=== PATIENT | female | born 1935 | race Caucasian/White ===

== ENCOUNTER 2017-01-28 16:22 | Inpatient (IN) | payer MEDICARE ==
[2017-01-28] MEDS ORDERED: NS 0.9% 1000 ML* 1,000 ML IV SCH (17:30)
[2017-01-28 17:36] LABS: Hematocrit 16 % (35-47); Mean Corpuscular HGB Conc 28 g/dl (31-36); Mean Corpuscular Hemoglobin 17 pg (27-31); Mean Corpuscular Volume 59 fL (80-97); Mean Platelet Volume 8 um3 (7.4-10.4); Red Blood Count 2.71 10^6/ul (4.0-5.4); Red Cell Distribution Width 19 % (10.5-15); White Blood Count 6.9 10^3/ul (3.5-10.8)
[2017-01-28 17:37] LABS: Add Diff/Slide Review? Manual Diff Added; Comments Flag Yes
[2017-01-28 17:38] LABS: Hemoglobin 4.5 g/dl (12.0-16.0)
[2017-01-28 17:43] LABS: ALT 17 U/L (7-52); AST 23 U/L (13-39); Alkaline Phosphatase 53 U/L (34-104); Anion Gap 3 mmol/L (2-11); Blood Urea Nitrogen 13 mg/dL (6-24); C Reactive Protein < 1.00 mg/L (< 5.00); CO2 Carbon Dioxide 34 mmol/L (22-32); Calcium 8.9 mg/dL (8.6-10.3); Chloride 94 mmol/L (101-111); EGFR African American 74.8 (>60); EGFR Non-African American 58.2 (>60); Glucose 99 mg/dL (70-100); Magnesium 2.1 mg/dL (1.9-2.7); Potassium 4.2 mmol/L (3.5-5.0); Sodium 131 mmol/L (133-145); Total Protein 6.2 g/dL (6.4-8.9)
--- NOTE | 2017-01-28 17:54 | RAD ---
INDICATION: Shortness of breath. COMPARISON: Comparison is made with a prior chest x-ray study from December 06, 2015. TECHNIQUE: A portable view of the chest was obtained. FINDINGS: Cardiac and mediastinal contours appear to be within normal limits. There is mild prominence of the interstitial markings which which are unchanged. The lungs are hyperinflated and otherwise clear. No pleural effusion is seen. IMPRESSION: FINDINGS SUGGESTIVE OF COPD, NO EVIDENCE FOR ACUTE FINDING.
[2017-01-28 17:55] LABS: TSH (Thyroid Stimulating Horm) 2.39 mcIU/mL (0.34-5.60)
[2017-01-28 17:59] LABS: Eosinophils % 1 % (0-6); Hypochromasia 3+; Macrocytosis 2+; Microcytosis 1+; Neutrophil % 72 % (38-83)
[2017-01-28 18:22] LABS: Albumin 4.2 g/dL (3.2-5.2); Creatine Kinase 262 U/L (10-223)
[2017-01-28] MEDS ORDERED: Ondansetron INJ* 2 MG/ML VIAL IV PRN (18:50)
[2017-01-28] MEDS ORDERED: Acetaminophen TAB* 325 MG PO PRN (18:50)
[2017-01-28] MEDS ORDERED: Albuterol 2.5 MG/3 ML NEB.SOL* (0.083%) INH PRN (18:54)
[2017-01-28] MEDS ORDERED: Cyclobenzaprine TAB* 10 MG PO PRN (18:55)
[2017-01-28] MEDS ORDERED: Docusate CAP* 100 MG PO PRN (18:55)
--- NOTE | 2017-01-28 19:12 | ED ---
I, Cong,Angelia, scribed for Tone Hsu MD on 01/28/17 at 1723 . Complex/Multi-Sys Presentation - HPI Summary HPI Summary: This 81 y/o female presents to ED for acute anemia today. Pt was at Dr. Bird' s office today for regular check up and came back to find message in machine informing that pt is "dangerously anemic" and strongly recommending a visit to ED. Pt currently reports exertional SOB and lightheaded dizziness. She denies any melena, or blood noted in stool. Pt is not on blood thinner. PMHx is significant for cardiac valvular dz, known anemia, COPD with home oxygen use of 3 L all day. - History Of Current Complaint Chief Complaint: EDWeakness Time Seen by Provider: 01/28/17 17:11 Hx Obtained From: Patient, Medical Records Onset/Duration: Sudden Onset Timing: Constant Associated Signs And Symptoms: Positive: Dizziness - lightheaded dizziness, SOB. Negative: Melena, Fever, Anticoagulation Therapy - Allergies/Home Medications Allergies/Adverse Reactions: Allergies Allergy/AdvReac Type Severity Reaction Status Date / Time Codeine AdvReac Intermediate Vomiting Verified 01/28/17 16:40 Hydrocodone AdvReac Intermediate Vomiting Verified 01/28/17 16:40 Propoxyphene [From Darvon] AdvReac Intermediate Vomiting Verified 01/28/17 16:40 Tramadol [From Ultram] AdvReac Intermediate Vomiting Verified 01/28/17 16:40 Diphenhydramine AdvReac Unknown Unknown Verified 01/28/17 16:40 [From Benadryl] Reaction Details Home Medications: Home Medications ALPRAZolam TAB* [Xanax TAB*] 0.25 mg PO TID PRN 01/28/17 [History Confirmed ] Albuterol Sulfate [Proair Respiclick] 2 puff INH QID PRN 01/28/17 [History Confirmed 01/28/17] Budesonide NEB* [Pulmicort NEB*] 0.5 mg INH BID PRN 01/28/17 [History Confirmed 01/28/17] Cimetidine TAB (NF) [Tagamet TAB (NF)] 400 mg PO BID PRN 01/28/17 [History Confirmed 01/28/17] Docusate Sodium [Stool Softener] 100 mg PO BID PRN 01/28/17 [History Confirmed 01/28/17] Hypromellose (Ophth) [Systane Overnight Therapy] 0.3 % BOTH EYES BEDTIME PRN [History Confirmed 01/28/17] Montelukast Sodium TAB* [Singulair TAB*] 10 mg PO DAILY 01/28/17 [History Confirmed 01/28/17] Omeprazole CAP* [Prilosec CAP* 20 MG] 20 mg PO DAILY 01/28/17 [History Confirmed 01/28/17] guaiFENesin ER TAB [Mucinex*] 600 mg PO BID PRN 01/28/17 [History Confirmed ] PMH/Surg Hx/FS Hx/Imm Hx Endocrine/Hematology History: Denies: Hx Diabetes Cardiovascular History: Reports: Hx Angina - usually mid to left chest, Hx Hypertension, Hx Valvular Heart Disease, Other Cardiovascular Problems/ Disorders - Aortic stenosis Respiratory History: Reports: Hx Chronic Obstructive Pulmonary Disease (COPD) GI History: Reports: Hx Diverticulosis - divericulitis Musculoskeletal History: Reports: Hx Arthritis - lumbar spine, Hx Fibromyalgia Sensory History: Reports: Hx Contacts or Glasses, Hx Glaucoma, Hx Vision Problem Opthamlomology History: Reports: Hx Contacts or Glasses, Hx Glaucoma, Hx Vision Problem Neurological History: Reports: Hx Headaches Psychiatric History: Reports: Hx Anxiety, Hx Depression - Surgical History Surgery Procedure, Year, and Place: HYSTERECTOMY, TONSILLECTOMY, BILAT BREAST BIOPSIES (BENIGN FIBROID CYSTS), APPENDECTOMY Hx Anesthesia Reactions: No Infectious Disease History: No Infectious Disease History: Denies: Traveled Outside the [place] in Last 30 Days - Family History Known Family History: Positive: Cardiac Disease - Positive heart failure to both parents, Other - Positive breast CA to sister - Social History Occupation: Retired Alcohol Use: None Hx Substance Use: No Substance Use Type: Reports: None Hx Tobacco Use: Yes Smoking Status (MU): Former Smoker Review of Systems Negative: Fever, Chills Positive: Other - anemic per bloodwork from Dr. Bird's office. Positive: Shortness Of Breath - exertional Neurological: Other - positive for dizziness Negative: Anxious, Depressed All Other Systems Reviewed And Are Negative: Yes Physical Exam Triage Information Reviewed: Yes Vital Signs On Initial Exam: Initial Vitals Temp Pulse Resp BP Pulse Ox 99.7 F 93 20 120/102 100 03/13/17 16:37 01/28/17 16:37 01/28/17 16:37 01/28/17 16:37 01/28/17 16:37 Vital Signs Reviewed: Yes Appearance: Positive: Well-Appearing, No Pain Distress Skin: Positive: Pale Head/Face: Positive: Normal Head/Face Inspection Eyes: Positive: EOMI, GRACE Neck: Positive: Supple, Nontender Respiratory/Lung Sounds: Positive: Clear to Auscultation, Breath Sounds Present Cardiovascular: Positive: Murmur Abdomen Description: Positive: Nontender, No Organomegaly Bowel Sounds: Positive: Present Musculoskeletal: Positive: Strength/ROM Intact Neurological: Positive: Sensory/Motor Intact, Alert, Oriented to Person Place, Time Psychiatric: Positive: Affect/Mood Appropriate AVPU Assessment: Alert Diagnostics - Vital Signs Vital Signs Temp Pulse Resp BP Pulse Ox 01/28/17 16:37 99.7 F 93 20 120/102 100 - Laboratory Lab Results: Lab Results 01/28/17 01/28/17 01/28/17 Range/Units 16:50 16:50 16:50 WBC 6.9 (3.5-10.8) 10^3/ul RBC 2.71 L (4.0-5.4) 10^6/ul RBC (Retic) Cancelled Hgb 4.5 L* (12.0-16.0) g/dl Hct 16 L (35-47) % HCT (Retic) Cancelled MCV 59 L (80-97) fL MCH 17 L (27-31) pg MCHC 28 L (31-36) g/dl RDW 19 H (10.5-15) % Plt Count 269 (150-450) 10^3/ul MPV 8 (7.4-10.4) um3 Absolute Neuts (auto) 5.0 (1.5-7.7) 10^3/ul Absolute Lymphs (auto) 1.3 (1.0-4.8) 10^3/ul Absolute Monos (auto) 0.6 (0-0.8) 10^3/ul Absolute Eos (auto) 0.07 (0-0.6) 10^3/ul Absolute Basos (auto) 0 (0-0.2) 10^3/ul Absolute Nucleated RBC 0 10^3/ul Neutrophils % 72 (38-83) % Lymphocytes % 19 L (25-47) % Monocytes % 8 (0-13) % Eosinophils % 1 (0-6) % Normal RBC Morphology Not Reportable Hypochromasia 3+ Microcytosis 1+ Macrocytosis 2+ Acanthocytes (Spur) 2+ Retic Count, Calc Cancelled Corrected Retic Count Cancelled Retic Shift Factor Cancelled Retic Production Index Cancelled Immature Retic Fraction Cancelled Mean Retic Volume Cancelled INR (Anticoag Therapy) 1.04 (0.89-1.11) APTT 27.3 (26.0-36.3) seconds D-Dimer, Quantitative < 200 (Less Than 230) ng/mL Sodium 131 L (133-145) mmol/L Potassium 4.2 (3.5-5.0) mmol/L Chloride 94 L (101-111) mmol/L Carbon Dioxide 34 H (22-32) mmol/L Anion Gap 3 (2-11) mmol/L BUN 13 (6-24) mg/dL Creatinine 0.93 (0.51-0.95) mg/dL Est GFR ( Amer) 74.8 (>60) Est GFR (Non-Af Amer) 58.2 (>60) BUN/Creatinine Ratio 14.0 (8-20) Glucose 99 (70-100) mg/dL Lactic Acid (0.5-2.0) mmol/L Calcium 8.9 (8.6-10.3) mg/dL Magnesium 2.1 (1.9-2.7) mg/dL Iron Pending TIBC Pending % Saturation Pending Unsat Iron Binding Pending Ferritin Pending Total Bilirubin 0.30 (0.2-1.0) mg/dL AST 23 (13-39) U/L ALT 17 (7-52) U/L Alkaline Phosphatase 53 (34-104) U/L Lactate Dehydrogenase Pending Total Creatine Kinase 262 H (10-223) U/L CK-MB (CK-2) 12.9 H (0.6-6.3) ng/mL Troponin I 0.00 (<0.04) ng/mL C-Reactive Protein < 1.00 (< 5.00) mg/L B-Natriuretic Peptide ( - 100) pg/mL Total Protein 6.2 L (6.4-8.9) g/dL Albumin 4.2 (3.2-5.2) g/dL Globulin 2.0 (2-4) g/dL Albumin/Globulin Ratio 2.1 (1-3) Vitamin B12 Pending Folate Pending TSH 2.39 (0.34-5.60) mcIU/mL Blood Type Antibody Screen Crossmatch 01/28/17 01/28/17 01/28/17 Range/Units 16:50 16:50 16:50 WBC (3.5-10.8) 10^3/ul RBC (4.0-5.4) 10^6/ul RBC (Retic) Hgb (12.0-16.0) g/dl Hct (35-47) % HCT (Retic) MCV (80-97) fL MCH (27-31) pg MCHC (31-36) g/dl RDW (10.5-15) % Plt Count (150-450) 10^3/ul MPV (7.4-10.4) um3 Absolute Neuts (auto) (1.5-7.7) 10^3/ul Absolute Lymphs (auto) (1.0-4.8) 10^3/ul Absolute Monos (auto) (0-0.8) 10^3/ul Absolute Eos (auto) (0-0.6) 10^3/ul Absolute Basos (auto) (0-0.2) 10^3/ul Absolute Nucleated RBC 10^3/ul Neutrophils % (38-83) % Lymphocytes % (25-47) % Monocytes % (0-13) % Eosinophils % (0-6) % Normal RBC Morphology Hypochromasia Microcytosis Macrocytosis Acanthocytes (Spur) Retic Count, Calc Corrected Retic Count Retic Shift Factor Retic Production Index Immature Retic Fraction Mean Retic Volume INR (Anticoag Therapy) (0.89-1.11) APTT (26.0-36.3) seconds D-Dimer, Quantitative (Less Than 230) ng/mL Sodium (133-145) mmol/L Potassium (3.5-5.0) mmol/L Chloride (101-111) mmol/L Carbon Dioxide (22-32) mmol/L Anion Gap (2-11) mmol/L BUN (6-24) mg/dL Creatinine (0.51-0.95) mg/dL Est GFR ( Amer) (>60) Est GFR (Non-Af Amer) (>60) BUN/Creatinine Ratio (8-20) Glucose (70-100) mg/dL Lactic Acid 0.9 (0.5-2.0) mmol/L Calcium (8.6-10.3) mg/dL Magnesium (1.9-2.7) mg/dL Iron TIBC % Saturation Unsat Iron Binding Ferritin Total Bilirubin (0.2-1.0) mg/dL AST (13-39) U/L ALT (7-52) U/L Alkaline Phosphatase (34-104) U/L Lactate Dehydrogenase Total Creatine Kinase (10-223) U/L CK-MB (CK-2) (0.6-6.3) ng/mL Troponin I (<0.04) ng/mL C-Reactive Protein (< 5.00) mg/L B-Natriuretic Peptide 74 ( - 100) pg/mL Total Protein (6.4-8.9) g/dL Albumin (3.2-5.2) g/dL Globulin (2-4) g/dL Albumin/Globulin Ratio (1-3) Vitamin B12 Folate TSH (0.34-5.60) mcIU/mL Blood Type B Positive Antibody Screen Negative Crossmatch See Detail Result Diagrams: 01/28/17 16:50 01/28/17 16:50 Lab Statement: Any lab studies that have been ordered have been reviewed, and results considered in the medical decision making process. - Radiology CXR Xray Interpretation: No Acute Changes - COPD. No acute findings. Radiology Interpretation Completed By: Radiologist - EKG 1712 Cardiac Rate: NL - 92 bpm EKG Rhythm: Sinus Rhythm ST Segment: Normal Ectopy: None - Additional Comments Diagnostic Additional Comments: Stool Occult -- negative Re-Evaluation - Re-Evaluation First Eval Re-Evaluation Time: 17:44 Comment: MD in room to update pt on bloodwork results. Plan of care involving possible hospital admission and blood transfusion is discussed, and pt and son present at bedside are agreeable. Complex Multi-Symp Course/Dx Assessment/Plan: ADMIT HOSPITALIST STABLE - Diagnoses Provider Diagnoses: Anemia, Weakness - Physician Notifications Discussed Care Of Patient With: Dr. Verma(Hospitalist) paged at 1743 PM. Call returned at 1804 PM. Discharge - Discharge Plan Condition: Stable Disposition: ADMITTED TO [facility] documentation as recorded by the Cong lopez Soohyun accurately reflects the service I personally performed and the decisions made by me, Tone Hsu MD.
[2017-01-28 19:14] LABS: Total Iron Binding Capacity 515 mcg/dL (250-450); Transferrin 368 mg/dL (203-362)
[2017-01-28 19:35] LABS: Ferritin < 10.0 ng/mL (11-307)
[2017-01-28 19:37] LABS: Iron < 15 ug/dL (50-212)
[2017-01-28 19:39] LABS: Folate 16.58 ng/mL (>3.99)
[2017-01-28 19:40] LABS: Vitamin B12 506 pg/mL (180-914)
[2017-01-28] MEDS: ALPRAZolam TAB* 0.25 MG PO PRN (20:02)
[2017-01-28] MEDS: Omeprazole CAP* 20 MG PO SCH (20:04)
[2017-01-28 20:35] LABS: Urine Bilirubin Negative (Negative); Urine Glucose Negative (Negative); Urine Nitrite Negative (Negative)
[2017-01-28] MEDS ORDERED: Furosemide IV* 10 MG/ML 2 ML VIAL (20 MG) IV SLOW PU ONE (21:20)
[2017-01-28] MEDS: Budesonide NEB* 0.5 MG/2 ML NEB.SOLN INH SCH ×2 (21:37→21:39)
--- NOTE | 2017-01-29 00:51 | HP ---
HISTORY AND PHYSICAL: DATE OF ADMISSION: 01/28/17 PRIMARY CARE PROVIDER: Dr. Bird ATTENDING PHYSICIAN WHILE IN THE HOSPITAL: Dr. Swetha Saleh *(report dictated by Chris Vines NP). CONSULTING ONCOLOGIST: Dr. Salazar. CHIEF COMPLAINT: Abnormal blood work. HISTORY OF PRESENT ILLNESS: Ms. Gomez is a 81-year-old female patient who came into the ER today after she was instructed to do because she was profoundly anemic. The patient states that over the last week or so, she has been feeling a little bit more short of breath. She says she is usually able to walk from her entire trailer and not get short of breath, but she has noticed that she has had more trouble doing this, and she has noticed that she has been needing to turn up her oxygen over the last couple of months. She says that she does take prednisone and Aleve. She takes the Aleve about 3 times a week and has been doing that for the last couple of months. Says she has been taking steroids on a chronic basis since being here about a year ago. She says that she has not noticed any tarry black stools, that all of her bowel movements have been brown. She was heme negative here in the ER. She denied any chest pain. Denied shortness of breath at rest. She came to the ER, was evaluated. It was noted that her hemoglobin was 4.5. She denied any coffee- ground emesis. Denies having any abdominal pain. Her only main complaint is that she feels short of breath with exertion. She denies having any syncopal episodes, lightheadedness, and she denies feeling dizzy. She was evaluated in the ER because of low H and H. Hospitalist service was asked to evaluate for admission. PAST MEDICAL HISTORY: Significant for: 1. Aortic stenosis. 2. COPD. 3. Anxiety. PAST SURGICAL HISTORY: 1. She has had a tonsillectomy. 2. Hysterectomy. 3. Breast biopsy which was benign. HOME MEDICATIONS: According to the list that we were able to obtain include: 1. Prednisone 2.5 mg p.o. daily. 2. Zofran 4 mg p.o. every 8 hours as needed. 3. Pulmicort 0.5 inhaled b.i.d. as needed. 4. Desloratadine 5 mg p.o. daily as needed. 5. Stool softener 100 mg p.o. b.i.d. as needed. 6. ProAir 2 puffs inhaled q.i.d. as needed. 7. Tagamet 400 mg p.o. b.i.d. as needed. 8. Systane eye drops both eyes at bedtime as needed. 9. Flexeril 10 mg p.o. t.i.d. as needed. 10. Refresh liquid gel 1 drop both eyes b.i.d. as needed. 11. Fosamax 70 mg daily. 12. Mucinex 600 mg p.o. b.i.d. as needed. 13. DuoNeb 1 neb inhaled b.i.d. as needed. 14. Prilosec 20 mg daily. 15. Xanax 0.25 mg p.o. t.i.d. as needed. 16. Spiriva 1 capsule inhaled daily. 17. Singulair 10 mg p.o. daily. ALLERGIES TO MEDICATIONS: Include CODEINE, HYDROCODONE, DARVOCET, TRAMADOL, and BENADRYL. FAMILY HISTORY: Mother had a history of CHF. Father had a history of CHF. SOCIAL HISTORY: She was a smoker. She smoked for about 44 years. She quit 22 years ago. Does not drink alcohol. Surrogate decision maker is her son, Walter. REVIEW OF SYSTEMS: There is no documented fever. She denied having any significant weight change. There was no double vision. No ear discharge. No rhinorrhea. No sore throat. No thyroid enlargement. Denies any chest pain. there is orthopnea. There is dyspnea on exertion. No abdominal pain. No nausea. No vomiting. No dysuria. No frequency. No loss of consciousness. No pruritus. No skin ulcerations. Review of 14 systems completed, all others negative. PHYSICAL EXAMINATION GENERAL: At this time, Ms. Gomez is a 81-year-old female patient. She appears to be well developed. She is sitting in the ER stretcher and does not appear to be in any acute distress. VITAL SIGNS: Blood pressure of 126/65 with a pulse of 93, respirations were 20 , O2 sat was 100%, temperature was 99.7. HEENT: Head atraumatic and normocephalic. Eyes: EOMs are intact. Sclerae anicteric. Throat: Oral mucosa appears to be dry. No oropharyngeal erythema. NECK: Supple. LUNGS: Clear to auscultation bilaterally. They were diminished, but no wheezes , rales, or rhonchi. HEART: Sounds S1, S2. Regular rate and rhythm. No murmurs, rubs, or gallops. ABDOMEN: Soft, it was flat, nontender. Bowel sounds present. EXTREMITIES: Pulses are 2+ throughout. She is able to move all 4 extremities with 5/5 strength. NEUROLOGIC: The patient is awake, alert, and oriented x3. No gross focal deficits. SKIN: Intact. LABORATORY DATA AND DIAGNOSTIC STUDIES: Today revealed a WBC of 6.9, RBC of 2.71, hemoglobin of 4.5, hematocrit of 16, platelet count of 269. She had an INR of 1.04. PTT 27.3. D-dimer less than 200. Sodium 131, potassium 4.2, chloride of 94, bicarb 34, BUN 13, creatinine of 0.93, glucose 99, lactic 0.9, calcium 8.9, magnesium 2.1. Total bili 0.3, AST 23, ALT 17, alk phos 53. CK 262. Troponin 0. BNP was 74. TSH of 2.39. She had an EKG which showed a normal sinus rhythm, rate of 92. No ST elevations or T-wave inversions were noted. She had a chest x-ray obtained today which revealed findings suggestive of COPD. No acute findings. She had a Hemoccult which was negative. Old medical records were reviewed. ASSESSMENT AND PLAN: Ms. Gomez is a 81-year-old female patient today coming with abnormal blood work from the outpatient setting. She was evaluated here in the ED. Hospitalist service was asked to evaluate for admission due to low H and H. She will be admitted under inpatient status for: 1. Anemia: The etiology is unclear. Certainly, she may have had a slow upper GI bleed that has progressed and it has been a slow trickle, if you will, and she has been on steroids and prednisone. Certainly, she does appear to have a microcytic anemia, so I think at this point I did touch base with Dr. Clark who proposed to do an upper GI in the morning. I did put her on a b.i.d. PPI for the time being. I do not think she is actively bleeding right at this moment and I do not think she needs a Protonix drip. We will give her 2 units of blood, we will do serial H and H, make her n.p.o. after midnight. I did touch base with Dr. Salazar. The plan will be send off iron studies, B12, reticulocyte count, and LDH. If the iron studies are low, then Heme/Onc will not follow, but if they are normal, then Heme/Onc will get involved, that was the plan that I proposed with Dr. Salazar, which I think is appropriate. If the iron is low, obviously we will supplement it. Her Hemoccult here was negative and she is hemodynamically stable.. We will follow. 2. Aortic stenosis: Follow up with Dr. Francisco. 3. Chronic obstructive pulmonary disease: Breathing appears to be stable at this point. I think the reason she has been feeling dyspnea on exertion is because her H and H has been so low, so we will replace and give her some blood. I have ordered p.r.n. nebs and I will continue her prednisone and her O2 as prescribed. 4. Anxiety: Continue p.r.n. Xanax. 5. DVT prophylaxis: I am just going to put her on SCDs for the time being. 6. Fluids, electrolytes, and nutrition: She can have a regular diet until midnight. 7. Code status: She is a DNR. TIME SPENT: Time spent on the admission was approximately 60 minutes; greater than half the time was spent [id number] with the patient obtaining my history and physical, other half the time spent going over the plan of care with the patient and implementing plan of care. I did discuss the plan of care with my attending, Dr. Saleh; she is in agreement. CHRIS VINES NP CC: Dr. Bird; Dr. Salazar; Dr. Clark* [id number]/[facility] #: [id number] [facility]ENTERTierra
[2017-01-29 03:43] LABS: Hematocrit 25 % (35-47)
[2017-01-29 03:55] LABS: Comments Flag Yes
[2017-01-29] MEDS: Budesonide NEB* 0.5 MG/2 ML NEB.SOLN INH SCH ×3 (05:22→19:28)
[2017-01-29] MEDS: ALPRAZolam TAB* 0.25 MG PO PRN ×2 (05:52→17:23)
[2017-01-29 07:14] LABS: BUN/Creatinine Ratio 22.9 (8-20); Calcium 8.6 mg/dL (8.6-10.3); EGFR African American 160.4 (>60); EGFR Non-African American 124.8 (>60); Potassium 3.9 mmol/L (3.5-5.0)
[2017-01-29 07:18] LABS: Hematocrit 27 % (35-47); Hemoglobin 8.1 g/dl (12.0-16.0); Mean Corpuscular HGB Conc 31 g/dl (31-36); Mean Corpuscular Hemoglobin 22 pg (27-31); Mean Corpuscular Volume 70 fL (80-97); Mean Platelet Volume 9 um3 (7.4-10.4); Red Blood Count 3.76 10^6/ul (4.0-5.4); Red Cell Distribution Width 29 % (10.5-15)
[2017-01-29 07:22] LABS: Add Diff/Slide Review? Manual Diff Added; Comments Flag Yes
[2017-01-29] MEDS ORDERED: Omeprazole CAP* 20 MG PO SCH (07:30)
[2017-01-29 08:22] LABS: Eosinophils % 1 % (0-6); Neutrophil % 74 % (38-83)
[2017-01-29 08:23] LABS: Hypochromasia 3+; Microcytosis 3+
[2017-01-29] MEDS: predniSONE TAB* 5 MG PO SCH (08:47)
[2017-01-29] MEDS: Montelukast Sodium TAB* 10 MG PO SCH (08:47)
[2017-01-29] MEDS: Pantoprazole IV* 40 MG IV SCH (08:47)
[2017-01-29] MEDS: Omeprazole CAP* 20 MG PO SCH (08:53)
[2017-01-29] MEDS ORDERED: Spiriva Inhaler DEVICE* 1 EACH DEVICE ONE (09:00)
[2017-01-29] MEDS: Tiotropium CAP.INH* CAP.INH/18 MCG INH SCH (09:08)
[2017-01-29] MEDS: [UNRECOGNIZED DRUG - OTHER] ALT NARE PRN ×2 (10:22→18:25)
[2017-01-29] MEDS ORDERED: Midazolam* 1 MG/ML 5 ML VIAL (5 MG) ONE (10:55)
[2017-01-29] MEDS ORDERED: Meperidine SYRINGE* 50 MG/ML ONE (10:55)
--- NOTE | 2017-01-29 15:43 | PN ---
Subjective Date of Service: 01/29/17 Interval History: HOSPITALIST PROGRESS NOTE Patient seen and examined at bedside. Anxious about her procedure, but offers no other complaints. Family History: Unchanged from Admission Social History: Unchanged from Admission Past Medical History: Unchanged from Admission Objective Active Medications: Acetaminophen (Tylenol Tab*) 650 mg PO Q4H PRN PRN Reason: FEVER/PAIN Albuterol (Ventolin 2.5 Mg/3 Ml Neb.Maureen*) 2.5 mg INH Q2H PRN PRN Reason: SOB/WHEEZING Last Admin: 01/29/17 05:21 Dose: 2.5 mg Alprazolam (Xanax Tab*) 0.25 mg PO TID PRN PRN Reason: ANXIETY Last Admin: 01/29/17 05:52 Dose: 0.25 mg Budesonide (Pulmicort Neb*) 0.5 mg INH BID [facility] Last Admin: 01/29/17 09:12 Dose: Not Given Cyclobenzaprine HCl (Flexeril Tab*) 10 mg PO TID PRN PRN Reason: spams Docusate Sodium (Colace Cap*) 100 mg PO BID PRN PRN Reason: CONSTIPATION Montelukast Sodium (Singulair Tab*) 10 mg PO DAILY [facility] Last Admin: 01/29/17 08:47 Dose: 10 mg Pto - Vicks (Vapoinhaler 1 Aer) 1 aer ALT NARE QID PRN PRN Reason: nasal congestion Last Admin: 01/29/17 10:22 Dose: 1 aer Ondansetron HCl (Zofran Inj*) 4 mg IV Q6H PRN PRN Reason: NAUSEA Last Admin: 01/29/17 12:47 Dose: 4 mg Pantoprazole Sodium (Protonix Iv*) 40 mg IV DAILY [facility] Last Admin: 01/29/17 08:47 Dose: 40 mg Prednisone (Deltasone Tab*) 2.5 mg PO DAILY WITH MEAL [facility] Last Admin: 01/29/17 08:47 Dose: 2.5 mg Sodium Chloride (Sodium Chloride 0.65% Nasal Marana*) 2 spray BOTH NARES ONCE PRN PRN Reason: MD HSU Tiotropium Shelby (Spiriva Cap.Inh*) 1 cap INH DAILY [facility] Last Admin: 01/29/17 09:08 Dose: 1 cap.inh Vital Signs 01/29/17 01/29/17 01/29/17 08:00 09:12 12:41 Temperature 97.9 F Pulse Rate 90 86 Respiratory 16 16 16 Rate Blood Pressure 166/83 (mmHg) O2 Sat by Pulse 98 98 Oximetry Oxygen Devices in Use Now: Nasal Cannula Appearance: Pleasant elderly lady sitting up in bed in NAD. Eyes: No Scleral Icterus Ears/Nose/Mouth/Throat: Mucous Membranes Moist Neck: Trachea Midline Respiratory: Symmetrical Chest Expansion and Respiratory Effort, Clear to Auscultation Cardiovascular: RRR - Normal S1 and S2 Abdominal: NL Sounds; No Tenderness; No Distention Neurological: Alert and Oriented x 3, NL Muscle Strength and Tone Lines/Tubes/Other Access: Clean, Dry and Intact Peripheral IV Result Diagrams: 01/29/17 06:11 01/29/17 06:11 Assess/Plan/Problems-Billing Assessment: Mrs. Gomez is a 81yo F with PMH of mild aortic stenosis, COPD, anxiety, who was sent to ED due to severe anemia with Hb 4.5. - Patient Problems (1) GI bleed Comment: - Although the patient denies melena and hematemesis, she was on NSAIDs and steroids before. - Prelim report of EGD is of blood in the duodenum, but no ulcer visualized. - Continue PPI. - No indication for colonoscopy at this time. (2) Iron deficiency anemia Comment: - Associated with slow GI bleed. - S/p 2 PRBC - Hb 8.1 with symptomatic improvement. - Anemia w/u reviewed - severe iron deficiency with iron <15 and ferritin<10 - d /w Dr. Clark will give Venofer prior to discharge and may benefit of further infusions as outpatient. (3) COPD (chronic obstructive pulmonary disease) Comment: - Stable. - Continue bronchodilators, steroids, and supplemental O2. (4) Anxiety Comment: - Continue PRN Xanax. (5) DVT prophylaxis Comment: - Pharmacological prophylaxis contraindicated in the setting of GI bleed/severe anemia. - SCDs. Status and Disposition: Inpatient. Will try to contact family member who's a RN, as she may be helpful with patient's follow up as outpt.
[2017-01-29] MEDS ORDERED: Iron Sucrose* 200 MG in NS 0.9% 250 ML* 250 ML IVPB ONE (15:47)
[2017-01-29] MEDS ORDERED: PROCHLORPERAZINE INJ 5 MG/ML 2 ML VIAL IV PRN (16:34)
[2017-01-29] MEDS: Saline NASAL SPRAY 0.65%* BTL BOTH NARES PRN (20:15)
--- NOTE | 2017-01-30 00:35 | CONS ---
GASTROENTEROLOGY CONSULT: DATE : 01/29/17 CONSULTING PROVIDERS: Yovani Bird*; Chris Vines NP REASON FOR CONSULT: Profound microcytic anemia with no overt GI symptoms and heme- negative stool. HISTORY OF PRESENT ILLNESS: This 81-year-old woman came to the ER complaining of shortness of breath with reported hemoglobin below 5. She had been feeling fatigued for a number of weeks and went to see Dr Bird. He found her blood count to be quite low and sent her to the emergency room. The prior known normal CBC was November 2015, the hemoglobin of 11.6, and at that time an MCV of 91. Over the last year or two, she has not had any dyspepsia or vomiting. Her appetite has been pretty good. She said she eats a lot of junk food for breakfast and then gets Meals on Wheels for lunch and dinner. She seemed to enjoy describing eating Erin cakes, donuts, Pop-Tarts, and the like. Her bowel pattern is little bit constipated. She denies any rectal bleeding or black stools. Initially NSAIDs were denied; however, specific questions revealed the use of naproxen for dental pain and other indications begun around October 2015. She denies using any aspirin. Because of COPD, she had been taking low dose chronic prednisone. PAST MEDICAL HISTORY: 1. Osteoporosis - loss of height recently. 2. COPD - quit smoking 10 or more years ago. 3. Anxiety. 4. Status post complete hysterectomy in 1976. 5. Status post incidental appendectomy. 6. Status post tonsillectomy. 7. Colon Polyps - May 2009 2 Tubular Adenomas in f/u to [address] Chapin MEDICATIONS: The hospitalist H and P lists 17 items, 12 of which are p.r.n.'s and that might merit verification. SOCIAL HISTORY: She is retired, with her daughter, Denice Morelos, living with her for 20 years. Her son lives in [place] and his , Charlene Hdez, is a nurse at [employer]. REVIEW OF SYSTEMS: She had a negative cardiac catheterization in 2008 with an ejection fraction in the 55% to 60%. There is no history of syncope, arrhythmias, hemoptysis, TB, hepatitis, or gallstones. She had a breast biopsy many years ago that was negative. She has unspecified aortic stenosis. PHYSICAL EXAM: She is a frail elderly woman, short stature, in a wheelchair, and with seeming good energy level and is a good and energetic historian. HEENT exam shows no icterus. She has no adenopathy. Her lungs are clear with diminished breath sounds, but remarkably slow, but no wheezes. Breast and pelvic exam is deferred. The abdomen is mildly rounded, quite soft, and nontender. There are no hernias. Perianal inspection is normal. Rectal reveals very nodular, gummy, firm stool, difficult to sample that turned out to be heme negative. It is virtually an impaction. Extremities show no edema. HOSPITAL COURSE: She has been transfused 2 units and her hemoglobin is up to 8.1. BUN is unchanged at 11, creatinine 0.48. Iron less than 15, TIBC 15, saturation 3%. Vitamin B12 506. LDH 187. IMPRESSION: This 81-year-old woman with advanced chronic obstructive pulmonary disease presented with very low hemoglobin and MCV and as expected with those values severe iron deficiency documented. She has not had any focal gastrointestinal symptom and no overt signs of gastrointestinal blood loss and indeed her stool has been Hemoccult negative twice. With a history of taking naproxen multiple doses a week for over a year, an upper gastrointestinal source or diffuse upper gastrointestinal oozing seems likely explanation possibly in conjunction with reduced iron absorption secondary to taking Prilosec. Not entirely clear why she is on the Prilosec. At this time, upper endoscopy appears appropriate and then reevaluation of her med list where her [id number] could play a very strong supporting role. Low-dose iron supplementation would likely help. There is no strong indication that colonic problem is contributing to this and with her severe chronic obstructive pulmonary disease, repeating her colonoscopy at this time still appears not to be a priority. [id number]/[facility] #: [id number] STEFFANY
[2017-01-30] MEDS: ALPRAZolam TAB* 0.25 MG PO PRN ×3 (04:05→16:27)
[2017-01-30] MEDS: Saline NASAL SPRAY 0.65%* BTL BOTH NARES PRN (04:05)
--- NOTE | 2017-01-30 05:34 | PRO ---
DATE: 01/29/17 - Inpatient room #415-02 REFERRING PHYSICIAN: Yovani Bird* PROCEDURE: Upper gastrointestinal endoscopy through the distal duodenum with pediatric ultra slim scope. INDICATION: A 81-year-old woman presented to the emergency room with hemoglobin of 4.5. She was very tired and her primary physician obtained a CBC and then sent her to the ER. She denies any vomiting or overt bleeding. She has been constipated. In the ER , stool was heme negative. The use of Aleve was revealed and gentle followup questions continue to find other uses for it. She also takes some ibuprofen for headaches. Naproxen is used for dental pain. She appears to have been on omeprazole, though she has a list of 17 meds (12 of them p.r.n.'s) and the list would merit verification. ENDOSCOPIST: Dr. Clark. MEDICATIONS: Midazolam 3.5, meperidine 25 with good comfort and no gagging. 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 She is in no overt distress. She appears underweight. EGD: Larynx - symmetric uninflamed views. Esophagus - easily entered. The mucosa is normal in the upper mid and lower esophagus with EG junction at 37 to 38, snug and without erosions or chronic changes. Stomach - generally normal mucosa of the cardia, fundus, body, and antrum. No erosions were seen and no wispy blood loss or deformity or ulcers. There were no polyps. Duodenum - the pylorus and bulb appear normal. Just entering the second portion , a brief wisp of blood-stained mucus was seen and between folds in the distal second portion, a little bit of blood splattering was seen on the wall. There was not any active welling up. No underlying pathology could be identified. The blood was then washed clear and did not reaccumulate. There was no underlying pathology seen and thus no target to direct therapy. It clearly did not appear to be an abrasion from scope passage, but a primary very low level bleeding process before scope entrance. The third and fourth portion of the duodenum appeared normal. IMPRESSION: 1. Normal esophagus and normal stomach - this does raise the question of how she got on the omeprazole to begin with. 2. Focal duodenal bleeding - very low grade and at this time, if the naproxen is stopped, it is certainly possible no further bleeding will occur. Low dose iron replacement can be given and her Hemoccults continue to be monitored. 3. Constipation - a significant plug bordering on impaction detected post procedure via digital rectal, which was also heme negative. [id number]/[facility] #: [id number] [facility]
[2017-01-30 07:45] LABS: Hematocrit 27 % (35-47); Mean Corpuscular HGB Conc 30 g/dl (31-36); Mean Corpuscular Hemoglobin 21 pg (27-31); Mean Corpuscular Volume 71 fL (80-97); Mean Platelet Volume 9 um3 (7.4-10.4); Red Blood Count 3.76 10^6/ul (4.0-5.4); Red Cell Distribution Width 28 % (10.5-15); White Blood Count 6.3 10^3/ul (3.5-10.8)
[2017-01-30 08:03] LABS: Add Diff/Slide Review? Manual Diff Added; Comments Flag Yes
[2017-01-30] MEDS: Budesonide NEB* 0.5 MG/2 ML NEB.SOLN INH SCH (08:13)
[2017-01-30] MEDS: Tiotropium CAP.INH* CAP.INH/18 MCG INH SCH (08:13)
[2017-01-30] MEDS: Pantoprazole IV* 40 MG IV SCH (08:35)
[2017-01-30 08:37] LABS: Eosinophils % 1 % (0-6); Neutrophil % 79 % (38-83)
[2017-01-30] MEDS: Montelukast Sodium TAB* 10 MG PO SCH (08:39)
[2017-01-30] MEDS: predniSONE TAB* 5 MG PO SCH (08:39)
[2017-01-30 08:46] LABS: Microcytosis 1+
[2017-01-30 08:47] LABS: Hypochromasia 2+; Polychromasia 1+
[2017-01-30 08:48] LABS: Target Cells 1+
[2017-01-30 08:50] LABS: Add Path Review? YES
[2017-01-30 16:12] VITALS: BP 148/70
--- NOTE | 2017-01-30 18:36 | PN ---
Hospitalist Progress Note . HOSPITALIST DISCHARGE NOTE: See dc instructions and summary by me. Patient stable for dc dc instructions reviewed with the patient at the bedside. DC patient home today.
--- NOTE | 2017-02-04 05:27 | DS ---
DISCHARGE SUMMARY: DATE OF ADMISSION: 01/28/17 DATE OF DISCHARGE: 01/30/17 STATUS DURING HOSPITAL: Inpatient. PRINCIPAL DISCHARGE DIAGNOSIS: Severe iron-deficiency anemia with evidence on EGD of focal, but ceased duodenal bleeding. SECONDARY DIAGNOSES: 1. Aortic stenosis. 2. Chronic obstructive pulmonary disease. 3. Anxiety. 4. History of tonsillectomy, hysterectomy, breast biopsy (latter benign). DISCHARGE MEDICATION REGIMEN: New: 1. Ferrous sulfate 325 mg by mouth daily. 2. Carboxymethylcellulose 1 drop both eyes twice daily. 3. Desloratadine 5 mg by mouth daily. 4. Alendronate 70 mg by mouth weekly. 5. Ondansetron ODT 4 mg every 8 hours as needed for nausea. 6. Albuterol/ipratropium (DuoNeb) 1 neb inhalation twice daily as needed. 7. Cyclobenzaprine 10 mg by mouth 3 times daily. 8. Tiotropium 1 inhalation daily. 9. Budesonide 0.5 mg strength 1 inhalation twice daily as needed for shortness of breath. 10. Docusate 100 mg by mouth twice daily as needed for constipation. 11. Albuterol sulfate 2 puffs inhaled 4 times daily as needed for shortness of breath. 12. Cimetidine/Tagamet 400 mg by mouth twice daily for indigestion. 13. Hypromellose ophthalmologic solution/Systane overnight therapy 0.3% strength both eyes at bedtime as needed. 14. Omeprazole 20 mg by mouth daily. 15. Alprazolam 0.25 mg 3 times daily as needed for anxiety. 16. Montelukast 10 mg by mouth daily. 17. Prednisone 2.5 mg by mouth daily. 18. Guaifenesin ER 600 mg by mouth twice daily. 19. Vicks VapoInhaler 1 aerosol per naris 4 times daily as needed, alternating nares. HISTORY OF PRESENT ILLNESS AND HOSPITAL COURSE: Please see the H and P by Chris Vines NP, under the supervision of Dr. Swetha Saleh on 01/28/17. In brief , Ms. Gomez is a 81-year-old female who was brought to the emergency room following profound anemia on blood work. The patient was experiencing dyspnea on exertion with inability to walk from her trailer without getting shortness of breath. The patient takes Aleve multiple times per week and has been doing so over the past few months. She has been also taking steroids on a chronic basis for about a year. There are no dark stools noted. There was no chest pain or shortness of breath. She was evaluated in the emergency room and the only really notable finding was her hemoglobin of 4.5. There was no coffee- ground emesis described nor was there any abdominal pain. She was admitted to the hospital and she was transfused 2 units of packed red blood cells. She was seen by GI in consultation who agreed to continue iron supplementation. They requested iron studies and proceeded with an EGD which showed a normal gastric mucosa, no active bleeding, normal esophagus, but there was stopped duodenal bleeding without any concern for re-bleeding. Please see the procedure note, but it states there was "focal duodenal bleeding - very low grade and at this time, if the naproxen is stopped, it is certainly possible no further bleeding will occur." Low-dose iron replacement can be given and her Hemoccults continued to be monitored. The patient was also recommended to be treated for constipation. The patient did well following her transfusion. There was no evidence of bleeding. Multiple stools were negative for blood. She was discharged in stable condition on January 30 home with followup requested with Dr. Bird as well as VNS services in place. Ms. Gomez was counseled to come back to the emergency room if she has any worsening symptoms including but not limited to chest pain, shortness of breath , lightheadedness, dyspnea on exertion, or evidence of rectal bleeding including dark tarry stools or coffee-ground emesis. The patient said she will comply with these instructions. CONDITION ON DISCHARGE: Stable. [id number]/[facility] #: [id number] [facility]
== END 2017-01-30 17:55 | disposition home or self-care (01) | DRG 379 ==
LOC: ED 16:22 → MED 18:47
PROVIDERS: ADMIT Internal Medicine; ATTEND Internal Medicine
PROC: 30233N1 Transfusion of Nonautologous Red Blood Cells into Peripheral Vein, Percutaneous Approach (ICD-10-PCS; 2017-01-28)
PROC: 0DJ08ZZ Inspection of Upper Intestinal Tract, Via Natural or Artificial Opening Endoscopic (ICD-10-PCS; principal; 2017-01-29)
DX: K92.2 Gastrointestinal hemorrhage, unspecified (principal); Z99.81 Dependence on supplemental oxygen; J44.9 Chronic obstructive pulmonary disease, unspecified; D50.0 Iron deficiency anemia secondary to blood loss (chronic); I35.0 Nonrheumatic aortic (valve) stenosis; H40.9 Unspecified glaucoma; F32.9 Major depressive disorder, single episode, unspecified; M81.0 Age-related osteoporosis without current pathological fracture; K59.00 Constipation, unspecified; F41.9 Anxiety disorder, unspecified; Z79.52 Long term (current) use of systemic steroids; Z88.5 Allergy status to narcotic agent; Z87.891 Personal history of nicotine dependence; Z66 Do not resuscitate
CPT/HCPCS: 36415; 71010; 80048; 80053; 81003; 82272; 82550; 82553; 82607; 82728; 82746; 83010; 83540; 83550; 83605; 83615; 83735; 83880; 84443; 84484; 85014; 85018; 85025; 85060; 85379; 85610; 85730; 86140; 86850; 86900; 86901; 86922; 93005; 94640; 94760; A9270-GY; J0780; J1756; J1940; J2250; J2405; J7512; P9016; P9040

== ENCOUNTER 2018-10-20 04:46 | Inpatient (IN) | payer MEDICARE ==
[2018-10-20] MEDS ORDERED: Albuterol/Ipratropium NEB.SOL* Albuterol 2.5 MG/Ipratropium 0.5 MG 3 ML INH ONE (05:18)
[2018-10-20] MEDS ORDERED: Albuterol 2.5 MG/3 ML NEB.SOL* (0.083%) INH ONE (05:19)
--- NOTE | 2018-10-20 05:19 | ED ---
Back Pain - HPI Summary HPI Summary: This patient is a 82 year old F brought in by EMS to [facility] c/o lower back pain that began 2 days ago. Pt states two days ago she bent over and heard a pop in her back, since then it has been getting worse. The patient rates the pain 10/ 10 in severity. She denies change in ambulation. She reports she could not turn over in her sleep tonight. No history of back pain. She also c/o trouble breathing. She uses NC at home. She reports taking a Xanax earlier. - History of Current Complaint Chief Complaint: EDBackInjuryPain Stated Complaint: LOWER BACK PAIN Hx Obtained From: Patient Onset/Duration: Lasting Days, Still Present Onset/Duration: Started Days Ago, Still Present Timing: Constant Back Pain Location: Is Diffuse Severity Initially: Moderate Severity Currently: Severe Pain Intensity: 10 Pain Scale Used: 0-10 Numeric Associated Signs And Symptoms: Positive: Negative - fever - Allergies/Home Medications Allergies/Adverse Reactions: Allergies Allergy/AdvReac Type Severity Reaction Status Date / Time codeine Allergy Vomiting Verified 10/20/18 05:05 diphenhydramine Allergy Unknown Verified 10/20/18 05:07 Reaction Details hydrocodone Allergy Vomiting Verified 10/20/18 05:07 propoxyphene Allergy Vomiting Verified 10/20/18 05:07 tramadol Allergy Vomiting Verified 10/20/18 05:07 PMH/Surg Hx/FS Hx/Imm Hx Endocrine/Hematology History: Denies: Hx Diabetes Cardiovascular History: Reports: Hx Angina - usually mid to left chest, Hx Hypertension, Hx Valvular Heart Disease, Other Cardiovascular Problems/ Disorders - Aortic stenosis Respiratory History: Reports: Hx Chronic Obstructive Pulmonary Disease (COPD) GI History: Reports: Hx Diverticulosis - divericulitis Musculoskeletal History: Reports: Hx Arthritis - lumbar spine, Hx Fibromyalgia Sensory History: Reports: Hx Contacts or Glasses, Hx Glaucoma, Hx Vision Problem Opthamlomology History: Reports: Hx Contacts or Glasses, Hx Glaucoma, Hx Vision Problem Neurological History: Reports: Hx Headaches Psychiatric History: Reports: Hx Anxiety, Hx Depression - Surgical History Surgery Procedure, Year, and Place: HYSTERECTOMY, TONSILLECTOMY, BILAT BREAST BIOPSIES (BENIGN FIBROID CYSTS), APPENDECTOMY Hx Anesthesia Reactions: No Infectious Disease History: No Infectious Disease History: Denies: Traveled Outside the [place] in Last 30 Days - Family History Known Family History: Positive: Cardiac Disease - Positive heart failure to both parents, Other - Positive breast CA to sister - Social History Alcohol Use: None Hx Substance Use: No Substance Use Type: Reports: None Hx Tobacco Use: Yes Smoking Status (MU): Former Smoker Review of Systems Negative: Fever Positive: Other - trouble breathing Positive: Other - back pain All Other Systems Reviewed And Are Negative: Yes Physical Exam - Summary Physical Exam Summary: VITAL SIGNS: Reviewed. GENERAL: Patient is a well-developed and nourished female who is lying comfortable in the stretcher. Patient is not in any acute respiratory distress. HEAD AND FACE: No signs of trauma. No ecchymosis, hematomas or skull depressions. No sinus tenderness. EYES: PERRLA, EOMI x 2, No injected conjunctiva, no nystagmus. EARS: Hearing grossly intact. Ear canals and tympanic membranes are within normal limits. MOUTH: Oropharynx within normal limits. NECK: Supple, trachea is midline, no adenopathy, no JVD, no carotid bruit, no c- spine tenderness, neck with full ROM. CHEST: Symmetric, no tenderness at palpation LUNGS: Decreased breath sounds bilaterally with mild expiratory wheezes. CVS: Regular rate and rhythm, S1 and S2 present, no murmurs or gallops appreciated. ABDOMEN: Soft, non-tender. No signs of distention. No rebound no guarding, and no masses palpated. Bowel sounds are normal. EXTREMITIES: FROM in all major joints, no edema, no cyanosis or clubbing. NEURO: Alert and oriented x 3. No acute neurological deficits. Speech is normal and follows commands. SKIN: Dry and warm Back: TTP over the right paraspinal area. Triage Information Reviewed: Yes Vital Signs On Initial Exam: Initial Vitals Temp Pulse Resp BP Pulse Ox 98.4 F 66 20 168/104 100 10/20/18 04:51 10/20/18 04:51 10/20/18 04:51 10/20/18 04:51 10/20/18 04:51 Vital Signs Reviewed: Yes Diagnostics - Vital Signs Vital Signs Temp Pulse Resp BP Pulse Ox 10/20/18 05:00 85 98 10/20/18 04:55 87 97 10/20/18 04:54 88 168/104 96 10/20/18 04:51 98.4 F 66 20 168/104 100 - Laboratory Lab Statement: Any lab studies that have been ordered have been reviewed, and results considered in the medical decision making process. Re-Evaluation - Re-Evaluation First Eval Re-Evaluation Time: 05:21 Comment: The pt is refusing pain medications as she does not want to "alter her mind." Second Eval Re-Evaluation Time: 06:15 Change: Unchanged Comment: The patient has agreed to take Percocet. Back Pain Course/Dx - Course Assessment/Plan: This patient is a 82 year old F brought in by EMS to [facility] c/o lower back pain that began 2 days ago. Pt states two days ago she bent over and heard a pop in her back, since then it has been getting worse. The patient rates the pain 10/10 in severity. She denies change in ambulation. She reports she could not turn over in her sleep tonight. No history of back pain. She also c/o trouble breathing. She uses NC at home. In the ED course the patient was given flexeril, toradol, Percocet, and albuterol. The patient improved with these medications. The patient will be signed out to Dr Mistry awaiting CT and dispo. - Diagnoses Provider Diagnoses: Back pain Discharge - Sign-Out/Discharge Documenting (check all that apply): Sign-Out Patient Signing out patient TO: Gerard Mistry - Discharge Plan Condition: Fair Referrals: Yovani Bird MD [Primary Care Provider] - - Attestation Statements Document Initiated by Scribe: Yes Documenting Scribe: Arnav Soares Provider For Whom Sun is Documenting (Include Credential): Pratibha Eldridge MD Scribe Attestation: Arnav Fortune scribed for Pratibha Eldridge MD on 10/20/18 at 0646. Status of Scribe Document: Ready
[2018-10-20] MEDS ORDERED: Cyclobenzaprine TAB* 10 MG PO ONE (05:21)
[2018-10-20] MEDS ORDERED: Ketorolac INJ* 30 MG/ML 1 ML VIAL IM ONE (05:21)
[2018-10-20] MEDS ORDERED: oxyCODONE/Acetamin 5/325 MG* TAB PO ONE (06:26)
--- NOTE | 2018-10-20 07:10 | ED ---
Progress - Progress Note Progress Note: This pt was signed out by Dr. Eldridge at shift change, pending disposition, awaiting lumbar spine CT and thoracic spine CT. Lumbar spine CT, as read by radiologist IMPRESSION: 1. New since the most recent imaging of the thoracic spine acquired November 26, 2015, there is a compression deformity of the T9 vertebral body. Sclerotic change of the vertebral body indicates this is a chronic finding but MRI of the thoracic spine would be required to more confidently determine chronicity of this compression fracture. There is no retropulsion of fragments. 2. Multilevel degenerative changes of the thoracic and lumbar spine described in body the report. Thoracic spine CT, as read by radiologist IMPRESSION: 1. New since the most recent imaging of the thoracic spine acquired November 26, 2015, there is a compression deformity of the T9 vertebral body. Sclerotic change of the vertebral body indicates this is a chronic finding but MRI of the thoracic spine would be required to more confidently determine chronicity of this compression fracture. There is no retropulsion of fragments. 2. Multilevel degenerative changes of the thoracic and lumbar spine described in body the report. Chest XR, as read by radiologist IMPRESSION: No active cardiopulmonary disease is noted. Dr. Mistry has reviewed these reports. EKG at 11:10 Rate: Normal at 80 bpm Rhythm: Sinus rhythm No ST elevations. Q wave in lead III. Normal NM and QTc. Re-Evaluation - Re-Evaluation First Eval Re-Evaluation Time: 09:43 Change: Improved Comment: I reviewed the CT results with the pt. Second Eval Re-Evaluation Time: 10:57 Comment: Pt will be discharge home with follow up from PCP. Third Eval Re-Evaluation Time: 11:49 Change: Worse Comment: Pt was ambulated to the bathroom and pt became SOB. Her oxygen saturation was noted to decrease while already on 2L of oxygen. Course/Dx - Course Course Of Treatment: This patient was signed out by Dr. Eldridge at shift change. He reports that the patient is a 89-year-old female who presented to the emergency room with back pain. He ordered CT of the lumbar and thoracic spine and he reports if negative the patient can be discharged home with follow-up from PCP. IMPRESSION: 1. New since the most recent imaging of the thoracic spine acquired November 26, 2015, there is a compression deformity of the T9 vertebral body. Sclerotic change of the vertebral body indicates this is a chronic finding but MRI of the thoracic spine would be required to more confidently determine chronicity of this compression fracture. There is no retropulsion of fragments. 2. Multilevel degenerative changes of the thoracic and lumbar spine described in body the report. In the ED course the patient has remained stable. The pain is only 1-2 out of 10. She is able to ambulate with no difficulty. Therefore as recommended by Dr. Eldridge the patient will be discharged home with follow-up from her primary care physician. The patient will be given a prescription for Flexeril for pain. I discussed all the findings and test results with the patient. Patient was instructed to return to the emergency room immediately if any of the symptoms return or worsens. Plan of care was discussed with the patient, and she understands and agrees. All questions were answered at patient satisfaction. There were no further complaints or concerns. Lung exam before discharge: CTA B/L. Good air exchange. No wheezing or crackles heard. CVS: S1 and S2 present. No murmurs appreciated. Patient is alert and oriented x 3. Patient is hemodynamically stable. Patient will be discharged home with follow up from PCP in the next 2-3 days. Before the patient was discharged the nurse reports that the patient is getting to be more short of breath. She has history of COPD and she is on home oxygen 2 liters via nasal cannula. However the patient is saturating about 82- 83% with oxygen. We increased the oxygen to 4 liters via nasal cannula and symptoms have slightly improved. On reexamination of the lungs the patient has decreased breath sounds, no wheezing. Therefore the patient was given a DuoNeb and Solu-Medrol. Blood work without any significant abnormality except for sodium 131, carbon dioxide of 37, chloride of 92. Chest x-ray impression: No acute pathology. In the ED course the patient was given DuoNeb's and Solu- Medrol. The patient is medically much better. On reexamination the patient still has lungs with decreased breath sounds. Therefore because of the COPD exacerbation I discussed the case with Dr. Grove, hospitalist, who accepted the patient for admission. Patient is alert and oriented x 3. Patient is hemodynamically stable. - Diagnoses Provider Diagnoses: Back pain, COPD exacerbation - Provider Notifications Discussed Care Of Patient With: Calvin Grove - hospitalist Time Discussed With Above Provider: 12:17 Instructed by Provider To: Admit As Inpatient Discharge - Sign-Out/Discharge Documenting (check all that apply): Patient Departure - Admit to [facility], Receiving Sign-Out [facility] Plan Condition: Stable Disposition: ADMITTED TO [facility] - Attestation Statements Document Initiated by Scribe: Yes Documenting Scribe: Emmy Tidwell Provider For Whom Scribe is Documenting (Include Credential): Gerard Mistry MD Scribe Attestation: Emmy Fortune, scribed for Gerard Mistry MD on 10/21/18 at 0716. Status of Scribe Document: Ready
[2018-10-20] MEDS ORDERED: Albuterol/Ipratropium NEB.SOL* Albuterol 2.5 MG/Ipratropium 0.5 MG 3 ML INH PRN (10:56)
[2018-10-20] MEDS ORDERED: methylPREDNISolone 125 MG* 2 ML VIAL IV ONE (11:02)
[2018-10-20 11:26] LABS: ABS Basophils 0.1 10^3/ul (0-0.2); ABS Eosinophils 0.1 10^3/ul (0-0.6); ABS Lymphocytes 0.9 10^3/ul (1.0-4.8); ABS Monocytes 0.7 10^3/ul (0-0.8); ABS Neutrophils 6.2 10^3/ul (1.5-7.7); ABS Nucleated RBC 0 10^3/ul; Eosinophil % 1.4 %; Hematocrit 35 % (35-47); Hemoglobin 11.8 g/dl (12.0-16.0); Lymphocyte % 10.7 %; Mean Corpuscular HGB Conc 34 g/dl (31-36); Mean Corpuscular Hemoglobin 30 pg (27-31); Mean Corpuscular Volume 89 fL (80-97); Mean Platelet Volume 7.2 fL (7.4-10.4); Nucleated Red Blood Cells % 0.1; Platelet Count 252 10^3/ul (150-450); Red Blood Count 3.95 10^6/ul (4.00-5.40); Red Cell Distribution Width 14 % (10.5-15)
[2018-10-20 11:58] LABS: EGFR Non-African American 145.2 (>60)
[2018-10-20] MEDS ORDERED: ALPRAZolam TAB* 0.25 MG PO ONE (14:38)
[2018-10-20] MEDS ORDERED: Al Hydrox/Mg Hydrox/Simet LIQ* 30 ML UDC PO PRN (15:04)
[2018-10-20] MEDS ORDERED: Acetaminophen TAB* 325 MG PO PRN (15:04)
[2018-10-20] MEDS ORDERED: guaiFENesin ER TAB 600 MG PO PRN (15:08)
[2018-10-20] MEDS ORDERED: ALPRAZolam TAB* 0.25 MG PO PRN (15:08)
[2018-10-20] MEDS ORDERED: Polyethylene Glycol 3350* 17 GM PACKET PO PRN (15:13)
[2018-10-20] MEDS: Azithromycin TAB* 250 MG PO SCH (15:27)
[2018-10-20] MEDS ORDERED: methylPREDNISolone SOD 40 MG* 1 ML VIAL IV SCH (21:00)
[2018-10-20] MEDS: Heparin VIAL(*) 5000 UNITS/ML VIAL (FIVE THOUSAND) SUBCUT SCH (21:53)
[2018-10-20] MEDS: ALPRAZolam TAB* 0.25 MG PO PRN (21:54)
[2018-10-20] MEDS: oxyCODONE/Acetamin 5/325 MG* TAB PO PRN (21:55)
--- NOTE | 2018-10-20 22:43 | HP ---
CC: Dr. Bird* HISTORY AND PHYSICAL: DATE OF ADMISSION: 10/20/18 PROVIDER: Brittanie Parikh NP PRIMARY CARE PROVIDER: Dr. Bird. ATTENDING PHYSICIAN WHILE IN THE HOSPITAL: Dr. Calvin Grove * (dictated by Brittanie Parikh NP). CHIEF COMPLAINT: 1. Shortness of breath. 2. Back pain. HISTORY OF PRESENT ILLNESS: Ms. Gomez is an 82-year-old female with a past medical history significant for aortic stenosis, COPD, anxiety, who presented to the emergency room with a complaint of increased shortness of breath and back pain. The patient reports that she bent over 3 to 4 days ago and felt a pop in her back and since then she has been experiencing back pain that has progressively worsened in her mid back. She also reports increased congestion, mild cough, and increased shortness of breath. She does report that her doctor , Dr. Bird, placed her on azithromycin 3 days ago for her congestion that she had for 1 to 2 weeks. She denies any fever. Denies any increased swelling. Does reports occasional mild cough. Denies any hemoptysis. Denies nausea or vomiting. Denies any diarrhea. Does report abdominal pain intermittent. She does report constipation, last BM was 4 days ago. Denies hematuria or dysuria. Denies urinary frequency or urgency, focal weakness or sensory loss. Denies any dysphagia. Denies any visual changes. She does report back pain for 3 to 4 days, mid thoracic region. Denies any rashes or lesions. Does report increased anxiety, for which she reports she takes Xanax 4 times a day at home. Due to the patient's increased shortness of breath and desaturation in the emergency room, on 2 L oxygen when ambulating, her sats ranged between 80 to 82 , we were asked to see and evaluate her for admission. PAST MEDICAL HISTORY: Significant for: 1. Aortic stenosis. 2. COPD. 3. Anxiety. PAST SURGICAL HISTORY: 1. Breast lumpectomy, which was benign. 2. Hysterectomy. 3. Tonsillectomy. 4. . HOME MEDICATIONS: 1. Prednisone 5 mg p.o. daily. 2. Ketoconazole 1 application b.i.d. p.r.n. 3. Azithromycin 250 mg p.o. daily. 4. Albuterol powder 2 puffs 4 times a day p.r.n. shortness of breath. 5. Alprazolam 0.25 p.o. t.i.d. to 4 times a day p.r.n. anxiety. 6. Refresh Liquigel 1 drop to both eyes as needed. 7. DuoNeb 2.5/0.5 mg 1 neb b.i.d. as needed for shortness of breath. 8. Guaifenesin/Mucinex 600 mg p.o. b.i.d. p.r.n. 9. Loratadine 10 mg p.o. daily. 10. Docusate 1 cap p.o. daily. 11. Zofran 4 mg p.o. q.8 hours as needed for nausea. 12. Omeprazole 20 mg p.o. daily. 13. Singulair 10 mg p.o. daily. 14. Ferrous gluconate 1 tab p.o. daily. 15. Flexeril 10 mg p.o. t.i.d. p.r.n. ALLERGIES TO MEDICATIONS: Allergy to CODEINE causes vomiting, BENADRYL, HYDROCODONE, PROPOXYPHENE, and TRAMADOL, which cause vomiting. FAMILY HISTORY: Mother with a history of stroke, sister with diabetes, grandmother with unknown type of cancer, sister with breast cancer. SOCIAL HISTORY: The patient reports that she quit smoking cigarettes approximately 14 years ago. Prior to that, she smoked a pack a day for 44 years. She denies any alcohol or illicit drug use. She is retired. She lives with her niece. She is a full code. Surrogate decision maker in the event she is unable to maker her own decisions is her son, Walter Hdez. REVIEW OF SYSTEMS: There was no documented fever. There has been no significant loss of appetite. She does report chest pain with deep breath and cough. Denies any edema. She does report a mild cough. Denies any hemoptysis , just reported shortness of breath and congestion. Denies any nausea, vomiting or diarrhea. Does report abdominal pain with constipation, last BM was 4 days ago. Denies any hematuria or dysuria. Denies any focal weakness or sensory loss. Denies any visual complaints. Denies any dysphagia. She does report mid thoracic back pain for the past 3 to 4 days. Denies any rashes or lesions. Denies any psychosis. Does report increased anxiety. PHYSICAL EXAMINATION GENERAL: At this time, Ms. Gomez is an 82-year-old female. She appears moderately short of breath sitting on the stretcher in the emergency room. Her color is pink. VITAL SIGNS: Blood pressure 161/81, heart rate was 84, respirations 22, O2 saturation on 3 L is 97%, temperature was 98.4. HEENT: Head is atraumatic, normocephalic. Eyes: EOMs are intact. Sclerae anicteric and not pale. Oral mucosa appear to be moist. No oropharyngeal erythema. NECK: Supple. LUNGS: Diminished with expiratory wheezes. No rales or rhonchi. CARDIAC: S1, S2. Regular rate and rhythm. She does have a murmur. No rubs or gallops. ABDOMEN: Soft and nontender. Bowel sounds are present x4. BACK: She does have mid thoracic back tenderness to palpation. EXTREMITIES: Pulses are +2 bilaterally. She is able to move all 4 extremities with 5/5 strength. NEUROLOGIC: She is awake, alert, and oriented x3. Hand head of insight are equal. Tongue is midline. Speech is clear. No gross focal deficits. SKIN: Intact. DIAGNOSTIC STUDIES/LAB DATA: WBCs are 8.0, RBCs 3.95, hemoglobin 11.8, hematocrit is 35, platelet count 252. Sodium 131, potassium 4.5, chloride 92, carbon dioxide was 37, anion gap was 2, BUN was 11, creatinine 0.42, glucose was 91, lactic acid 0.8. ASTs were 27, ALTs were 20. Troponin was 0.00. Based on recent imaging of 05/26/16, there is a compression deformity on T9 vertebral body. Sclerotic changes of the vertebral body indicate that this is a chronic finding, but MRI of the thoracic spine will be required for more confident determination of chronicity of the compression fracture. There is no retropulsion of fragments. Multilevel degenerative disc changes of the thoracic and lumbar spine as described above. Thoracic spine CT shows new or chronic appearing deformity in T9 vertebral body. Electrocardiogram shows sinus rhythm at a rate of 80. Chest x-ray, no active cardiopulmonary disease. ASSESSMENT AND PLAN: Ms. Gomez is an 82-year-old female who presented to the emergency room today with complaints of shortness of breath and upper mid back pain. We were asked to see and evaluate her due to hypoxia with ambulation, desatting to 80 to 82% on 3 L nasal cannula. She will be admitted inpatient for : 1. Shortness of breath. I suspect this is related to chronic obstructive pulmonary disease exacerbation as the patient was recently placed on azithromycin by her primary care provider approximately 3 days ago for congestion. She is chronically on prednisone at home at 5 mg. She did receive Solu-Medrol in the emergency room 120 mg and nebulizer treatments. We will continue her DuoNeb and albuterol nebs as prescribed at home. I will give her Solu-Medrol 40 mg p.o. or IV q.12 hours. I will continue her azithromycin 250 mg p.o. daily x2 more does to complete her course of antibiotics. We will continue oxygen support as needed for her shortness of breath. 2. Mid back pain. I suspect this is related to the T9 deformity noted on the CT scan. We will continue with pain management as needed to assist in controlling her pain. 3. Anxiety. We will continue her alprazolam 0.25 mg t.i.d. 4. FEN. She can have heart-healthy, decaf okay diet. 5. DVT prophylaxis. I will place her on heparin subcu. 6. Code status. She is a full code. TIME SPENT: Time spent on this admission was 60 minutes, greater than half that time was spent [id number] with the patient obtaining my history and physical, the other half the time was spent going over my plan of care and implementing my plan of care. I have discussed this with my attending, Dr. Calvin Grove; he is in agreement with my plan. BRITTANIE PARIKH, JIMENA [id number]/[facility] #: [id number] STEFFANY
[2018-10-20] MEDS: Lidocaine PATCH 5%* 1 PATCH TRANSDERM SCH (23:39)
[2018-10-21] MEDS: ALPRAZolam TAB* 0.25 MG PO PRN ×3 (04:09→19:40)
[2018-10-21] MEDS: Heparin VIAL(*) 5000 UNITS/ML VIAL (FIVE THOUSAND) SUBCUT SCH ×3 (04:31→23:05)
[2018-10-21 06:40] LABS: ABS Basophils 0 10^3/ul (0-0.2); ABS Eosinophils 0 10^3/ul (0-0.6); ABS Lymphocytes 0.4 10^3/ul (1.0-4.8); ABS Monocytes 0.3 10^3/ul (0-0.8); ABS Neutrophils 9.3 10^3/ul (1.5-7.7); ABS Nucleated RBC 0 10^3/ul; Eosinophil % 0 %; Hematocrit 34 % (35-47); Hemoglobin 11.4 g/dl (12.0-16.0); Lymphocyte % 4.3 %; Mean Corpuscular HGB Conc 34 g/dl (31-36); Mean Corpuscular Hemoglobin 30 pg (27-31); Mean Corpuscular Volume 88 fL (80-97); Mean Platelet Volume 7.6 fL (7.4-10.4); Nucleated Red Blood Cells % 0; Platelet Count 252 10^3/ul (150-450); Red Blood Count 3.84 10^6/ul (4.00-5.40); Red Cell Distribution Width 14 % (10.5-15)
[2018-10-21 06:55] LABS: EGFR Non-African American 149.3 (>60)
[2018-10-21] MEDS: Docusate CAP* 100 MG PO SCH (08:11)
[2018-10-21] MEDS: Montelukast Sodium TAB* 10 MG PO SCH (08:11)
[2018-10-21] MEDS: Omeprazole CAP* 20 MG PO SCH (08:11)
[2018-10-21] MEDS: Azithromycin TAB* 250 MG PO SCH (08:11)
[2018-10-21] MEDS: Cetirizine* 10 MG TAB PO SCH (08:11)
[2018-10-21] MEDS: predniSONE TAB* 20 MG PO SCH (08:11)
[2018-10-21] MEDS: oxyCODONE/Acetamin 5/325 MG* TAB PO PRN ×2 (08:12→19:39)
[2018-10-21] MEDS: Lidocaine PATCH 5%* 1 PATCH TRANSDERM SCH (08:13)
[2018-10-21] MEDS: Lidocaine Patch REMOVE* 1 NOTE MISC PATCH OFF SCH (11:04)
[2018-10-21] MEDS: Albuterol/Ipratropium NEB.SOL* Albuterol 2.5 MG/Ipratropium 0.5 MG 3 ML INH PRN ×2 (12:22→22:39)
--- NOTE | 2018-10-21 14:26 | PN ---
Subjective Date of Service: 10/21/18 Interval History: HOSPITALIST PROGRESS NOTE Patient seen and examined at bedside. Care reviewed and d/w Fiordaliza Mauro RN. She feels better today but breathing is not back at baseline. Very anxious about her vertebral fracture. Feels very tired and doesn't want to work with PT today. Family History: Unchanged from Admission Social History: Unchanged from Admission Past Medical History: Unchanged from Admission Objective Active Medications: Acetaminophen (Tylenol Tab*) 650 mg PO Q4H PRN PRN Reason: FEVER/PAIN Last Admin: 10/21/18 04:09 Dose: 650 mg Al Hydrox/Mg Hydrox/Simethicone (Maalox Plus*) 30 ml PO Q6H PRN PRN Reason: INDIGESTION Albuterol (Ventolin 2.5 Mg/3 Ml Neb.Maureen*) 2.5 mg INH [id number] AWAKE PRN PRN Reason: sob/wheezing Albuterol/Ipratropium (Duoneb (Albuterol 2.5 Mg/Ipratropium 0.5 Mg)) 1 neb INH BID PRN PRN Reason: SHORTNESS OF BREATH Last Admin: 10/21/18 12:22 Dose: 1 neb Alprazolam (Xanax Tab*) 0.25 mg PO TID PRN PRN Reason: ANXIETY Last Admin: 10/21/18 12:38 Dose: 0.25 mg Cetirizine HCl (Zyrtec*) 10 mg PO DAILY [facility] Last Admin: 10/21/18 08:11 Dose: 10 mg Docusate Sodium (Colace Cap*) 100 mg PO DAILY [facility] Last Admin: 10/21/18 08:11 Dose: 100 mg Guaifenesin (Mucinex*) 600 mg PO BID PRN PRN Reason: CONGESTION Heparin Sodium (Porcine) (Heparin Vial(*)) 5,000 units SUBCUT Q8HR [facility] Last Admin: 10/21/18 12:37 Dose: 5,000 units Lidocaine (Lidoderm 5% Patch*) 1 patch TRANSDERM DAILY [facility] Last Admin: 10/21/18 08:13 Dose: 1 patch Montelukast Sodium (Singulair Tab*) 10 mg PO DAILY [facility] Last Admin: 10/21/18 08:11 Dose: 10 mg Omeprazole (Prilosec Cap*) 20 mg PO DAILY [facility] Last Admin: 10/21/18 08:11 Dose: 20 mg Oxycodone/Acetaminophen (Percocet 5/325 Tab*) 1 tab PO Q8H PRN PRN Reason: PAIN Last Admin: 10/21/18 08:12 Dose: 1 tab Pharmacy Profile Note (Lidocaine Patch Remove*) 1 note PATCH OFF 1100 [facility] Last Admin: 10/21/18 11:04 Dose: Not Given Polyethylene Glycol/Electrolytes (Miralax*) 17 gm PO DAILY PRN PRN Reason: CONSTIPATION Prednisone (Deltasone Tab*) 40 mg PO DAILY [facility] Last Admin: 10/21/18 08:11 Dose: 40 mg Vital Signs - 8 hr 10/21/18 10/21/18 10/21/18 06:41 07:35 08:12 Temperature 97.9 F Pulse Rate 88 Respiratory 18 20 18 Rate Blood Pressure 145/72 (mmHg) O2 Sat by Pulse 97 Oximetry 10/21/18 10/21/18 10/21/18 10:12 11:05 12:25 Temperature 98.0 F Pulse Rate 72 91 Respiratory 19 18 20 Rate Blood Pressure 143/53 (mmHg) O2 Sat by Pulse 98 98 Oximetry 10/21/18 12:38 Temperature Pulse Rate Respiratory 19 Rate Blood Pressure (mmHg) O2 Sat by Pulse Oximetry Oxygen Devices in Use Now: Nasal Cannula Appearance: Elderly frail lady lying in bed in [facility]. Eyes: No Scleral Icterus Ears/Nose/Mouth/Throat: Mucous Membranes Moist Neck: Trachea Midline Respiratory: Symmetrical Chest Expansion and Respiratory Effort, - - BS+ bilaterally diminished with scattered wheezes Cardiovascular: RRR - Normal S1 and S2 Abdominal: NL Sounds; No Tenderness; No Distention Neurological: Alert and Oriented x 3, NL Muscle Strength and Tone Result Diagrams: 10/21/18 05:59 10/21/18 05:59 Assess/Plan/Problems-Billing Assessment: Mrs Gomez is an 82yo F with PMH of COPD, anxiety, aortic stenosis, who presented to ED with c/o back pain and dyspnea, found to have T9 compression fracture and COPD exacerbation. - Patient Problems (1) COPD (chronic obstructive pulmonary disease) Comment: - With exacerbation. - Completed Zithromax. - Continue bronchodilators, steroids, and supplemental O2. (2) Compression fracture Comment: - D/w Neurosurgery - no interventions recommended, no indication for brace. - Continue pain management. - PT consult. (3) Anxiety Comment: - Continue PRN Xanax. (4) DVT prophylaxis Comment: - SQ heparin. (5) Full code status Status and Disposition: Inpatient.
--- NOTE | 2018-10-21 17:50 | CONSULT ---
Consult Consult: Neurosurgery Consult Date of admission: 10/20/18 Date of consult: 10/21/18 Reason for consult:T9 compression fracture Referring provider: Dr. Verma HPI: This is an 82 year old female with past medical history significant for COPD, aortic stenosis and anxiety who presented to [facility] with complaint of severe back pain beginning approximately 4 days ago. She states she was leaning over to access her dresser drawer when she felt a pop in her back and immediately experienced pain. She has since had difficulty ambulating and shifting positions in bed secondary to the pain. When the pain did not improve over a couple of days, she presented to [facility] ED for evaluation. She denies numbness, tingling, weakness and pain in the upper and lower extremities and wrapping around the abdomen or chest. She has had gait instability secondary to the pain. She also reports shortness of breath. Past medical history: 1. COPD 2. Aortic stenosis 3. Anxiety Past surgical history: 1. Mastectomy 2. Hysterectomy 3. Tonsillectomy Home medications: 1. Carboxymethylcellulose Sodium [Refresh Liquigel] 1 drop BOTH EYES BID PRN 05/29 [History Confirmed 10/20/18] 2. Albuterol/Ipratropium NEB.ROBERT* [Duoneb (Albuterol 2.5 MG/Ipratropium 0.5 MG) ] 1 neb INH BID PRN 11/26/15 [History Confirmed 10/20/18] 3. Ondansetron ODT TAB* [Zofran 4 MG Odt TAB*] 4 mg PO Q8H PRN 11/26/15 [ History Confirmed 10/20/18] 4. ALPRAZolam TAB* [Xanax TAB*] 0.25 mg PO TID PRN 01/28/17 [History Confirmed 10/20/18] 5. Albuterol inh POWDER (NF) [Proair Respiclick] 2 puff INH QID PRN 01/28/17 [ History Confirmed 10/20/18] 6. Montelukast Sodium TAB* [Singulair 10 MG TAB*] 10 mg PO DAILY 01/28/17 [ History Confirmed 10/20/18] 7. Omeprazole CAP* [Prilosec CAP* 20 MG] 20 mg PO DAILY 01/28/17 [History Confirmed 10/20/18] 8. guaiFENesin ER TAB [Mucinex*] 600 mg PO BID PRN 01/28/17 [History Confirmed 10/20/18] 9. Azithromycin 250 mg PO DAILY 10/20/18 [History Confirmed 10/20/18] 10. Cyclobenzaprine TAB* [Flexeril 10 MG TAB*] 10 mg PO TID PRN #12 tab [Rx] 11. Docusate Sodium [Col-Rite] 1 cap PO DAILY 10/20/18 [History Confirmed ] 12. Ferrous Gluconate [Fergon] 1 tab PO DAILY 10/20/18 [History Confirmed ] 13. Ketoconazole 1 applic TOPICAL BID PRN 10/20/18 [History Confirmed 10/20/18] 14. Loratadine 10 mg PO DAILY 10/20/18 [History Confirmed 10/20/18] 15. predniSONE [Prednisone 5 MG TAB] 5 mg PO DAILY 10/20/18 [History Confirmed 10/20/18] Allergies: 1. Codeine 2. Diphenhydramine 3. Hydrocodone 4. Propoxyphene 5. Tramadol Social history: This patient lives at home with her niece. ROS: Full ROS completed. Pertinent findings stated in HPI and all others negative. Physical exam: Vital Signs: Temp Pulse Resp BP Pulse Ox 98.6 F 92 20 170/71 100 10/21/18 15:24 10/21/18 15:24 10/21/18 19:47 10/21/18 15:24 10/21/18 15:24 General: Alert and laying comfortably in bed. NAD. CV: Radial and pedal pulses 2+ and equal. Lungs: Breathing is nonlabored. Oxygen via NC. Abdomen: Soft, nontender and nondistended. Normoactive bowel sounds. Neuro: Speech is clear. Strength in upper and lower extremities 5/5. Sensation intact throughout. Extremities: No edema. Imagin. CT thoracic spine on 10/20/18 shows new T9 compression fracture. Assessment and plan: This patient presents with severe mid back pain related to T9 compression fracture evidenced on CT thoracic spine. Neuro intact. Surgical intervention is not recommended. She will not likely benefit from TLSO brace. We discussed expected course of healing and recovery. Pain management, physical therapy and possible rehab prior to returning home is recommended.
[2018-10-22] MEDS: ALPRAZolam TAB* 0.25 MG PO PRN ×2 (04:05→20:15)
[2018-10-22] MEDS: Heparin VIAL(*) 5000 UNITS/ML VIAL (FIVE THOUSAND) SUBCUT SCH ×3 (05:20→20:53)
[2018-10-22] MEDS: oxyCODONE/Acetamin 5/325 MG* TAB PO PRN (06:13)
[2018-10-22] MEDS: Cetirizine* 10 MG TAB PO SCH (09:00)
[2018-10-22] MEDS: Montelukast Sodium TAB* 10 MG PO SCH (09:00)
[2018-10-22] MEDS: Omeprazole CAP* 20 MG PO SCH (09:00)
[2018-10-22] MEDS: predniSONE TAB* 20 MG PO SCH (09:00)
[2018-10-22] MEDS: Docusate CAP* 100 MG PO SCH (09:00)
[2018-10-22] MEDS: Lidocaine PATCH 5%* 1 PATCH TRANSDERM SCH (09:00)
[2018-10-22] MEDS: Lidocaine Patch REMOVE* 1 NOTE MISC PATCH OFF SCH (09:05)
[2018-10-22] MEDS ORDERED: oxyCODONE/Acetamin 5/325 MG* TAB PO ONE (09:36)
[2018-10-22] MEDS ORDERED: ALPRAZolam TAB* 0.25 MG PO ONE (09:36)
--- NOTE | 2018-10-22 13:51 | PN ---
Subjective Date of Service: 10/22/18 Interval History: HOSPITALIST PROGRESS NOTE Patient seen and examined at bedside. Care reviewed and d/w Franci Velasquez RN. She c/o worse mid back pain compromising her breathing this AM. No chest pain or palpitations. Very anxious about her situation. Family History: Unchanged from Admission Social History: Unchanged from Admission Past Medical History: Unchanged from Admission Objective Active Medications: Acetaminophen (Tylenol Tab*) 650 mg PO Q4H PRN PRN Reason: FEVER/PAIN Last Admin: 10/21/18 04:09 Dose: 650 mg Al Hydrox/Mg Hydrox/Simethicone (Maalox Plus*) 30 ml PO Q6H PRN PRN Reason: INDIGESTION Albuterol (Ventolin 2.5 Mg/3 Ml Neb.Maureen*) 2.5 mg INH [id number] AWAKE PRN PRN Reason: sob/wheezing Albuterol/Ipratropium (Duoneb (Albuterol 2.5 Mg/Ipratropium 0.5 Mg)) 1 neb INH BID PRN PRN Reason: SHORTNESS OF BREATH Last Admin: 10/21/18 22:39 Dose: 1 neb Alprazolam (Xanax Tab*) 0.25 mg PO TID PRN PRN Reason: ANXIETY Last Admin: 10/22/18 04:05 Dose: 0.25 mg Cetirizine HCl (Zyrtec*) 10 mg PO DAILY [facility] Last Admin: 10/22/18 09:00 Dose: 10 mg Docusate Sodium (Colace Cap*) 100 mg PO DAILY [facility] Last Admin: 10/22/18 09:00 Dose: 100 mg Guaifenesin (Mucinex*) 600 mg PO BID PRN PRN Reason: CONGESTION Heparin Sodium (Porcine) (Heparin Vial(*)) 5,000 units SUBCUT Q8HR [facility] Last Admin: 10/22/18 05:20 Dose: 5,000 units Lidocaine (Lidoderm 5% Patch*) 1 patch TRANSDERM DAILY [facility] Last Admin: 10/22/18 09:00 Dose: 1 patch Montelukast Sodium (Singulair Tab*) 10 mg PO DAILY [facility] Last Admin: 10/22/18 09:00 Dose: 10 mg Omeprazole (Prilosec Cap*) 20 mg PO DAILY [facility] Last Admin: 10/22/18 09:00 Dose: 20 mg Oxycodone/Acetaminophen (Percocet 5/325 Tab*) 1 tab PO Q8H PRN PRN Reason: PAIN Last Admin: 10/22/18 06:13 Dose: 1 tab Pharmacy Profile Note (Lidocaine Patch Remove*) 1 note PATCH OFF 1100 [facility] Last Admin: 10/22/18 09:05 Dose: Not Given Polyethylene Glycol/Electrolytes (Miralax*) 17 gm PO DAILY PRN PRN Reason: CONSTIPATION Last Admin: 10/21/18 19:45 Dose: 17 gm Prednisone (Deltasone Tab*) 40 mg PO DAILY [facility] Last Admin: 10/22/18 09:00 Dose: 40 mg Vital Signs - 8 hr 10/22/18 10/22/18 10/22/18 06:13 07:42 08:00 Temperature 98.1 F Pulse Rate 75 73 Respiratory 18 18 14 Rate Blood Pressure 151/72 (mmHg) O2 Sat by Pulse 100 95 Oximetry 10/22/18 10/22/18 10/22/18 09:20 10:00 10:23 Temperature Pulse Rate Respiratory 20 24 24 Rate Blood Pressure (mmHg) O2 Sat by Pulse Oximetry 10/22/18 10/22/18 10/22/18 11:05 12:19 12:20 Temperature 98.0 F Pulse Rate 102 Respiratory 17 16 16 Rate Blood Pressure 136/73 (mmHg) O2 Sat by Pulse 97 Oximetry Oxygen Devices in Use Now: Nasal Cannula Appearance: Elderly lady lying in bed in [facility], very anxious. Eyes: No Scleral Icterus Ears/Nose/Mouth/Throat: Mucous Membranes Moist Neck: Trachea Midline Respiratory: Symmetrical Chest Expansion and Respiratory Effort, - - BS+ bilaterally diminished, no added sounds Cardiovascular: RRR - Normal S1 and S2 Neurological: Alert and Oriented x 3, NL Muscle Strength and Tone Result Diagrams: 10/21/18 05:59 10/21/18 05:59 Assess/Plan/Problems-Billing Assessment: Mrs Gomez is an 82yo F with PMH of COPD, anxiety, aortic stenosis, who presented to ED with c/o back pain and dyspnea, found to have T9 compression fracture and COPD exacerbation. - Patient Problems (1) COPD (chronic obstructive pulmonary disease) Comment: - With exacerbation. - Completed Zithromax. - Continue bronchodilators, steroids, and supplemental O2. - Very poor reserve, pain and anxiety amplify symptoms. (2) V-tach Comment: - Potassium is high normal, check magnesium. - Check echocardiogram. (3) Compression fracture Comment: - D/w Neurosurgery - no interventions recommended, no indication for brace. - Continue pain management. - Continue PT. (4) Anxiety Comment: - Continue PRN Xanax. (5) DVT prophylaxis Comment: - SQ heparin. (6) Full code status Status and Disposition: Inpatient. Will request PMRU consult.
[2018-10-22] MEDS ORDERED: Magnesium Hydroxide LIQ* 30 ML UDC PO PRN (19:28)
[2018-10-22] MEDS ORDERED: Bisacodyl SUPP* 10 MG SUPP PR PRN (19:28)
--- NOTE | 2018-10-22 19:42 | ECHO ---
Patient: ELIZABETH HOGAN [facility] Rec#: [id number] : 1935 Date: 10/22/2018 Age: 82y Height: 145 cm / 57.1 in Weight: 44.4 kg / 97.9 lbs Sex: F BSA: 1.33 Room#: [facility] Admit Date#: 10/20/2018 Type: Inpatient Referring: Swetha Betancourt MD Reading: Erna Alexander MD Promotions Director: Yovana Singh RDCS CC: Terence Francisco MD CC: Yovani Bird MD Transthoracic Echocardiogram Indication: Ventricular tachycardia, shortness of breath BP: 136/73 HR: 90 Rhythm: NSR with PACs Findings History: COPD, , former smoker. Technical Comments: The study quality is fair. Completed at 1545. Left Ventricle: The left ventricular chamber size is decreased. Mild concentric left ventricular hypertrophy is observed. There is a prominent septal knuckle. Global left ventricular wall motion and contractility are within normal limits. There is normal left ventricular systolic function. The estimated ejection fraction is 60-65%. Abnormal left ventricular diastolic function is observed. Abnormal left ventricular diastolic filling is observed, consistent with impaired relaxation. Left Atrium: The left atrium is mildly dilated. Right Ventricle: Moderator Band present. The right ventricular cavity size is normal. The right ventricular global systolic function is normal. Right Atrium: The right atrial cavity size is normal. Aortic Valve: The aortic valve is trileaflet. Moderate aortic leaflet calcification is visualized. Systolic excursion of the aortic valve cusps is reduced. There is a trace of aortic regurgitation. There is moderate to severe aortic stenosis. The mean gradient of the aortic valve is 15 mmHg. The aortic valve area, by peak velocities, is calculated at 0.9 cm2. The aortic valve area, by VTI's, is calculated at 1 cm2. Mitral Valve: There is mitral annular calcification. The mitral valve leaflets are mildly thickened. There is a trace of mitral regurgitation. There is no evidence of mitral stenosis. Tricuspid Valve: The tricuspid valve leaflets are normal. There is trace to mild tricuspid regurgitation. The right ventricular systolic pressure is estimated at 32 mmHg. No pulmonary hypertension is noted. There is no tricuspid stenosis. Pulmonic Valve: The pulmonic valve appears normal. There is a trace pulmonic regurgitation. There is no pulmonic stenosis. Pericardium: There is no significant pericardial effusion. Aorta: There is no dilatation of the ascending aorta. The aortic arch is not well visualized. The aortic root is normal in size. Pulmonary Artery: The main pulmonary artery appears normal. Venous: The inferior vena cava appears normal in size. There is a greater than 50% respiratory change in the inferior vena cava dimension. Conclusions Mild concentric left ventricular hypertrophy and small LV chamber diameter. Global left ventricular wall motion and contractility are within normal limits. The estimated ejection fraction is 60-65%. Abnormal left ventricular diastolic filling is observed, consistent with impaired relaxation. The right ventricular global systolic function is normal. There is moderate to severe aortic stenosis. -The mean gradient of the aortic valve is 15 mmHg. -The aortic valve area, by VTI's, is calculated at 1 cm2. -DI 0.29-0.31. There is mitral annular calcification. There is a trace of mitral regurgitation. There is trace to mild tricuspid regurgitation. The right ventricular systolic pressure is estimated at 32 mmHg (normal). Compared with recent echo of 09/01/18, ventricular function is stable. is stable, prior BETTINA 1.1 cm2, prior mean gradient 26 mmHg. MAC and MV functon is stable, TR is stable, PA pressure previously 41 mmHg. Measurements Name Value Normal Range RVIDd (AP) 2D 2.7 cm (0.9 - 2.6) RVDdMajor (2D) 4.2 cm (2.2 - 4.4) RAd ISD 4CH 4.4 cm (3.4 - 4.9) RA (A4C)W 3.6 cm (2.9 - 4.6) IVSd (2D) 1.1 cm (0.6 - 1) LVPWd (2D) 1.1 cm (0.6 - 1) LVIDd (2D) 2.6 cm (3.6 - 5.4) LVIDs (2D) 1.6 cm - LV FS (2D) 37 % (25 - 45) Aortic Annulus 1.5 cm (1.4 - 2.6) Ao root diameter (2D) 3 cm (2.1 - 3.5) Ascending Ao 3.2 cm (2.1 - 3.4) LA dimension (AP) 2D 3 cm (2.3 - 3.8) LAd ISD 4CH 4.4 cm (2.9 - 5.3) LA ISD 4CH W 4.3 cm (2.5 - 4.5) Name Value Normal Range LA ESV BP (A/L) index 39 ml/m2 - Name Value Normal Range MV E-wave Vmax 0.9 m/sec - MV deceleration time 176 msec - MV A-wave Vmax 1.23 m/sec - MV E:A ratio 0.7 ratio - LV septal e' Vmax 0.08 m/sec - LV lateral e' Vmax 0.07 m/sec - LV E:e' septal ratio 11.3 ratio - LV E:e' lateral ratio 12.9 ratio - Name Value Normal Range AV Vmax 3.1 m/sec - AV VTI 70 cm - AV peak gradient 39 mmHg - AV mean gradient 15 mmHg - LVOT diameter 2 cm - LVOT Vmax 0.9 m/sec - LVOT VTI 22 cm - LVOT peak gradient 3 mmHg - LVOT mean gradient 2 mmHg - DOI (VTI) 0.3 ratio - BETTINA (continuity Vmax) 0.9 cm2 - BETTINA (continuity VTI) 1 cm2 - Name Value Normal Range TR Vmax 2.7 m/sec - TR peak gradient 29 mmHg - RAP 3 mmHg - RVSP 32 mmHg - IVC diameter 1.4 cm - Name Value Normal Range PV Vmax 1.3 m/sec - PV peak gradient 6 mmHg -
[2018-10-22] MEDS: Albuterol 2.5 MG/3 ML NEB.SOL* (0.083%) INH PRN (20:30)
[2018-10-22] MEDS: Bisacodyl EC TAB* 5 MG PO SCH (20:52)
[2018-10-23] MEDS: oxyCODONE/Acetamin 5/325 MG* TAB PO PRN ×3 (00:22→23:04)
[2018-10-23] MEDS: Heparin VIAL(*) 5000 UNITS/ML VIAL (FIVE THOUSAND) SUBCUT SCH ×3 (05:37→21:06)
[2018-10-23 06:33] LABS: EGFR Non-African American 127.5 (>60)
[2018-10-23] MEDS: Omeprazole CAP* 20 MG PO SCH (07:27)
[2018-10-23] MEDS: ALPRAZolam TAB* 0.25 MG PO PRN ×3 (07:27→23:08)
[2018-10-23] MEDS: predniSONE TAB* 20 MG PO SCH (07:27)
[2018-10-23] MEDS: Montelukast Sodium TAB* 10 MG PO SCH (07:27)
[2018-10-23] MEDS: Docusate CAP* 100 MG PO SCH (07:27)
[2018-10-23] MEDS: Cetirizine* 10 MG TAB PO SCH (07:27)
[2018-10-23] MEDS: Lidocaine PATCH 5%* 1 PATCH TRANSDERM SCH (07:29)
[2018-10-23] MEDS: Albuterol/Ipratropium NEB.SOL* Albuterol 2.5 MG/Ipratropium 0.5 MG 3 ML INH PRN (10:54)
--- NOTE | 2018-10-23 14:08 | PN ---
Subjective Date of Service: 10/23/18 Interval History: Ms. Gomez is feeling better today, but still feels poorly overall. She has been up ambulating in the hallway once this morning, and that was the first time she had been up since being in the hospital. She reported significant SOB with exertion. She reports occasional episodes of SOB at rest. She does not feel as though she is ready to go home. She is requesting a back brace as she feels this will help with her pain. She does not have any pain on my exam and feels like the lidocaine patch is working well to manage her pain. She denies CP , diarrhea. Occasional nausea, but no vomiting. Poor appetite. Had some dizziness when sitting at the edge of the bed today, but none while ambulating. Family History: Unchanged from Admission Social History: Unchanged from Admission Past Medical History: Unchanged from Admission Objective Active Medications: Acetaminophen (Tylenol Tab*) 650 mg PO Q4H PRN FEVER/PAIN Al Hydrox/Mg Hydrox/Simethicone (Maalox Plus*) 30 ml PO Q6H PRN INDIGESTION Albuterol (Ventolin 2.5 Mg/3 Ml Neb.Maureen*) 2.5 mg INH [id number] AWAKE PRN sob/wheezing Albuterol/Ipratropium (Duoneb (Albuterol 2.5 Mg/Ipratropium 0.5 Mg)) 1 neb INH BID PRN SHORTNESS OF BREATH Alprazolam (Xanax Tab*) 0.25 mg PO TID PRN ANXIETY Bisacodyl (Dulcolax Ec Tab*) 5 mg PO BEDTIME SANJU Bisacodyl (Dulcolax Supp*) 10 mg MN DAILY PRN CONSTIPATION Cetirizine HCl (Zyrtec*) 10 mg PO DAILY SANJU Docusate Sodium (Colace Cap*) 100 mg PO DAILY SANJU Guaifenesin (Mucinex*) 600 mg PO BID PRN CONGESTION Heparin Sodium (Porcine) (Heparin Vial(*)) 5,000 units SUBCUT Q8HR SANJU Lidocaine (Lidoderm 5% Patch*) 1 patch TRANSDERM DAILY SANJU Magnesium Hydroxide (Milk Of Magnesia Liq*) 30 ml PO Q6H PRN CONSTIPATION Montelukast Sodium (Singulair Tab*) 10 mg PO DAILY SANJU Omeprazole (Prilosec Cap*) 20 mg PO DAILY SANJU Oxycodone/Acetaminophen (Percocet 5/325 Tab*) 1 tab PO Q8H PRN PAIN Pharmacy Profile Note (Lidocaine Patch Remove*) 1 note PATCH OFF [address] [facility] Polyethylene Glycol/Electrolytes (Miralax*) 17 gm PO DAILY PRN CONSTIPATION Prednisone (Deltasone Tab*) 40 mg PO DAILY [facility] Vital Signs - 8 hr 10/23/18 10/23/18 10/23/18 07:27 07:51 07:57 Temperature 98.1 F Pulse Rate 82 Respiratory 20 16 20 Rate Blood Pressure 161/64 (mmHg) O2 Sat by Pulse 100 Oximetry 10/23/18 10/23/18 10:54 10:55 Temperature 98.0 F Pulse Rate 107 109 Respiratory 22 20 Rate Blood Pressure 176/72 (mmHg) O2 Sat by Pulse 96 96 Oximetry Oxygen Devices in Use Now: Nasal Cannula - 3L Appearance: Elderly female sitting in bed in NAD; Anxious Eyes: No Scleral Icterus Ears/Nose/Mouth/Throat: Mucous Membranes Moist Neck: NL Appearance and Movements; NL JVP, Trachea Midline Respiratory: Symmetrical Chest Expansion and Respiratory Effort, Clear to Auscultation, - - Diminished throughout Cardiovascular: RRR, - - Grade III/ systolic murmur Abdominal: NL Sounds; No Tenderness; No Distention Extremities: No Edema, No Clubbing, Cyanosis Skin: No Rash or Ulcers Neurological: Alert and Oriented x 3, NL Sensation Lines/Tubes/Other Access: Clean, Dry and Intact Peripheral IV Nutrition: Taking PO's Result Diagrams: 10/21/18 05:59 10/23/18 06:04 Assess/Plan/Problems-Billing Assessment: Mrs. Gomez is an 82yo F with PMH of COPD, anxiety, aortic stenosis, who presented to ED with c/o back pain and dyspnea, found to have T9 compression fracture and COPD exacerbation. - Patient Problems (1) COPD exacerbation Current Visit: Yes Status: Acute Code(s): J44.1 - CHRONIC OBSTRUCTIVE PULMONARY DISEASE W (ACUTE) EXACERBATION SNOMED Code(s): 163304594 Comment: - Poor reserve; pain and anxiety amplify symptoms - Increased oxygen requirements (baseline is 2L) - Completed course of azithromycin which was started as an outpt - Continue nebs, steroids (2) Compression fracture Current Visit: Yes Status: Acute Code(s): RJF0205 - SNOMED Code(s): 728450029 Comment: - New T9 fracture noted on CT on admission - Appreciate neurosurgery consult; no interventions recommended and no indication for brace - Continue PT - Continue perocet and lidocaine patch (3) V-tach Current Visit: Yes Status: Acute Code(s): I47.2 - VENTRICULAR TACHYCARDIA SNOMED Code(s): 69563935 Comment: - 5 beats on 10/22; no further episodes - Electrolytes normal - TTE shows no changes since last echo in August (4) Aortic stenosis Current Visit: Yes Status: Acute Code(s): I35.0 - NONRHEUMATIC AORTIC (VALVE ) STENOSIS SNOMED Code(s): 59714006 Comment: - Echo shows is stable from last echo in August (5) Anxiety Current Visit: Yes Status: Acute Code(s): F41.9 - ANXIETY DISORDER, UNSPECIFIED SNOMED Code(s): 72996562 Comment: - Continue PRN Xanax (6) DVT prophylaxis Current Visit: Yes Status: Acute Code(s): VAK6293 - SNOMED Code(s): 147987560 Comment: - SQ heparin (7) Full code status Current Visit: Yes Status: Acute Code(s): Z78.9 - OTHER SPECIFIED HEALTH STATUS SNOMED Code(s): 246793292 Status and Disposition: Inpatient. Anticipate d/c home when medically stable. Attending: Sandra Nava
[2018-10-23] MEDS: Bisacodyl EC TAB* 5 MG PO SCH (21:06)
[2018-10-23] MEDS: Lidocaine Patch REMOVE* 1 NOTE MISC PATCH OFF SCH (21:16)
[2018-10-24] MEDS: Albuterol 2.5 MG/3 ML NEB.SOL* (0.083%) INH PRN (04:30)
[2018-10-24] MEDS: Heparin VIAL(*) 5000 UNITS/ML VIAL (FIVE THOUSAND) SUBCUT SCH ×3 (05:03→20:09)
[2018-10-24 06:44] LABS: EGFR Non-African American 124.4 (>60)
[2018-10-24] MEDS: oxyCODONE/Acetamin 5/325 MG* TAB PO PRN ×2 (07:28→20:08)
[2018-10-24] MEDS: Cetirizine* 10 MG TAB PO SCH (07:28)
[2018-10-24] MEDS: ALPRAZolam TAB* 0.25 MG PO PRN ×3 (07:28→21:40)
[2018-10-24] MEDS: Montelukast Sodium TAB* 10 MG PO SCH (07:29)
[2018-10-24] MEDS: Docusate CAP* 100 MG PO SCH (07:29)
[2018-10-24] MEDS: Omeprazole CAP* 20 MG PO SCH (07:29)
[2018-10-24] MEDS: predniSONE TAB* 20 MG PO SCH (07:29)
[2018-10-24] MEDS: Lidocaine PATCH 5%* 1 PATCH TRANSDERM SCH (07:33)
--- NOTE | 2018-10-24 10:24 | PN ---
Subjective Date of Service: 10/24/18 Interval History: Ms. Gomez reports continuing to have back pain and to be short of breath with mobility. She was able to get up with physical therapy and walk to the bathroom yesterday. She is requesting a soft back brace for more support to help with her back pain. Family History: Unchanged from Admission Social History: Unchanged from Admission Past Medical History: Unchanged from Admission Objective Active Medications: Acetaminophen (Tylenol Tab*) 650 mg PO Q4H PRN Al Hydrox/Mg Hydrox/Simethicone (Maalox Plus*) 30 ml PO Q6H PRN Albuterol (Ventolin 2.5 Mg/3 Ml Neb.Maureen*) 2.5 mg INH [id number] AWAKE PRN Albuterol/Ipratropium (Duoneb (Albuterol 2.5 Mg/Ipratropium 0.5 Mg)) 1 neb INH BID PRN Alprazolam (Xanax Tab*) 0.25 mg PO TID PRN Bisacodyl (Dulcolax Ec Tab*) 5 mg PO BEDTIME SANJU Bisacodyl (Dulcolax Supp*) [address] DAILY PRN Cetirizine HCl (Zyrtec*) 10 mg PO DAILY [facility] Docusate Sodium (Colace Cap*) 100 mg PO DAILY [facility] Guaifenesin (Mucinex*) 600 mg PO BID PRN Heparin Sodium (Porcine) (Heparin Vial(*)) 5,000 units SUBCUT Q8HR SANJU Lidocaine (Lidoderm 5% Patch*) 1 patch TRANSDERM DAILY [facility] Magnesium Hydroxide (Milk Of Magnesia Liq*) 30 ml PO Q6H PRN Montelukast Sodium (Singulair Tab*) 10 mg PO DAILY [facility] Omeprazole (Prilosec Cap*) 20 mg PO DAILY [facility] Oxycodone/Acetaminophen (Percocet 5/325 Tab*) 1 tab PO Q8H PRN Polyethylene Glycol/Electrolytes (Miralax*) 17 gm PO DAILY PRN Prednisone (Deltasone Tab*) 40 mg PO DAILY [facility] Vital Signs: Temp Pulse Resp BP Pulse Ox 98.3 F 84 16 154/74 100 10/24/18 02:09 10/24/18 04:33 10/24/18 10:03 10/24/18 02:09 10/24/18 04:33 Oxygen Devices in Use Now: Nasal Cannula Appearance: Elderly female sitting up in bed in NAD Eyes: No Scleral Icterus Neck: NL Appearance and Movements; NL JVP Respiratory: Symmetrical Chest Expansion and Respiratory Effort, Clear to Auscultation Cardiovascular: NL Sounds; No Murmurs; No JVD, No Edema Abdominal: NL Sounds; No Tenderness; No Distention Extremities: No Edema Skin: No Rash or Ulcers Neurological: Alert and Oriented x 3, NL Muscle Strength and Tone Nutrition: Taking PO's Result Diagrams: 10/21/18 05:59 10/24/18 05:51 Assess/Plan/Problems-Billing Assessment: Mrs. Gomez is an 82yo F with PMH of COPD, anxiety, aortic stenosis, who presented to ED with c/o back pain and dyspnea, found to have T9 compression fracture and COPD exacerbation. - Patient Problems (1) COPD exacerbation Comment: - Resolving, lungs clear today, on 3L now (on 2.5L at home) - Poor reserve; pain and anxiety amplify symptoms - Completed course of azithromycin which was started as an outpt - Continue nebs, steroids (2) Compression fracture Comment: - Will attempt to provide a soft brace if available - New T9 fracture noted on CT on admission - Appreciate neurosurgery consult; no interventions recommended and no indication for TLSO brace - Continue PT - Continue perocet and lidocaine patch (3) Aortic stenosis Comment: - Echo shows is stable from last echo in August (4) V-tach Comment: - 5 beats on 10/22; no further episodes - Electrolytes normal - TTE shows no changes since last echo in August (5) Iron deficiency anemia Comment: - Stable (6) Anxiety Comment: - Continue PRN Xanax (7) DVT prophylaxis Comment: - SQ heparin (8) Full code status Comment: Status and Disposition: Inpatient. Continue PT, thus far patient able to ambulate to the bathroom. If continues to improve, anticipate discharge to home in AM.
[2018-10-24] MEDS: Albuterol/Ipratropium NEB.SOL* Albuterol 2.5 MG/Ipratropium 0.5 MG 3 ML INH PRN (13:29)
[2018-10-24] MEDS ORDERED: traMADol TAB* 50 MG PO PRN (14:32)
[2018-10-24] MEDS ORDERED: Ibuprofen TAB* 600 MG PO PRN (14:32)
[2018-10-24] MEDS: Bisacodyl EC TAB* 5 MG PO SCH (20:08)
[2018-10-24] MEDS: Lidocaine Patch REMOVE* 1 NOTE MISC PATCH OFF SCH (20:11)
[2018-10-25] MEDS: oxyCODONE/Acetamin 5/325 MG* TAB PO PRN ×3 (03:39→23:29)
[2018-10-25] MEDS: Albuterol/Ipratropium NEB.SOL* Albuterol 2.5 MG/Ipratropium 0.5 MG 3 ML INH PRN (03:59)
[2018-10-25] MEDS: Heparin VIAL(*) 5000 UNITS/ML VIAL (FIVE THOUSAND) SUBCUT SCH ×3 (05:38→23:31)
--- NOTE | 2018-10-25 07:48 | PN ---
Subjective Date of Service: 10/25/18 Interval History: Ms. Gomez continues to have pain in her back though it is improved with the soft abdominal binder in place. She denies chest pain or SOB. She feels that a major component of her disability is her anxiety. She adamantly does not want to go to rehab but agrees that she is not ready for discharge to home where she lives with her niece. She is very hopeful that she will be ready by Saturday. Family History: Unchanged from Admission Social History: Unchanged from Admission Past Medical History: Unchanged from Admission Objective Active Medications: Acetaminophen (Tylenol Tab*) 650 mg PO Q4H PRN Al Hydrox/Mg Hydrox/Simethicone (Maalox Plus*) 30 ml PO Q6H PRN Albuterol (Ventolin 2.5 Mg/3 Ml Neb.Maureen*) 2.5 mg INH [id number] AWAKE PRN Albuterol/Ipratropium (Duoneb (Albuterol 2.5 Mg/Ipratropium 0.5 Mg)) 1 neb INH BID PRN Alprazolam (Xanax Tab*) 0.25 mg PO TID PRN Bisacodyl (Dulcolax Ec Tab*) 5 mg PO BEDTIME SANJU Bisacodyl (Dulcolax Supp*) 10 mg UT DAILY PRN Cetirizine HCl (Zyrtec*) 10 mg PO DAILY [facility] Docusate Sodium (Colace Cap*) 100 mg PO DAILY [facility] Guaifenesin (Mucinex*) 600 mg PO BID PRN Heparin Sodium (Porcine) (Heparin Vial(*)) 5,000 units SUBCUT Q8HR SANJU Ibuprofen (Motrin Tab*) 600 mg PO Q6H PRN Lidocaine (Lidoderm 5% Patch*) 1 patch TRANSDERM DAILY [facility] Magnesium Hydroxide (Milk Of Magnesia Liq*) 30 ml PO Q6H PRN Montelukast Sodium (Singulair Tab*) 10 mg PO DAILY [facility] Omeprazole (Prilosec Cap*) 20 mg PO DAILY [facility] Oxycodone/Acetaminophen (Percocet 5/325 Tab*) 1 tab PO Q8H PRNb Oxycodone/Acetaminophen (Percocet 5/325 Tab*) 2 tab PO Q4H PRN Pharmacy Profile Note (Lidocaine Patch Remove*) 1 note PATCH OFF [address] [facility] Polyethylene Glycol/Electrolytes (Miralax*) 17 gm PO DAILY PRN Prednisone (Deltasone Tab*) 40 mg PO DAILY [facility] Tramadol HCl (Ultram*) 50 mg PO Q6H PRN Vital Signs: Temp Pulse Resp BP Pulse Ox 97.1 F 80 18 166/61 100 10/25/18 00:10 10/25/18 04:19 10/25/18 04:19 10/25/18 04:19 10/25/18 04:19 Oxygen Devices in Use Now: Nasal Cannula Appearance: Elderly female lying in bed in NAD Eyes: No Scleral Icterus Ears/Nose/Mouth/Throat: Mucous Membranes Moist Neck: Trachea Midline Respiratory: Symmetrical Chest Expansion and Respiratory Effort, Clear to Auscultation Cardiovascular: NL Sounds; No Murmurs; No JVD, No Edema Abdominal: NL Sounds; No Tenderness; No Distention Extremities: No Edema Skin: No Rash or Ulcers Neurological: Alert and Oriented x 3, NL Muscle Strength and Tone Nutrition: Taking PO's Result Diagrams: 10/21/18 05:59 10/24/18 05:51 Assess/Plan/Problems-Billing Assessment: Mrs. Gomez is an 82yo F with PMH of COPD, anxiety, aortic stenosis, who presented to ED with c/o back pain and dyspnea, found to have T9 compression fracture and COPD exacerbation. - Patient Problems (1) COPD exacerbation Comment: - Resolving, lungs clear today, on 3L now (on 2.5L at home) - Poor reserve; pain and anxiety amplify symptoms - Completed course of azithromycin which was started as an outpt - Continue nebs, taper steroids (2) Compression fracture Comment: - Soft brace has improved pain control - New T9 fracture noted on CT on admission - Appreciate neurosurgery consult; no interventions recommended and no indication for TLSO brace - Continue PT. Continue perocet and lidocaine patch, add tramadol and ibuprofen (3) Aortic stenosis Comment: - Echo shows is stable from last echo in August (4) V-tach Comment: - 5 beats on 10/22; no further episodes - Electrolytes normal - TTE shows no changes since last echo in August (5) Iron deficiency anemia Comment: - Stable (6) Anxiety Comment: - Continue PRN Xanax (7) DVT prophylaxis Comment: - SQ heparin (8) Full code status Comment: Status and Disposition: Inpatient. Continue PT, thus far patient able to ambulate to the bathroom. If continues to improve, anticipate discharge to home in AM.
[2018-10-25] MEDS: Lidocaine PATCH 5%* 1 PATCH TRANSDERM SCH (08:39)
[2018-10-25] MEDS: predniSONE TAB* 20 MG PO SCH (08:42)
[2018-10-25] MEDS: Omeprazole CAP* 20 MG PO SCH (08:42)
[2018-10-25] MEDS: Montelukast Sodium TAB* 10 MG PO SCH (08:43)
[2018-10-25] MEDS: Cetirizine* 10 MG TAB PO SCH (08:43)
[2018-10-25] MEDS: Docusate CAP* 100 MG PO SCH (08:43)
[2018-10-25] MEDS: ALPRAZolam TAB* 0.25 MG PO PRN ×3 (08:54→23:30)
[2018-10-25] MEDS: Bisacodyl EC TAB* 5 MG PO SCH (20:21)
[2018-10-25] MEDS: Lidocaine Patch REMOVE* 1 NOTE MISC PATCH OFF SCH (20:23)
[2018-10-26] MEDS: Heparin VIAL(*) 5000 UNITS/ML VIAL (FIVE THOUSAND) SUBCUT SCH ×3 (05:17→20:51)
[2018-10-26] MEDS: ALPRAZolam TAB* 0.25 MG PO PRN ×3 (05:43→19:54)
[2018-10-26] MEDS: Albuterol 2.5 MG/3 ML NEB.SOL* (0.083%) INH PRN (06:00)
[2018-10-26] MEDS: Omeprazole CAP* 20 MG PO SCH (08:55)
[2018-10-26] MEDS: predniSONE TAB* 5 MG PO SCH (08:55)
[2018-10-26] MEDS: Cetirizine* 10 MG TAB PO SCH (08:55)
[2018-10-26] MEDS: Docusate CAP* 100 MG PO SCH (09:06)
[2018-10-26] MEDS: oxyCODONE/Acetamin 5/325 MG* TAB PO PRN ×2 (09:06→19:55)
[2018-10-26] MEDS: Montelukast Sodium TAB* 10 MG PO SCH (09:06)
[2018-10-26] MEDS: Lidocaine PATCH 5%* 1 PATCH TRANSDERM SCH (09:07)
--- NOTE | 2018-10-26 12:23 | PN ---
Subjective Date of Service: 10/26/18 Interval History: Patient seen and examined at bedside. Denies fever, chills, chest discomfort, N/ V/D. Reports that back pain has improved with ABD binder. She has been ambulating in the room. Shortness of breath is at baseline. She is on 3 L O2 via NC and uses 2.5 L at baseline. She is concerned that she now has open areas on her buttocks. Tele: Sinus rhythm, rate 90-100's Family History: Unchanged from Admission Social History: Unchanged from Admission Past Medical History: Unchanged from Admission Objective Active Medications: Acetaminophen (Tylenol Tab*) 650 mg PO Q4H PRN Reason: FEVER/PAIN Al Hydrox/Mg Hydrox/Simethicone (Maalox Plus*) 30 ml PO Q6H PRN Reason: INDIGESTION Albuterol (Ventolin 2.5 Mg/3 Ml Neb.Maureen*) 2.5 mg INH [id number] AWAKE PRN Reason: sob/wheezing Albuterol/Ipratropium (Duoneb (Albuterol 2.5 Mg/Ipratropium 0.5 Mg)) 1 neb INH BID PRN Reason: SHORTNESS OF BREATH Alprazolam (Xanax Tab*) 0.25 mg PO QID PRN Reason: ANXIETY Bisacodyl (Dulcolax Ec Tab*) 5 mg PO BEDTIME SANJU Bisacodyl (Dulcolax Supp*) 10 mg GA DAILY PRN Reason: CONSTIPATION Cetirizine HCl (Zyrtec*) 10 mg PO DAILY [facility] Docusate Sodium (Colace Cap*) 100 mg PO DAILY [facility] Guaifenesin (Mucinex*) 600 mg PO BID PRN Reason: CONGESTION Heparin Sodium (Porcine) (Heparin Vial(*)) 5,000 units SUBCUT Q8HR SANJU Ibuprofen (Motrin Tab*) 600 mg PO Q6H PRN Reason: PAIN Lidocaine (Lidoderm 5% Patch*) 1 patch TRANSDERM DAILY [facility] Magnesium Hydroxide (Milk Of Magnesia Liq*) 30 ml PO Q6H PRN Reason: CONSTIPATION Montelukast Sodium (Singulair Tab*) 10 mg PO DAILY [facility] Omeprazole (Prilosec Cap*) 20 mg PO DAILY [facility] Oxycodone/Acetaminophen (Percocet 5/325 Tab*) 1 tab PO Q8H PRN Reason: PAIN Oxycodone/Acetaminophen (Percocet 5/325 Tab*) 2 tab PO Q4H PRN Reason: PAIN Pharmacy Profile Note (Lidocaine Patch Remove*) 1 note PATCH OFF 2100 [facility] Polyethylene Glycol/Electrolytes (Miralax*) 17 gm PO DAILY PRN Reason: CONSTIPATION Prednisone (Deltasone Tab*) 30 mg PO DAILY SANJU; Taper Stop: 11/03/18 09:59 Tramadol HCl (Ultram*) 50 mg PO Q6H PRN Reason: PAIN Vital Signs - 8 hr 10/26/18 10/26/18 10/26/18 05:43 07:39 09:06 Temperature 97.2 F Pulse Rate 83 Respiratory 22 18 20 Rate Blood Pressure 129/45 (mmHg) O2 Sat by Pulse 100 Oximetry 10/26/18 10:21 Temperature Pulse Rate Respiratory 20 Rate Blood Pressure (mmHg) O2 Sat by Pulse Oximetry Oxygen Devices in Use Now: Nasal Cannula - 3L Appearance: NAD, sitting up on the side of the bed Ears/Nose/Mouth/Throat: Mucous Membranes Moist Respiratory: Symmetrical Chest Expansion and Respiratory Effort, Clear to Auscultation - , diminished Cardiovascular: NL Sounds; No Murmurs; No JVD, RRR Abdominal: NL Sounds; No Tenderness; No Distention Extremities: No Edema Skin: - - Stage 2 pressure injuries to bilateral buttocks Neurological: Alert and Oriented x 3, NL Muscle Strength and Tone Nutrition: Taking PO's Result Diagrams: 10/21/18 05:59 10/24/18 05:51 Assess/Plan/Problems-Billing Assessment: Mrs. Gomez is an 82yo F with PMH significant for COPD, anxiety, and aortic stenosis, who presented to ED with c/o back pain and dyspnea, found to have T9 compression fracture and COPD exacerbation. - Patient Problems (1) COPD exacerbation Code(s): J44.1 - CHRONIC OBSTRUCTIVE PULMONARY DISEASE W (ACUTE) EXACERBATION SNOMED Code(s): 084918797 Comment: - Resolving, lungs clear today, on 3L now (on 2.5L at home) - Poor reserve; pain and anxiety amplify symptoms - Completed course of azithromycin which was started as an outpt - Continue nebs, taper steroids (2) Compression fracture Code(s): DTH9239 - SNOMED Code(s): 519467718 Comment: - New T9 fracture noted on CT on admission - Soft brace has improved pain control - Appreciate neurosurgery consult; no interventions recommended and no indication for TLSO brace - Continue PT, perocet PRN, lidocaine patch, tramadol and ibuprofen (3) V-tach Code(s): I47.2 - VENTRICULAR TACHYCARDIA SNOMED Code(s): 69233462 Comment: - 5 beats on 10/22; no further episodes - Electrolytes normal - TTE shows no changes since last echo in August (4) Stage II pressure ulcer of buttock Code(s): L89.302 - PRESSURE ULCER OF UNSPECIFIED BUTTOCK, STAGE 2 SNOMED Code( s): 66607475741345489 Comment: - Bilateral buttocks - Continue barrier cream or protective dressing if able to keep in place - Enouraged to T+P frequently (5) Aortic stenosis Code(s): I35.0 - NONRHEUMATIC AORTIC (VALVE) STENOSIS SNOMED Code(s): 18372818 Comment: - Echo shows is stable from last echo in August (6) Anxiety Code(s): F41.9 - ANXIETY DISORDER, UNSPECIFIED SNOMED Code(s): 95580840 Comment: - Continue PRN Xanax (7) Iron deficiency anemia Code(s): D50.9 - IRON DEFICIENCY ANEMIA, UNSPECIFIED SNOMED Code(s): 80231280 Comment: - HH stable (8) DVT prophylaxis Code(s): DFN9678 - SNOMED Code(s): 294157217 Comment: - SQ heparin (9) Full code status Code(s): Z78.9 - OTHER SPECIFIED HEALTH STATUS SNOMED Code(s): 064839275 Status and Disposition: Inpatient. Continue PT, thus far patient able to ambulate to the bathroom. If continues to improve, anticipate discharge to home in AM. Attending: Sidra Todd
[2018-10-26] MEDS: Bisacodyl EC TAB* 5 MG PO SCH (20:51)
[2018-10-26] MEDS: Lidocaine Patch REMOVE* 1 NOTE MISC PATCH OFF SCH (20:51)
[2018-10-27] MEDS: ALPRAZolam TAB* 0.25 MG PO PRN ×4 (04:24→21:06)
[2018-10-27] MEDS: oxyCODONE/Acetamin 5/325 MG* TAB PO PRN ×2 (04:37→21:05)
[2018-10-27] MEDS: Heparin VIAL(*) 5000 UNITS/ML VIAL (FIVE THOUSAND) SUBCUT SCH ×3 (04:52→21:07)
[2018-10-27] MEDS: Lidocaine PATCH 5%* 1 PATCH TRANSDERM SCH (09:39)
[2018-10-27] MEDS: Docusate CAP* 100 MG PO SCH (09:40)
[2018-10-27] MEDS: Cetirizine* 10 MG TAB PO SCH (09:40)
[2018-10-27] MEDS: predniSONE TAB* 5 MG PO SCH (09:40)
[2018-10-27] MEDS: Omeprazole CAP* 20 MG PO SCH (09:40)
[2018-10-27] MEDS: Montelukast Sodium TAB* 10 MG PO SCH (10:36)
[2018-10-27] MEDS: Albuterol 2.5 MG/3 ML NEB.SOL* (0.083%) INH PRN ×2 (11:06→15:43)
--- NOTE | 2018-10-27 13:43 | PN ---
Subjective Date of Service: 10/27/18 Interval History: Patient seen and examined at bedside. Denies fever, chills, chest discomfort, N/ V/D. Reports that she is anxious today and is having increased shortness of breath. She doesn't feel ready for discharge home today. She would like to walk more here before she is discharged. She is also on 3L o2 and uses 2.5 L at home. Her back pain continues to be better with the ABD binder in place. Tele: Sinus rhythm, rate 80-90's Family History: Unchanged from Admission Social History: Unchanged from Admission Past Medical History: Unchanged from Admission Objective Active Medications: Acetaminophen (Tylenol Tab*) 650 mg PO Q4H PRN Reason: FEVER/PAIN Al Hydrox/Mg Hydrox/Simethicone (Maalox Plus*) 30 ml PO Q6H PRN Reason: INDIGESTION Albuterol (Ventolin 2.5 Mg/3 Ml Neb.Maureen*) 2.5 mg INH [id number] AWAKE PRN Reason: sob/wheezing Albuterol/Ipratropium (Duoneb (Albuterol 2.5 Mg/Ipratropium 0.5 Mg)) 1 neb INH BID PRN Reason: SHORTNESS OF BREATH Alprazolam (Xanax Tab*) 0.25 mg PO QID PRN Reason: ANXIETY Bisacodyl (Dulcolax Ec Tab*) 5 mg PO BEDTIME SANJU Bisacodyl (Dulcolax Supp*) 10 mg AL DAILY PRN Reason: CONSTIPATION Cetirizine HCl (Zyrtec*) 10 mg PO DAILY SANJU Docusate Sodium (Colace Cap*) 100 mg PO DAILY SANJU Guaifenesin (Mucinex*) 600 mg PO BID PRN Reason: CONGESTION Heparin Sodium (Porcine) (Heparin Vial(*)) 5,000 units SUBCUT Q8HR SANJU Lidocaine (Lidoderm 5% Patch*) 1 patch TRANSDERM DAILY SANJU Magnesium Hydroxide (Milk Of Magnesia Liq*) 30 ml PO Q6H PRN Reason: CONSTIPATION Montelukast Sodium (Singulair Tab*) 10 mg PO DAILY SANJU Omeprazole (Prilosec Cap*) 20 mg PO DAILY SANJU Oxycodone/Acetaminophen (Percocet 5/325 Tab*) 1 tab PO Q8H PRN Reason: PAIN Oxycodone/Acetaminophen (Percocet 5/325 Tab*) 2 tab PO Q4H PRN Reason: PAIN Pharmacy Profile Note (Lidocaine Patch Remove*) 1 note PATCH OFF 2100 SANJU Polyethylene Glycol/Electrolytes (Miralax*) 17 gm PO DAILY PRN Reason: CONSTIPATION Prednisone (Deltasone Tab*) 20 mg PO DAILY SANJU; Taper Stop: 11/03/18 09:59 Tramadol HCl (Ultram*) 50 mg PO Q6H PRN Reason: PAIN Vital Signs - 8 hr 10/27/18 10/27/18 10/27/18 07:35 08:00 09:33 Temperature 97.8 F Pulse Rate 78 101 Respiratory 18 18 Rate Blood Pressure 136/55 146/67 (mmHg) O2 Sat by Pulse 100 100 Oximetry 10/27/18 10/27/18 10/27/18 09:40 11:08 11:21 Temperature Pulse Rate 95 84 Respiratory 22 18 21 Rate Blood Pressure 144/56 (mmHg) O2 Sat by Pulse 99 Oximetry Oxygen Devices in Use Now: Nasal Cannula - 3L Appearance: NAD, laying in bed Ears/Nose/Mouth/Throat: Mucous Membranes Moist Respiratory: Symmetrical Chest Expansion and Respiratory Effort, Clear to Auscultation - , diminished Cardiovascular: RRR Abdominal: NL Sounds; No Tenderness; No Distention Extremities: No Edema Skin: - - Stage 2 pressure injury to bilateral buttocks, not visulized today Neurological: Alert and Oriented x 3, NL Muscle Strength and Tone Lines/Tubes/Other Access: Clean, Dry and Intact Peripheral IV - site benign Nutrition: Taking PO's Result Diagrams: 10/21/18 05:59 10/24/18 05:51 Assess/Plan/Problems-Billing Assessment: Mrs. Gomez is an 82yo F with PMH significant for COPD, anxiety, and aortic stenosis, who presented to ED with c/o back pain and dyspnea, found to have T9 compression fracture and COPD exacerbation. - Patient Problems (1) COPD exacerbation Code(s): J44.1 - CHRONIC OBSTRUCTIVE PULMONARY DISEASE W (ACUTE) EXACERBATION SNOMED Code(s): 494164407 Comment: - Resolving, lungs clear today, on 3L now (on 2.5L at home) - Poor reserve; pain and anxiety amplify symptoms - Completed course of azithromycin which was started as an outpt - Continue nebs and prednisone taper (2) Compression fracture Code(s): MWG9093 - SNOMED Code(s): 494669923 Comment: - New T9 fracture noted on CT on admission - Soft brace has improved pain control - Appreciate neurosurgery consult; no interventions recommended and no indication for TLSO brace - Continue PT, perocet PRN, lidocaine patch, tramadol and ibuprofen (3) V-tach Code(s): I47.2 - VENTRICULAR TACHYCARDIA SNOMED Code(s): 73831594 Comment: - 5 beats on 10/22; no further episodes - Electrolytes normal - TTE shows no changes since last echo in August (4) Stage II pressure ulcer of buttock Code(s): L89.302 - PRESSURE ULCER OF UNSPECIFIED BUTTOCK, STAGE 2 SNOMED Code( s): 49371000306756020 Comment: - Bilateral buttocks - Continue barrier cream or protective dressing if able to keep in place - Enouraged to T+P frequently (5) Aortic stenosis Code(s): I35.0 - NONRHEUMATIC AORTIC (VALVE) STENOSIS SNOMED Code(s): 43730437 Comment: - Echo shows is stable from last echo in August (6) Anxiety Code(s): F41.9 - ANXIETY DISORDER, UNSPECIFIED SNOMED Code(s): 19724319 Comment: - Continue PRN Xanax (7) Iron deficiency anemia Code(s): D50.9 - IRON DEFICIENCY ANEMIA, UNSPECIFIED SNOMED Code(s): 10392162 Comment: - HH stable (8) DVT prophylaxis Code(s): JSM9970 - SNOMED Code(s): 772987954 Comment: (9) Full code status Code(s): Z78.9 - OTHER SPECIFIED HEALTH STATUS SNOMED Code(s): 186628639 Status and Disposition: Inpatient. Continue PT, thus far patient able to ambulate to the bathroom. If continues to improve, anticipate discharge to home in AM. Attending: [place]
[2018-10-27] MEDS: Bisacodyl EC TAB* 5 MG PO SCH (21:07)
[2018-10-27] MEDS: Lidocaine Patch REMOVE* 1 NOTE MISC PATCH OFF SCH (21:07)
[2018-10-28] MEDS: ALPRAZolam TAB* 0.25 MG PO PRN ×3 (03:51→15:20)
[2018-10-28] MEDS: Albuterol/Ipratropium NEB.SOL* Albuterol 2.5 MG/Ipratropium 0.5 MG 3 ML INH PRN (04:13)
[2018-10-28] MEDS: Heparin VIAL(*) 5000 UNITS/ML VIAL (FIVE THOUSAND) SUBCUT SCH ×2 (04:27→14:29)
[2018-10-28] MEDS: Montelukast Sodium TAB* 10 MG PO SCH (09:51)
[2018-10-28] MEDS: predniSONE TAB* 5 MG PO SCH (09:51)
[2018-10-28] MEDS: Lidocaine PATCH 5%* 1 PATCH TRANSDERM SCH (09:52)
[2018-10-28] MEDS: Cetirizine* 10 MG TAB PO SCH (09:52)
[2018-10-28] MEDS: Docusate CAP* 100 MG PO SCH (09:52)
[2018-10-28] MEDS: Omeprazole CAP* 20 MG PO SCH (09:52)
[2018-10-28] MEDS: oxyCODONE/Acetamin 5/325 MG* TAB PO PRN (11:25)
[2018-10-28 17:20] VITALS: BP 143/63
--- NOTE | 2018-10-28 21:52 | DS ---
CC: Dr. Gerard Mistry; Dr. Steven Arshad; Dr. Yovani Bird * DISCHARGE SUMMARY: DATE OF ADMISSION: DATE OF DISCHARGE: DISCHARGE DIAGNOSES: Are as follows: 1. Chronic obstructive pulmonary disease exacerbation. 2. T9 compression fracture on CT status post soft brace placement. 3. V-tach history. 4. Stage 2 pressure ulcer of the buttock. 5. Aortic stenosis. 6. Anxiety. 7. Iron-deficiency anemia. DISCHARGE MEDICATIONS: Are as follows: 1. DuoNeb 1 neb inhalation b.i.d. p.r.n. 2. Alprazolam 0.25 mg p.o. t.i.d. p.r.n. 3. Colace 100 mg cap p.o. daily. 4. Guaifenesin 600 mg p.o. b.i.d. p.r.n. 5. Loratadine 10 mg p.o. daily. 6. Montelukast 10 mg p.o. daily. 7. Omeprazole 20 mg p.o. daily. 8. Percocet 5/325 tab 2 tabs p.o. q.4 p.r.n. 9. Prednisone rapid taper. 10. Tramadol 50 mg p.o. q.6 p.r.n. 11. Albuterol 2 puffs inhalation q.i.d. p.r.n. 12. Azithromycin 250 mg p.o. daily, to complete his prescription at home. 13. Carboxymethylcellulose sodium 1 drop p.o. b.i.d. 14. Cyclobenzaprine 10 mg p.o. t.i.d. 15. Ferrous gluconate 240 mg p.o. daily. 16. Advair 500/50 one puff inhalation b.i.d. 17. Ketoconazole cream topical b.i.d. p.r.n. 18. Lidocaine patch 5% one patch daily. 19. Ondansetron 4 mg p.o. q.8 p.r.n. HISTORY OF PRESENT ILLNESS/HOSPITAL COURSE: The patient is an 82-year-old lady with a history of anxiety, COPD, and aortic stenosis who presented with shortness of breath and back pain and was found to have COPD exacerbation. She had been ruled out for PE with a normal D-dimer and has done well with Solu- Medrol rapid taper, which she will be discharged with. She will also be placed on Advair as a step-up of her therapy. During her hospitalization stay, she was also found to have a T9 compression fracture and was seen in consultation by Neurosurgery, who mentioned no intervention is recommended at this time and no indication for TLSO brace; however, a soft brace has been placed. She has done well and will be discharged home improved. She had been advised to follow up with Dr. Bird's office and to call her office to make and/or confirm an appointment. She was advised to take her medications as prescribed and to use her lidocaine patches for back pain as prescribed. She was advised that if her symptoms resume or develop new ones or feel unwell for any reason, to call her PCP first and if her PCP cannot entertain her due to scheduling issues alone, to call [facility] if the issue is nonemergent. She was advised to call my office regarding any questions, concerns, or further clarifications regarding her discharge plans and /or prescriptions, and she was reminded that if controlled pain medications are needed, to call her PCP for refills. REVIEW OF SYSTEMS: The patient currently denied any headaches, dizziness, fevers, chills, nausea, vomiting, chest pain, shortness of breath, increased cough and/or sputum production, abdominal pain, diarrhea, constipation, pain and /or increased frequency on urination, myalgias, arthralgias, throat pain, or new skin lesions. The rest of the 14-point review of systems are otherwise unremarkable. PHYSICAL EXAMINATION: Reveals the most recent vital signs of records with blood pressure of 119/50, 93 beats per minute heart rate, 16 per minute respiratory rate, saturating at 98% at 2.5 L. General Appearance: The patient is awake, not in acute distress. HEENT: Normocephalic, atraumatic. PERRLA. Extraocular muscles intact. Negative for icterus. Moist oral mucosa. Negative throat erythema. Neck is soft, supple, with no cervical lymphadenopathy. No JVD. Heart: S1, S2 within normal limits. Regular rate and rhythm. No murmurs, rubs, and gallops. Chest: Clear to auscultation bilaterally. Good air entry. No wheezes, rales, and rhonchi. Abdomen is soft , nondistended, nontender. Normoactive bowel sounds x4 quadrants. Extremities : No cyanosis, clubbing, or edema. Psychiatric: No active psychosis, depression, suicidal or homicidal ideations. Skin is warm to touch. TIME SPENT: The total time spent evaluating the patient, reviewing pertinent data and appropriate documentation is 60 minutes. [id number]/CPS #: [id number] MTDD
== END 2018-10-28 14:47 | disposition home health service (06) | DRG 191 ==
LOC: ED 04:46 → MED 15:04
PROVIDERS: ADMIT Student in an Organized Health Care Education/Training Program; ATTEND Student in an Organized Health Care Education/Training Program
PROC: 2W35X3Z Immobilization of Back using Brace (ICD-10-PCS; principal; 2018-10-25)
DX: J44.1 Chronic obstructive pulmonary disease with (acute) exacerbation (principal); M48.54XA Collapsed vertebra, not elsewhere classified, thoracic region, initial encounter for fracture; I47.2 Ventricular tachycardia; F41.9 Anxiety disorder, unspecified; I35.0 Nonrheumatic aortic (valve) stenosis; R09.02 Hypoxemia; M54.9 Dorsalgia, unspecified; K57.90 Diverticulosis of intestine, part unspecified, without perforation or abscess without bleeding; H40.9 Unspecified glaucoma; M47.896 Other spondylosis, lumbar region; K59.00 Constipation, unspecified; M79.7 Fibromyalgia; F32.9 Major depressive disorder, single episode, unspecified; D50.9 Iron deficiency anemia, unspecified; L89.322 Pressure ulcer of left buttock, stage 2; L89.312 Pressure ulcer of right buttock, stage 2; Z90.710 Acquired absence of both cervix and uterus; Z88.6 Allergy status to analgesic agent; Z88.5 Allergy status to narcotic agent; Z88.8 Allergy status to other drugs, medicaments and biological substances; Z99.81 Dependence on supplemental oxygen; Z80.3 Family history of malignant neoplasm of breast; Z82.49 Family history of ischemic heart disease and other diseases of the circulatory system; Z90.10 Acquired absence of unspecified breast and nipple; Z79.52 Long term (current) use of systemic steroids; Z87.891 Personal history of nicotine dependence; Z82.3 Family history of stroke; Z83.3 Family history of diabetes mellitus
CPT/HCPCS: 36415; 71045; 72128; 72131; 80048; 80053; 83605; 83735; 84484; 85025; 85379; 93005; 93306; 94640; 99284; A9270-GY; G8978-GP-CK; G8979-GP-CI; G8987-GO-CK; G8988-GO-CI; J1644; J1885; J2920; J2930; J7512

== ENCOUNTER 2018-12-01 07:57 | Inpatient (IN) | payer MEDICARE ==
[2018-12-01] MEDS ORDERED: NS 0.9% 1000 ML* 1,000 ML IV ONE (08:10)
[2018-12-01] MEDS ORDERED: methylPREDNISolone 125 MG* 2 ML VIAL IV ONE (08:10)
--- NOTE | 2018-12-01 08:14 | ED ---
Shortness of Breath - HPI Summary HPI Summary: This patient is a 83 year old F brought in by EMS to [facility] with a chief complaint of SOB that has been getting worse for months. The patient rates the pain 0/10 in severity. Patient reports LE edema and chest congestion. Patient denies cough and CP. She states she just is tired of struggling to breath, so she called EMS. She has a hx of COPD and uses 2.5 L NC at home 10/06. Pt was given one duoneb tx. - History of Current Complaint Time Seen by Provider: 12/01/18 08:01 Hx Obtained From: Patient Onset/Duration: Lasting Weeks - 4, Still Present Timing: Constant Current Severity: Moderate Dyspnea At: Rest Associated Signs & Symptoms: Negative - CP and cough - Allergy/Home Medications Allergies/Adverse Reactions: Allergies Allergy/AdvReac Type Severity Reaction Status Date / Time codeine Allergy Vomiting Verified 12/01/18 08:10 diphenhydramine Allergy Unknown Verified 12/01/18 08:10 Reaction Details hydrocodone Allergy Vomiting Verified 12/01/18 08:10 propoxyphene Allergy Vomiting Verified 12/01/18 08:10 tramadol Allergy Vomiting Verified 12/01/18 08:10 Home Medications: Home Medications Acetaminophen TAB* [Tylenol TAB*] 325 mg PO Q6H PRN 12/01/18 [History Confirmed 12/01/18] Alendronate (NF) [Fosamax (NF)] 70 mg PO WEEKLY 12/01/18 [History Confirmed ] Budesonide NEB* [Pulmicort NEB*] 0.5 mg INH BID 12/01/18 [History Confirmed ] Clobetasol Propionate/Emoll [Clobetasol Propionate Emo] 0.05 % TOPICAL BID PRN 12/01/18 [History Confirmed 12/01/18] Desloratidine (NF) [Clarinex (NF)] 5 mg PO DAILY PRN 12/01/18 [History Confirmed 12/01/18] Docusate CAP* [Colace Cap*] 100 mg PO BID 12/01/18 [History Confirmed 12/01/18] Famotidine [Acid [employer]] 10 mg PO BID PRN 12/01/18 [History Confirmed 12/01/18] Ferrous Gluconate TAB* [Fergon TAB*] 325 mg PO DAILY 12/01/18 [History Confirmed 12/01/18] Hypromellose [Systane Overnight Therapy] 0.3 % BOTH EYES DAILY 12/01/18 [ History Confirmed 12/01/18] Ketoconazole 2 % CREAM (NF) [Nizoral 2% CREAM (NF)] 1 applic TOPICAL BID PRN [History Confirmed 12/01/18] LoraTADine TAB(NF) [Claritin 10 MG TAB(NF)] 10 mg PO DAILY 12/01/18 [History Confirmed 12/01/18] Propylene Glycol/Peg 400/Pf [Systane 0.3-0.4% Eye Drops] 1 drop BOTH EYES DAILY 12/01/18 [History Confirmed 12/01/18] Sodium Chloride [[place] Saline] 50 ml BOTH NARES BID PRN 12/01/18 [History Confirmed 12/01/18] Tiotropium CAP.INH* [Spiriva CAP.INH*] 1 cap.inh INH DAILY 12/01/18 [History Confirmed 12/01/18] guaiFENesin ER TAB [Mucinex*] 600 mg PO BID 12/01/18 [History Confirmed 12/01/18 ] oxyCODONE/Acetamin 5/325 MG* [Percocet 5/325 TAB*] 1 tab PO Q6H PRN 12/01/18 [ History Confirmed 12/01/18] predniSONE TAB* [Deltasone TAB*] 2.5 - 5 mg PO DAILY 12/01/18 [History Confirmed 12/01/18] PMH/Surg Hx/FS Hx/Imm Hx Endocrine/Hematology History: Denies: Hx Diabetes Cardiovascular History: Reports: Hx Angina - usually mid to left chest, Hx Hypertension, Hx Valvular Heart Disease, Other Cardiovascular Problems/ Disorders - Aortic stenosis Respiratory History: Reports: Hx Chronic Obstructive Pulmonary Disease (COPD) - pt reports on 2-2.5L O2 at baseline 10/06 GI History: Reports: Hx Diverticulosis - divericulitis Musculoskeletal History: Reports: Hx Arthritis - lumbar spine, Hx Fibromyalgia Sensory History: Reports: Hx Contacts or Glasses, Hx Glaucoma, Hx Vision Problem , Hx Hearing Aid Opthamlomology History: Reports: Hx Contacts or Glasses, Hx Glaucoma, Hx Vision Problem Neurological History: Reports: Hx Headaches Psychiatric History: Reports: Hx Anxiety, Hx Depression - Surgical History Surgery Procedure, Year, and Place: HYSTERECTOMY, TONSILLECTOMY, BILAT BREAST BIOPSIES (BENIGN FIBROID CYSTS), APPENDECTOMY Hx Anesthesia Reactions: No - Family History Known Family History: Positive: Cardiac Disease - Positive heart failure to both parents, Other - Positive breast CA to sister - Social History Alcohol Use: None Hx Substance Use: No Substance Use Type: Reports: None Hx Tobacco Use: Yes Smoking Status (MU): Former Smoker Review of Systems Negative: Fever Negative: Chest Pain Positive: Shortness Of Breath, Other - chest congestion . Negative: Cough Positive: Edema All Other Systems Reviewed And Are Negative: Yes Physical Exam - Summary Physical Exam Summary: VITAL SIGNS: Reviewed. GENERAL: Patient is a frail, thin, and elderly woman who is lying comfortable in the stretcher. Patient is in acute respiratory distress. HEAD AND FACE: No signs of trauma. No ecchymosis, hematomas or skull depressions. No sinus tenderness. EYES: PERRLA, EOMI x 2, No injected conjunctiva, no nystagmus. EARS: Hearing grossly intact. Ear canals and tympanic membranes are within normal limits. MOUTH: Oropharynx within normal limits. NECK: Supple, trachea is midline, no adenopathy, no JVD, no carotid bruit, no c- spine tenderness, neck with full ROM. CHEST: Symmetric, no tenderness at palpation LUNGS: diminished breath sounds bilaterally with a slight wheeze CVS: Regular rate and rhythm, S1 and S2 present, no murmurs or gallops appreciated. ABDOMEN: Soft, non-tender. No signs of distention. No rebound no guarding, and no masses palpated. Bowel sounds are normal. EXTREMITIES: FROM in all major joints. Bilateral +1 LE edema. NEURO: Alert and oriented x 3. No acute neurological deficits. Speech is normal and follows commands. SKIN: Dry and warm Triage Information Reviewed: Yes Vital Signs Reviewed: Yes Diagnostics - Laboratory Result Diagrams: 12/01/18 08:49 12/01/18 08:49 Lab Statement: Any lab studies that have been ordered have been reviewed, and results considered in the medical decision making process. - Radiology cXR Radiology Interpretation Completed By: Radiologist Summary of Radiographic Findings: 1. COPD. 2. OSTEOPENIA WITH PROGRESSION OF COMPRESSION DEFORMITIES OF THE THORACIC SPINE, WITHOUT. OSSEOUS RETROPULSION. ED physician has reviewed this radiology report. - EKG 0807 Cardiac Rate: Tachycardia EKG Rhythm: Sinus Tachycardia - at 101 BPM EKG Comparison: No Significant Change - similar 10-30-18 Course/Dx - Course Assessment/Plan: This patient is a 83 year old F brought in by EMS to [facility] with a chief complaint of SOB that has been getting worse for months. The patient rates the pain 0/10 in severity. Patient reports LE edema and chest congestion. Patient denies cough and CP. She states she just is tired of struggling to breath, so she called EMS. She has a hx of COPD and uses 2.5 L NC at home 10/06. Pt was given on duoneb tx. Blood work without any significant abnormality except for hemoglobin of 11.7, sodium 134, creatinine is 0.48, glucose of 104, active. Is 136 and CRP 43.88. Urinalysis is negative for UTI. In the ED course the patient seems to be in severe shortness of breath therefore the patient was given DuoNebs, Solu-Medrol and magnesium. ABG shows a pH of 7.27 PCO2 59 O2 sat 98.5% and 3 L of oxygen. Chest x-ray impression: COPD. After DuoNebs and Solu-Medrol treatments the patients symptoms have improved and now the patient has diffuse wheezing. Therefore believe that the patient has a COPD exacerbation. I discussed my physical exam and findings with Dr. Nava from the hospitalist services who accepted the patient for admission. The patient is hemodynamically stable. - Diagnoses Provider Diagnoses: COPD (chronic obstructive pulmonary disease) - Physician Notifications Discussed Care of Patient With: Sandra Nava Time Discussed With Above Provider: 10:30 Instructed by Provider To: Admit As Inpatient Discharge - Sign-Out/Discharge Documenting (check all that apply): Patient Departure - admitted - Discharge Plan Condition: Fair Disposition: ADMITTED TO [facility] - Billing Disposition and Condition Condition: FAIR Disposition: Admitted to [facility] - Attestation Statements Document Initiated by Leonelibe: Yes Documenting Scribe: Arnav Soares Provider For Whom Sun is Documenting (Include Credential): Gerard Mistry MD Scribe Attestation: Arnav Fortune scribed for Gerard Mistry MD on 12/01/18 at 1806. Scribe Documentation Reviewed: Yes Provider Attestation: The documentation as recorded by the Arnav lopez accurately reflects the service I personally performed and the decisions made by me, Gerard Mistry MD Status of Sun Document: Viewed
[2018-12-01] MEDS: Albuterol/Ipratropium NEB.SOL* Albuterol 2.5 MG/Ipratropium 0.5 MG 3 ML INH SCH ×3 (08:26→13:01)
[2018-12-01 09:01] LABS: ABS Basophils 0.1 10^3/ul (0-0.2); ABS Eosinophils 0.1 10^3/ul (0-0.6); ABS Lymphocytes 1.5 10^3/ul (1.0-4.8); ABS Monocytes 0.7 10^3/ul (0-0.8); ABS Neutrophils 5.4 10^3/ul (1.5-7.7); ABS Nucleated RBC 0 10^3/ul; Eosinophil % 1.4 %; Hematocrit 35 % (35-47); Hemoglobin 11.8 g/dl (12.0-16.0); Lymphocyte % 19.4 %; Mean Corpuscular HGB Conc 33 g/dl (31-36); Mean Corpuscular Hemoglobin 30 pg (27-31); Mean Corpuscular Volume 91 fL (80-97); Nucleated Red Blood Cells % 0; Platelet Count 336 10^3/ul (150-450); Red Blood Count 3.87 10^6/ul (4.00-5.40); Red Cell Distribution Width 15 % (10.5-15); White Blood Count 7.8 10^3/ul (3.5-10.8)
[2018-12-01 09:10] LABS: Activated Partial Thrombo Time 28.8 seconds (26.0-36.3); INR 0.92 (0.77-1.02)
[2018-12-01 09:19] LABS: Albumin 3.6 g/dL (3.2-5.2); Albumin/Globulin Ratio 1.4 (1-3); BUN/Creatinine Ratio 20.8 (8-20); C Reactive Protein 43.88 mg/L (<8.01); Calcium 9.1 mg/dL (8.6-10.3); EGFR Non-African American 124.1 (>60); Globulin 2.6 g/dL (2-4); Potassium 3.9 mmol/L (3.5-5.0); Total Bilirubin 0.5 mg/dL (0.2-1.0); Total Protein 6.2 g/dL (6.4-8.9)
[2018-12-01 09:27] LABS: Urine Appearance Clear; Urine Bilirubin Negative (Negative); Urine Blood Negative (Negative); Urine Color Yellow; Urine Glucose Negative (Negative); Urine Ketones Trace (Negative); Urine Nitrite Negative (Negative); Urine Protein Negative (Negative); Urine Specific Gravity 1.009 (1.010-1.030); Urine Urobilinogen Negative (Negative)
[2018-12-01] MEDS ORDERED: LORazepam TAB(*) 1 MG PO ONE (10:46)
[2018-12-01] MEDS ORDERED: Famotidine TAB* 20 MG PO PRN (11:45)
[2018-12-01] MEDS ORDERED: Acetaminophen TAB* 325 MG PO PRN (11:45)
[2018-12-01] MEDS ORDERED: NS 0.9% 1000 ML* 1,000 ML IV SCH (12:00)
[2018-12-01] MEDS: Heparin VIAL(*) 5000 UNITS/ML VIAL (FIVE THOUSAND) SUBCUT SCH ×2 (13:36→20:38)
[2018-12-01] MEDS: Levalbuterol 0.63MG/3ML NEB* UNIT OF USE INH SCH ×2 (14:35→19:49)
--- NOTE | 2018-12-01 16:10 | HP ---
CC: Dr. Yovani Bird * HISTORY AND PHYSICAL: DATE OF ADMISSION: 12/01/18 PRIMARY CARE PROVIDER: Dr. Yovani Bird. ATTENDING PHYSICIAN: Dr. Sandra Nava * (dictated by Ruben Smith NP). CHIEF COMPLAINT: Shortness of breath. HISTORY OF PRESENT ILLNESS: Ms. Gomez is an 83-year-old female with past medical history significant for aortic stenosis, COPD on 2.5 L nasal cannula of oxygen at home, anxiety, T9 compression fracture and iron deficiency anemia, who states that she has had significant change in her shortness of breath for the past weeks to months. Last night, she felt as though it had been the worse that it had been. She states that taking ProAir generally helps with her breathing. She uses this 4 to 5 times a day. Her niece who lives with her had recommended she come to the emergency room for evaluation yesterday, but she had declined. She denies any recent fevers, chills, chest pain. She reports an occasional cough with phlegm production that is clear or white. She states she is always short of breath at rest and on exertion. She denies nausea, vomiting, diarrhea, abdominal pain, dysuria. She occasionally has postnasal drip and nasal congestion. She states today is her last day of azithromycin for sinus issues. She reports having a nosebleed yesterday after using cotton swabs up her nose. She was then able to stop the bleeding. She occasionally has left arm pain, but denies any right now. She reports urinary frequency, but this is similar to her baseline. She wears a back brace for her T9 fracture. She reports a poor appetite, but has been making herself to eat. Due to her significant shortness of breath, she presented to the emergency room for further evaluation of her symptoms. While in the emergency room, she received a DuoNeb and Ativan due to her anxiety , IV Solu-Medrol and a liter of normal saline. She had a chest x-ray showing COPD. She had labs that were fairly unremarkable, showing a mild anemia similar to her baseline. CRP of 43.88. EKG showing a sinus tach. Negative urinalysis. Hospitalists were asked to evaluate the patient for admission. PAST MEDICAL HISTORY: 1. Aortic stenosis. 2. COPD, on 2.5 L via nasal cannula at home. 3. Anxiety. 4. T9 compression fracture. 5. Iron deficiency anemia. PAST SURGICAL HISTORY: 1. Status post section. 2. Status post breast lumpectomy. 3. Status post hysterectomy. 4. Status post tonsillectomy. HOME MEDICATIONS: Include: 1. Xanax 0.25 mg oral 4 times daily as needed. 2. Fosamax 70 mg oral weekly. 3. Percocet 5/325 one tablet oral every 6 hours as needed for pain. 4. Econazole 2% cream apply topically twice daily as needed for rash. 5. Clobetasol 0.05% topical apply twice daily as needed for rash. 6. Guaifenesin ER 600 mg oral twice daily. 7. Loratadine 10 mg oral daily. 8. Ferrous gluconate 325 mg oral daily. 9. Omeprazole 20 mg oral daily. 10. Colace 100 mg oral twice daily. 11. Zofran 4 mg oral every 6 hours as needed for pain. 12. Acetaminophen 325 mg oral every 6 hours as needed for pain. 13. Prednisone 2.5 to 5 mg oral daily. 14. Singulair 10 mg oral daily. 15. Spiriva 1 capsule inhalation daily. 16. [place] saline of 50 mL bottle spray to both nares twice daily as needed for nasal congestion. 17. Famotidine 10 mg oral twice daily as needed for indigestion. 18. Clarinex 5 mg oral daily as needed for allergy symptoms. 19. Systane overnight therapy 0.3% to both eyes daily. 20. Systane 0.3%-0.4% eye drops, 1 drop to both eyes daily. 21. DuoNeb 1 neb inhalation 4 times daily. 22. Albuterol RespiClick 2 puffs inhalation 4 times daily as needed for shortness of breath or wheeze. 23. Pulmicort 0.5 mg inhalation twice daily. ALLERGIES: CODEINE, BENADRYL, HYDROCODONE, PROPOXYPHENE, and TRAMADOL. FAMILY HISTORY: No family history of coronary artery disease. Mother with a history of CVA. Sister with a history of diabetes mellitus. Grandmother with an unknown cancer. Sister with a history of breast cancer. SOCIAL HISTORY: She is a former smoker, quitting 14 years ago. Prior to that, she had a 44 one-pack a day smoking history. She denies alcohol or recreational drug use. Her son, Walter Hdez or her niece will be her surrogate decision makers in the event she is unable to make decisions for herself. REVIEW OF SYSTEMS: I performed an 11-point review of systems. All the pertinent positives and negatives are mentioned in the history of present illness. Remaining review of systems are negative. PHYSICAL EXAMINATION GENERAL APPEARANCE: She is alert, pleasant, and appears to be in no acute distress. VITAL SIGNS: Temperature 98.5, heart rate 111, respiratory rate 25, O2 sat 99% on room air, blood pressure 182/93. HEENT: Normocephalic, atraumatic. Pupils are equal. Extraocular movements are intact. RESPIRATORY: There is no accessory muscle use. The lungs are clear to auscultation bilaterally with the exception of some expiratory wheezing in the left lower lobe. CARDIOVASCULAR: Regular rate and rhythm. S1 and S2 present. There is a grade 2/6 systolic murmur heard throughout the pericardium. There are no rubs or gallops heard. ABDOMEN: Soft, nontender, nondistended. There are bowel sounds present x4. EXTREMITIES: There is no lower extremity edema. DP and PT pulses are 1+ and symmetric. MUSCULOSKELETAL: There is no clubbing or cyanosis noted. The patient exhibits good strength in all extremities. NEUROLOGIC: Alert and oriented x4. Cranial nerves II through XII are grossly intact. PSYCHOLOGICAL: Anxious, but cooperative. SKIN: There are no rashes or abnormalities visualized. DIAGNOSTIC STUDIES/LAB DATA: Sodium 134, potassium 3.9, chloride 93, CO2 of 37 , BUN 20, creatinine 0.48, glucose 104. White blood cell count 7.8, hemoglobin 11.8, hematocrit 35, platelet count 336. CRP 43.88. Blood gas, ABG, pH 7.37, pCO2 of 59, pO2 of 81, HCO3 of 30.3, O2 sat 98.5, base excess 6.9. Urinalysis significant for 1.009 specific gravity, trace ketones. EKG shows a sinus tachycardia, rate of 101. There are no acute signs of ischemia. This EKG is similar to previous from 10/20/18. Chest x-ray from today. Radiologist's impression: COPD, osteopenia with progression of compression deformities of the thoracic spine without osseous retropulsion. IMPRESSION: Ms. Gomez is an 83-year-old female with past medical history significant for aortic stenosis, chronic obstructive pulmonary disease with chronic hypoxic respiratory failure, on home O2, anxiety, T9 compression fracture and iron deficiency anemia, who presents to the emergency room with complaints of shortness of breath. She will be admitted as an inpatient for chronic obstructive pulmonary disease exacerbation. ASSESSMENT/PLAN: 1. Chronic obstructive pulmonary disease exacerbation. Per reports from the ER physician, she had significant wheezing on arrival after receiving a DuoNeb. Her wheezing is now minimal. She is recently coming off azithromycin, so I am going to hold off on antibiotics at this time. She is to complete her Z-Niraj today. I will place her on Xopenex nebs q.6 while awake. I am going to avoid albuterol as she is already tachycardic. I am going to bump her daily maintenance prednisone up to 50 mg daily. She did receive IV Solu-Medrol in the emergency room. Continue her on her Singulair daily and loratadine. We will continue her on her Pulmicort and continue Spiriva. We will have physical therapy evaluate her. She has decreased activity tolerance due to her chronic obstructive pulmonary disease. Additionally, based on her response to our treatment plan, we will consider asking Dr. Medina to consult on the patient tomorrow. 2. Anxiety. We will continue her on Ativan as needed. 3. Chronic hypoxic respiratory failure. The patient is currently requiring 2.5 L via nasal cannula, this is her baseline. 4. T9 compression fracture. We will continue her on pain management. She can continue to wear her soft brace. 5. Iron deficiency anemia. Her hemoglobin is at her baseline. 6. Aortic stenosis. She has a murmur heard. She had an echo in October 2018 showing [id number] aortic stenosis. We will cautiously monitor her fluid status in the setting of her aortic stenosis. 7. Fluids, electrolytes, and nutrition: She will be on a heart healthy diet. 8. Code status: Full code. 9. DVT prophylaxis. She is at a high risk. She will have subcu heparin. 10. Disposition: Inpatient. TIME SPENT: Time for this admission was approximately 60 minutes, greater than half of that was spent with the patient discussing medications, past medical history, the events leading to her arrival today, and performing physical examination. The case has been reviewed with the attending, Dr. Nava, who agrees with the plan of care. RUBEN SMITH, CALIBRATOR [employer] [id number]/[facility] #: [id number] [facility]ierra
[2018-12-01] MEDS: Budesonide NEB* 0.5 MG/2 ML NEB.SOLN INH SCH (19:49)
[2018-12-01] MEDS: Docusate CAP* 100 MG PO SCH (20:37)
[2018-12-01] MEDS: ALPRAZolam TAB* 0.25 MG PO PRN (20:37)
[2018-12-01] MEDS: guaiFENesin ER TAB 600 MG PO SCH (20:37)
[2018-12-02] MEDS: Levalbuterol 0.63MG/3ML NEB* UNIT OF USE INH SCH ×4 (01:12→19:43)
[2018-12-02] MEDS: ALPRAZolam TAB* 0.25 MG PO PRN ×3 (01:30→14:10)
[2018-12-02] MEDS: Heparin VIAL(*) 5000 UNITS/ML VIAL (FIVE THOUSAND) SUBCUT SCH ×3 (05:57→20:19)
[2018-12-02 06:59] LABS: BUN/Creatinine Ratio 18.9 (8-20); EGFR Non-African American 167.6 (>60); Potassium 4.7 mmol/L (3.5-5.0)
[2018-12-02] MEDS: Budesonide NEB* 0.5 MG/2 ML NEB.SOLN INH SCH ×2 (08:09→19:43)
[2018-12-02] MEDS: Tiotropium CAP.INH* CAP.INH/18 MCG (USE ORDER SET !) INH SCH (08:09)
[2018-12-02] MEDS: Pantoprazole TAB * 40 MG TAB PO SCH (08:44)
[2018-12-02] MEDS: Docusate CAP* 100 MG PO SCH ×2 (08:44→20:18)
[2018-12-02] MEDS: Ferrous Gluconate TAB* 324 MG TAB PO SCH (08:44)
[2018-12-02] MEDS: Montelukast Sodium TAB* 10 MG PO SCH (08:44)
[2018-12-02] MEDS: predniSONE TAB* 50 MG PO SCH (08:44)
[2018-12-02] MEDS: guaiFENesin ER TAB 600 MG PO SCH ×2 (08:44→20:18)
[2018-12-02] MEDS: CMC:LoraTADine TAB(NF) 10 MG TAB PO SCH (08:44)
[2018-12-02] MEDS ORDERED: Spiriva Inhaler DEVICE* 1 EACH DEVICE INH ONE (09:00)
[2018-12-02] MEDS: oxyCODONE/Acetamin 5/325 MG* TAB PO PRN ×2 (10:14→22:11)
[2018-12-02] MEDS: Albuterol HFA INHALER* 8 gm MDI INH PRN (16:00)
[2018-12-02] MEDS: Saline NASAL SPRAY 0.65%* BTL BOTH NARES PRN (19:32)
--- NOTE | 2018-12-02 20:03 | PN ---
Subjective Date of Service: 12/02/18 Interval History: Patient continues to c/o shortness of breath and nasal congestion. Patient denies chest pain or shortness of breath. Denies abd pain n/v/d. Family History: Unchanged from Admission Social History: Unchanged from Admission Past Medical History: Unchanged from Admission Objective Active Medications: Acetaminophen (Tylenol Tab*) 650 mg PO Q4H PRN PRN Reason: FEVER/PAIN Albuterol (Ventolin Hfa Inhaler*) 1 puff INH [id number] AWAKE PRN PRN Reason: SHORTNESS OF BREATH Last Admin: 12/02/18 16:00 Dose: 1 puff Alprazolam (Xanax Tab*) 0.25 mg PO TID PRN PRN Reason: ANXIETY Last Admin: 12/02/18 14:10 Dose: 0.25 mg Budesonide (Pulmicort Neb*) 0.5 mg INH BID [facility] Last Admin: 12/02/18 19:43 Dose: 0.5 mg Docusate Sodium (Colace Cap*) 100 mg PO BID [facility] Last Admin: 12/02/18 08:44 Dose: 100 mg Famotidine (Pepcid Tab*) 10 mg PO BID PRN PRN Reason: INDIGESTION Ferrous Gluconate (Fergon Tab*) 324 mg PO DAILY [facility] Last Admin: 12/02/18 08:44 Dose: 324 mg Guaifenesin (Mucinex*) 600 mg PO BID [facility] Last Admin: 12/02/18 08:44 Dose: 600 mg Heparin Sodium (Porcine) (Heparin Vial(*)) 5,000 units SUBCUT Q8HR [facility] Last Admin: 12/02/18 14:11 Dose: 5,000 units Levalbuterol HCl (Xopenex 0.63mg/3ml Neb*) 0.63 mg INH [id number] AWAKE [facility] Last Admin: 12/02/18 19:43 Dose: 0.63 mg Loratadine (Claritin Tab(Nf)) 10 mg PO DAILY [facility] Last Admin: 12/02/18 08:44 Dose: 10 mg Montelukast Sodium (Singulair Tab*) 10 mg PO DAILY [facility] Last Admin: 12/02/18 08:44 Dose: 10 mg Ondansetron HCl (Zofran Odt Tab*) 4 mg PO Q6HR PRN PRN Reason: NAUSEA/VOMITING Oxycodone/Acetaminophen (Percocet 5/325 Tab*) 1 tab PO Q6H PRN PRN Reason: PAIN Last Admin: 12/02/18 10:14 Dose: 1 tab Pantoprazole Sodium (Protonix Tab (Nf)) 40 mg PO DAILY [facility] Last Admin: 12/02/18 08:44 Dose: 40 mg Prednisone (Deltasone Tab*) 50 mg PO DAILY [facility] Last Admin: 12/02/18 08:44 Dose: 50 mg Sodium Chloride (Sodium Chloride 0.65% Nasal [place]*) 1 spray BOTH NARES BID PRN PRN Reason: PER PROTOCOL Last Admin: 12/02/18 19:32 Dose: 1 spray Tiotropium [place] (Spiriva Cap.Inh*) 1 cap INH DAILY [facility] Last Admin: 12/02/18 08:09 Dose: 1 cap Vital Signs - 8 hr 12/02/18 12/02/18 12/02/18 14:09 14:10 14:19 Temperature Pulse Rate 112 Respiratory 20 20 22 Rate Blood Pressure (mmHg) O2 Sat by Pulse 98 Oximetry 12/02/18 12/02/18 12/02/18 15:03 18:07 18:13 Temperature 98.3 F Pulse Rate 96 Respiratory 26 25 25 Rate Blood Pressure 147/77 (mmHg) O2 Sat by Pulse 100 Oximetry 12/02/18 12/02/18 12/02/18 19:32 19:37 19:46 Temperature 97.8 F Pulse Rate 108 105 Respiratory 22 18 20 Rate Blood Pressure 142/80 (mmHg) O2 Sat by Pulse 99 99 Oximetry Oxygen Devices in Use Now: Nasal Cannula Appearance: appears comfortable , no acute distress Eyes: No Scleral Icterus Ears/Nose/Mouth/Throat: Clear Oropharnyx, Mucous Membranes Moist Neck: NL Appearance and Movements; NL JVP, Trachea Midline Respiratory: Symmetrical Chest Expansion and Respiratory Effort, - - diminished t/o bilat with a few scattered exp wheezes Cardiovascular: NL Sounds; No Murmurs; No JVD Abdominal: NL Sounds; No Tenderness; No Distention Extremities: No Edema, No Clubbing, Cyanosis Skin: No Rash or Ulcers Neurological: Alert and Oriented x 3 Nutrition: Taking PO's Result Diagrams: 12/01/18 08:49 12/02/18 05:53 Microbiology and Other Data: Microbiology 12/01/18 08:41 Aerobic Blood Culture - Preliminary Blood Venous No Growth Day 1 Anaerobic Blood Culture - Final Not Reportable 12/01/18 08:48 Aerobic Blood Culture - Preliminary Blood Venous No Growth Day 1 Anaerobic Blood Culture - Preliminary No Growth Day 1 Assess/Plan/Problems-Billing Assessment: Ms Gomez is a 83 y.o female with past medical hx significant for COPD, anxiety - Patient Problems (1) COPD exacerbation Current Visit: No Status: Acute Code(s): J44.1 - CHRONIC OBSTRUCTIVE PULMONARY DISEASE W (ACUTE) EXACERBATION SNOMED Code(s): 747306570 Comment: - remains short of breath - Poor reserve; pain and anxiety amplify symptoms - - Continue nebs and prednisone and home inhalers - patient finished z-justin yesterday - will hold on further antibiotic at this time (2) Anxiety Current Visit: No Status: Acute Code(s): F41.9 - ANXIETY DISORDER, UNSPECIFIED SNOMED Code(s): 32815444 Comment: - Continue PRN Xanax (3) Compression fracture Current Visit: No Status: Acute Code(s): GHY1724 - SNOMED Code(s): 846228493 Comment: - T9 fracture noted in 11/04 - continue brace for comfort (4) DVT prophylaxis Current Visit: No Status: Acute Code(s): KYO4868 - SNOMED Code(s): 299044631 Comment: heparin sub q (5) Full code status Current Visit: No Status: Acute Code(s): Z78.9 - OTHER SPECIFIED HEALTH STATUS SNOMED Code(s): 220387669 Comment: (6) Aortic stenosis Current Visit: No Status: Acute Code(s): I35.0 - NONRHEUMATIC AORTIC (VALVE ) STENOSIS SNOMED Code(s): 64001066 Comment: - stable (7) Iron deficiency anemia Current Visit: No Status: Acute Code(s): D50.9 - IRON DEFICIENCY ANEMIA, UNSPECIFIED SNOMED Code(s): 91918429 Comment: - HH stable will continue iron supplementation Status and Disposition: inpatient
[2018-12-02] MEDS: Morphine INJ* 2 MG/ML 1 ML SYRINGE (TWO MG - NEW SYRINGE VERSION) IV PRN (20:15)
[2018-12-03] MEDS: Levalbuterol 0.63MG/3ML NEB* UNIT OF USE INH SCH ×5 (02:08→20:27)
[2018-12-03] MEDS ORDERED: Magnesium Sulfate 1 GM IV* 1 GM/100 ML BAG IV ONE (03:00)
[2018-12-03] MEDS: oxyCODONE/Acetamin 5/325 MG* TAB PO PRN ×2 (03:11→20:41)
[2018-12-03] MEDS: ALPRAZolam TAB* 0.25 MG PO PRN ×3 (03:11→20:44)
[2018-12-03] MEDS: Saline NASAL SPRAY 0.65%* BTL BOTH NARES PRN ×3 (03:12→16:33)
[2018-12-03] MEDS: Heparin VIAL(*) 5000 UNITS/ML VIAL (FIVE THOUSAND) SUBCUT SCH ×3 (06:13→20:47)
[2018-12-03] MEDS: Tiotropium CAP.INH* CAP.INH/18 MCG (USE ORDER SET !) INH SCH (07:25)
[2018-12-03] MEDS: Budesonide NEB* 0.5 MG/2 ML NEB.SOLN INH SCH ×2 (07:25→20:27)
[2018-12-03] MEDS: CMC:LoraTADine TAB(NF) 10 MG TAB PO SCH (07:40)
[2018-12-03] MEDS: Pantoprazole TAB * 40 MG TAB PO SCH (07:41)
[2018-12-03] MEDS: Docusate CAP* 100 MG PO SCH ×2 (07:41→20:44)
[2018-12-03] MEDS: guaiFENesin ER TAB 600 MG PO SCH ×2 (07:41→20:45)
[2018-12-03] MEDS: Morphine INJ* 2 MG/ML 1 ML SYRINGE (TWO MG - NEW SYRINGE VERSION) IV PRN ×3 (07:41→17:44)
[2018-12-03] MEDS: Montelukast Sodium TAB* 10 MG PO SCH (07:41)
[2018-12-03] MEDS: predniSONE TAB* 50 MG PO SCH (07:41)
[2018-12-03] MEDS: Ferrous Gluconate TAB* 324 MG TAB PO SCH (07:41)
[2018-12-03 07:42] LABS: Calcium 8.6 mg/dL (8.6-10.3); Magnesium 2.4 mg/dL (1.9-2.7); Potassium 4.1 mmol/L (3.5-5.0)
[2018-12-03 07:48] LABS: BUN/Creatinine Ratio 20.5 (8-20); EGFR Non-African American 157.7 (>60)
--- NOTE | 2018-12-03 19:10 | PN ---
Subjective Date of Service: 12/03/18 Interval History: patient reports that she is felling a little better to day. reports that her breathing is improving. denies fever or chills, denies chest pain or shortness of breath denies abd pain n/v/d/ Family History: Unchanged from Admission Social History: Unchanged from Admission Past Medical History: Unchanged from Admission Objective Active Medications: Acetaminophen (Tylenol Tab*) 650 mg PO Q4H PRN PRN Reason: FEVER/PAIN Albuterol (Ventolin Hfa Inhaler*) 1 puff INH RT.[id number] AWAKE PRN PRN Reason: SHORTNESS OF BREATH Last Admin: 12/02/18 16:00 Dose: 1 puff Alprazolam (Xanax Tab*) 0.25 mg PO TID PRN PRN Reason: ANXIETY Last Admin: 12/03/18 09:24 Dose: 0.25 mg Budesonide (Pulmicort Neb*) 0.5 mg INH BID [facility] Last Admin: 12/03/18 07:25 Dose: 0.5 mg Docusate Sodium (Colace Cap*) 100 mg PO BID [facility] Last Admin: 12/03/18 07:41 Dose: 100 mg Famotidine (Pepcid Tab*) 10 mg PO BID PRN PRN Reason: INDIGESTION Ferrous Gluconate (Fergon Tab*) 324 mg PO DAILY [facility] Last Admin: 12/03/18 07:41 Dose: 324 mg Guaifenesin (Mucinex*) 600 mg PO BID [facility] Last Admin: 12/03/18 07:41 Dose: 600 mg Heparin Sodium (Porcine) (Heparin Vial(*)) 5,000 units SUBCUT Q8HR [facility] Last Admin: 12/03/18 16:29 Dose: 5,000 units Levalbuterol HCl (Xopenex 0.63mg/3ml Neb*) 0.63 mg INH [id number] AWAKE [facility] Last Admin: 12/03/18 12:49 Dose: 0.63 mg Loratadine (Claritin Tab(Nf)) 10 mg PO DAILY [facility] Last Admin: 12/03/18 07:40 Dose: 10 mg Montelukast Sodium (Singulair Tab*) 10 mg PO DAILY [facility] Last Admin: 12/03/18 07:41 Dose: 10 mg Morphine Sulfate (Morphine Inj ((Syringe))*) 2 mg IV Q4H PRN PRN Reason: air hunger Last Admin: 12/03/18 17:44 Dose: 2 mg Ondansetron HCl (Zofran Odt Tab*) 4 mg PO Q6HR PRN PRN Reason: NAUSEA/VOMITING Oxycodone/Acetaminophen (Percocet 5/325 Tab*) 1 tab PO Q6H PRN PRN Reason: PAIN Last Admin: 12/03/18 03:11 Dose: 1 tab Pantoprazole Sodium (Protonix Tab (Nf)) 40 mg PO DAILY [facility] Last Admin: 12/03/18 07:41 Dose: 40 mg Prednisone (Deltasone Tab*) 50 mg PO DAILY [facility] Last Admin: 12/03/18 07:41 Dose: 50 mg Sodium Chloride (Sodium Chloride 0.65% Nasal [place]*) 1 spray BOTH NARES BID PRN PRN Reason: PER PROTOCOL Last Admin: 12/03/18 16:33 Dose: 1 spray Tiotropium [place] (Spiriva Cap.Inh*) 1 cap INH DAILY [facility] Last Admin: 12/03/18 07:25 Dose: 1 cap Vital Signs - 8 hr 12/03/18 12/03/18 12/03/18 11:10 11:44 12:50 Temperature 98.4 F Pulse Rate 104 92 Respiratory 22 22 18 Rate Blood Pressure 145/76 (mmHg) O2 Sat by Pulse 100 98 Oximetry 12/03/18 12/03/18 12/03/18 13:12 15:29 16:40 Temperature 97.6 F Pulse Rate 105 Respiratory 20 18 Rate Blood Pressure 156/79 (mmHg) O2 Sat by Pulse 100 98 Oximetry 12/03/18 17:44 Temperature Pulse Rate Respiratory 20 Rate Blood Pressure (mmHg) O2 Sat by Pulse Oximetry Oxygen Devices in Use Now: Nasal Cannula Appearance: appears comfortable resting on the bed, no acute distress Eyes: No Scleral Icterus Ears/Nose/Mouth/Throat: Clear Oropharnyx, Mucous Membranes Moist Neck: NL Appearance and Movements; NL JVP, Trachea Midline Respiratory: Symmetrical Chest Expansion and Respiratory Effort, - - t/o bilat Cardiovascular: NL Sounds; No Murmurs; No JVD, No Edema Abdominal: NL Sounds; No Tenderness; No Distention Extremities: No Edema, No Clubbing, Cyanosis Skin: No Rash or Ulcers Neurological: Alert and Oriented x 3 Nutrition: Taking PO's - Nutrition: Malnutrition Diagnosis/Plan Malnutrition Assessment by Registered Dietitian: Malnutrition Assessment Clinical Characteristics Acute,Moderate Malnutrition Assessment: - Mild-moderate temporal muscle wasting Criteria - 7% wt loss x past 1.5 months - <75% or less of estimated energy needs > 7 days Malnutrition Assessment: - recommend liberalizing diet as able Interventions - will trial ensure clear w/ lunch this afternoon (240 kcals, 8 grams of protein) Malnutrition Assessment: Goals 1. Adequate PO intake to promote lean body mass and overall wt repletion while maintaining adequate hydration Result Diagrams: 12/01/18 08:49 12/03/18 06:58 Microbiology and Other Data: Microbiology 12/01/18 08:41 Aerobic Blood Culture - Preliminary Blood Venous No Growth Day 1 Anaerobic Blood Culture - Final Not Reportable 12/01/18 08:48 Aerobic Blood Culture - Preliminary Blood Venous No Growth Day 1 Anaerobic Blood Culture - Preliminary No Growth Day 1 Assess/Plan/Problems-Billing Assessment: Ms Gomez is a 83 y.o female with past medical hx significant for COPD, anxiety - Patient Problems (1) COPD exacerbation Current Visit: No Status: Acute Code(s): J44.1 - CHRONIC OBSTRUCTIVE PULMONARY DISEASE W (ACUTE) EXACERBATION SNOMED Code(s): 808578972 Comment: - remains short of breath - improving - Poor reserve; pain and anxiety amplify symptoms - - Continue nebs and prednisone and home inhalers - patient finished z-justin yesterday - will hold on further antibiotic at this time (2) Anxiety Current Visit: No Status: Acute Code(s): F41.9 - ANXIETY DISORDER, UNSPECIFIED SNOMED Code(s): 70102401 Comment: - Continue PRN Xanax (3) Malnutrition Current Visit: Yes Status: Acute Code(s): E46 - UNSPECIFIED PROTEIN-CALORIE MALNUTRITION SNOMED Code(s): 65515881 Comment: Patient with mild to moderate temporal wasting - will liberalize patient's diet - will ad ensure clears as per recommendations (4) Compression fracture Current Visit: No Status: Acute Code(s): NDZ8437 - SNOMED Code(s): 317314958 Comment: - T9 fracture noted in 11/04 - continue brace for comfort (5) DVT prophylaxis Current Visit: No Status: Acute Code(s): SKT5515 - SNOMED Code(s): 768922062 Comment: heparin sub q (6) Full code status Current Visit: No Status: Acute Code(s): Z78.9 - OTHER SPECIFIED HEALTH STATUS SNOMED Code(s): 828234292 Comment: (7) Aortic stenosis Current Visit: No Status: Acute Code(s): I35.0 - NONRHEUMATIC AORTIC (VALVE ) STENOSIS SNOMED Code(s): 32464592 Comment: - stable (8) Iron deficiency anemia Current Visit: No Status: Acute Code(s): D50.9 - IRON DEFICIENCY ANEMIA, UNSPECIFIED SNOMED Code(s): 99217376 Comment: - HH stable will continue iron supplementation Status and Disposition: inpatient
[2018-12-04] MEDS: Levalbuterol 0.63MG/3ML NEB* UNIT OF USE INH SCH ×4 (01:51→19:34)
[2018-12-04] MEDS: ALPRAZolam TAB* 0.25 MG PO PRN ×2 (02:14→08:03)
[2018-12-04] MEDS: Albuterol HFA INHALER* 8 gm MDI INH PRN ×2 (05:45→07:25)
[2018-12-04] MEDS: Heparin VIAL(*) 5000 UNITS/ML VIAL (FIVE THOUSAND) SUBCUT SCH ×3 (05:45→20:46)
[2018-12-04] MEDS: Morphine INJ* 2 MG/ML 1 ML SYRINGE (TWO MG - NEW SYRINGE VERSION) IV PRN ×2 (05:45→16:34)
[2018-12-04] MEDS: Tiotropium CAP.INH* CAP.INH/18 MCG (USE ORDER SET !) INH SCH (07:25)
[2018-12-04] MEDS: Budesonide NEB* 0.5 MG/2 ML NEB.SOLN INH SCH ×2 (07:31→19:34)
[2018-12-04] MEDS: predniSONE TAB* 50 MG PO SCH (08:03)
[2018-12-04] MEDS: Montelukast Sodium TAB* 10 MG PO SCH (08:03)
[2018-12-04] MEDS: CMC:LoraTADine TAB(NF) 10 MG TAB PO SCH (08:03)
[2018-12-04] MEDS: Ferrous Gluconate TAB* 324 MG TAB PO SCH (08:03)
[2018-12-04] MEDS: guaiFENesin ER TAB 600 MG PO SCH ×2 (08:03→20:45)
[2018-12-04] MEDS: Docusate CAP* 100 MG PO SCH ×2 (08:03→20:45)
[2018-12-04] MEDS: Pantoprazole TAB * 40 MG TAB PO SCH (08:04)
[2018-12-04] MEDS: Saline NASAL SPRAY 0.65%* BTL BOTH NARES PRN (10:27)
[2018-12-04] MEDS: ALPRAZolam TAB* 0.25 MG PO SCH ×3 (14:23→20:44)
[2018-12-04] MEDS: Sertraline* 25 MG TAB PO SCH (16:34)
[2018-12-04] MEDS: oxyCODONE/Acetamin 5/325 MG* TAB PO PRN (21:07)
[2018-12-05] MEDS: Morphine INJ* 2 MG/ML 1 ML SYRINGE (TWO MG - NEW SYRINGE VERSION) IV PRN ×2 (01:17→06:13)
[2018-12-05] MEDS: Levalbuterol 0.63MG/3ML NEB* UNIT OF USE INH SCH ×4 (01:20→19:21)
[2018-12-05] MEDS: Ondansetron ODT TAB* 4 MG PO PRN (01:29)
[2018-12-05] MEDS: Saline NASAL SPRAY 0.65%* BTL BOTH NARES PRN (01:29)
[2018-12-05] MEDS: Albuterol HFA INHALER* 8 gm MDI INH PRN (04:19)
[2018-12-05] MEDS: Heparin VIAL(*) 5000 UNITS/ML VIAL (FIVE THOUSAND) SUBCUT SCH ×3 (06:26→20:52)
[2018-12-05] MEDS: Tiotropium CAP.INH* CAP.INH/18 MCG (USE ORDER SET !) INH SCH (07:02)
[2018-12-05] MEDS: Budesonide NEB* 0.5 MG/2 ML NEB.SOLN INH SCH ×2 (07:02→19:21)
[2018-12-05 07:41] LABS: Hematocrit 35 % (35-47); Hemoglobin 11.7 g/dl (12.0-16.0); Mean Corpuscular HGB Conc 33 g/dl (31-36); Mean Corpuscular Hemoglobin 30 pg (27-31); Mean Corpuscular Volume 90 fL (80-97); Mean Platelet Volume 7.2 fL (7.4-10.4); Platelet Count 305 10^3/ul (150-450); Red Blood Count 3.89 10^6/ul (4.00-5.40); Red Cell Distribution Width 15 % (10.5-15); White Blood Count 5.9 10^3/ul (3.5-10.8)
[2018-12-05 07:52] LABS: BUN/Creatinine Ratio 29.8 (8-20); Calcium 9.4 mg/dL (8.6-10.3); EGFR Non-African American 127.2 (>60); Potassium 4.4 mmol/L (3.5-5.0)
[2018-12-05] MEDS: ALPRAZolam TAB* 0.25 MG PO SCH ×4 (08:10→20:51)
[2018-12-05] MEDS: guaiFENesin ER TAB 600 MG PO SCH ×2 (08:10→20:52)
[2018-12-05] MEDS: predniSONE TAB* 50 MG PO SCH (08:11)
[2018-12-05] MEDS: Docusate CAP* 100 MG PO SCH ×2 (08:11→20:52)
[2018-12-05] MEDS: Montelukast Sodium TAB* 10 MG PO SCH (08:11)
[2018-12-05] MEDS: Ferrous Gluconate TAB* 324 MG TAB PO SCH (08:11)
[2018-12-05] MEDS: CMC:LoraTADine TAB(NF) 10 MG TAB PO SCH (08:11)
[2018-12-05] MEDS: Pantoprazole TAB * 40 MG TAB PO SCH (08:11)
[2018-12-05] MEDS: Sertraline* 25 MG TAB PO SCH (08:11)
[2018-12-05] MEDS: Polyethyl Glycol/Propylene Gly OPHTH.SOLN BOTH EYES SCH ×2 (08:12→14:41)
[2018-12-05] MEDS ORDERED: Morphine INJ* 2 MG/ML 1 ML SYRINGE (TWO MG - NEW SYRINGE VERSION) IV PRN (10:40)
[2018-12-05] MEDS ORDERED: THEOPHYLLINE TAB.SA* 200 MG PO ONE (12:53)
[2018-12-05] MEDS ORDERED: Polyethylene Glycol 3350* 17 GM PACKET PO PRN (17:44)
--- NOTE | 2018-12-05 22:16 | PN ---
Subjective Date of Service: 12/05/18 Interval History: Patient reports that she continues to feel short of breath. Patient reports that she feels scared when she is alone and then she feels her breathing becomes worse. Denies chest pain. Denies fever or chills, denies abd pain n/v/ d. Noted to have a carbon dioxide level of 43. today ABD was obtained and PCo2 was 76 , oxygen was decreased to maintain o2 sats between 88-92 %. Patient was given 1 dose of theophylline po. Morphine stopped, xanax decreased to TID. Repeat ABG at 1600 showed improvement , patient reports breathing has improved - will continue to titrate o2 to maintain o2 saturations between 88-92%. Family History: Unchanged from Admission Social History: Unchanged from Admission Past Medical History: Unchanged from Admission Objective Active Medications: Acetaminophen (Tylenol Tab*) 650 mg PO Q4H PRN PRN Reason: FEVER/PAIN Albuterol (Ventolin Hfa Inhaler*) 1 puff INH [id number] AWAKE PRN PRN Reason: SHORTNESS OF BREATH Last Admin: 12/05/18 04:19 Dose: 1 puff Alprazolam (Xanax Tab*) 0.25 mg PO TID [facility] Last Admin: 12/05/18 20:51 Dose: 0.25 mg Budesonide (Pulmicort Neb*) 0.5 mg INH BID [facility] Last Admin: 12/05/18 19:21 Dose: 0.5 mg Docusate Sodium (Colace Cap*) 100 mg PO BID [facility] Last Admin: 12/05/18 20:52 Dose: 100 mg Famotidine (Pepcid Tab*) 10 mg PO BID PRN PRN Reason: INDIGESTION Ferrous Gluconate (Fergon Tab*) 324 mg PO DAILY [facility] Last Admin: 12/05/18 08:11 Dose: 324 mg Guaifenesin (Mucinex*) 600 mg PO BID [facility] Last Admin: 12/05/18 20:52 Dose: 600 mg Heparin Sodium (Porcine) (Heparin Vial(*)) 5,000 units SUBCUT Q8HR [facility] Last Admin: 12/05/18 20:52 Dose: 5,000 units Levalbuterol HCl (Xopenex 0.63mg/3ml Neb*) 0.63 mg INH [id number] AWAKE [facility] Last Admin: 12/05/18 19:21 Dose: 0.63 mg Loratadine (Claritin Tab(Nf)) 10 mg PO DAILY [facility] Last Admin: 12/05/18 08:11 Dose: 10 mg Montelukast Sodium (Singulair Tab*) 10 mg PO DAILY [facility] Last Admin: 12/05/18 08:11 Dose: 10 mg Ondansetron HCl (Zofran Odt Tab*) 4 mg PO Q6HR PRN PRN Reason: NAUSEA/VOMITING Last Admin: 12/05/18 01:29 Dose: 4 mg Oxycodone/Acetaminophen (Percocet 5/325 Tab*) 1 tab PO Q6H PRN PRN Reason: PAIN Last Admin: 12/04/18 21:07 Dose: 1 tab Pantoprazole Sodium (Protonix Tab (Nf)) 40 mg PO DAILY [facility] Last Admin: 12/05/18 08:11 Dose: 40 mg Polyethyl Glycol/Propylene Glycol (Lubricant Eye Drops) 1 drop BOTH EYES DAILY [facility] Last Admin: 12/05/18 14:41 Dose: 1 drop Polyethylene Glycol/Electrolytes (Miralax*) 17 gm PO DAILY PRN PRN Reason: CONSTIPATION Prednisone (Deltasone Tab*) 50 mg PO DAILY [facility] Last Admin: 12/05/18 08:11 Dose: 50 mg Sertraline HCl (Zoloft*) 25 mg PO DAILY [facility] Last Admin: 12/05/18 08:11 Dose: 25 mg Sodium Chloride (Sodium Chloride 0.65% Nasal [place]*) 1 spray BOTH NARES BID PRN PRN Reason: PER PROTOCOL Last Admin: 12/05/18 01:29 Dose: 1 spray Tiotropium [place] (Spiriva Cap.Inh*) 1 cap INH DAILY [facility] Last Admin: 12/05/18 07:02 Dose: 1 cap Vital Signs - 8 hr 12/05/18 12/05/18 12/05/18 15:34 15:54 16:29 Temperature 98.4 F Pulse Rate 90 Respiratory 22 20 Rate Blood Pressure 145/70 (mmHg) O2 Sat by Pulse 97 98 Oximetry 12/05/18 12/05/18 12/05/18 19:09 19:23 20:51 Temperature 98.2 F Pulse Rate 86 87 Respiratory 26 14 28 Rate Blood Pressure 149/80 (mmHg) O2 Sat by Pulse 97 98 Oximetry Oxygen Devices in Use Now: Nasal Cannula Appearance: alert , mild respiratory distress Eyes: No Scleral Icterus Ears/Nose/Mouth/Throat: Clear Oropharnyx, Mucous Membranes Moist Neck: NL Appearance and Movements; NL JVP, Trachea Midline Respiratory: Symmetrical Chest Expansion and Respiratory Effort, Clear to Auscultation, - - diminished t/o bilat Cardiovascular: NL Sounds; No Murmurs; No JVD, No Edema Abdominal: NL Sounds; No Tenderness; No Distention Extremities: No Edema, No Clubbing, Cyanosis Skin: No Rash or Ulcers Neurological: Alert and Oriented x 3 Nutrition: Taking PO's - Nutrition: Malnutrition Diagnosis/Plan Malnutrition Assessment by Registered Dietitian: Malnutrition Assessment Clinical Characteristics Acute,Moderate Malnutrition Assessment: - Mild-moderate temporal muscle wasting Criteria - 7% wt loss x past 1.5 months - <75% or less of estimated energy needs > 7 days Malnutrition Assessment: - recommend liberalizing diet as able Interventions - will trial ensure clear w/ lunch this afternoon (240 kcals, 8 grams of protein) Malnutrition Assessment: Goals 1. Adequate PO intake to promote lean body mass and overall wt repletion while maintaining adequate hydration Result Diagrams: 12/05/18 07:28 12/05/18 07:28 Microbiology and Other Data: Microbiology 12/01/18 08:41 Aerobic Blood Culture - Preliminary Blood Venous No Growth Day 1 Anaerobic Blood Culture - Final Not Reportable 12/01/18 08:48 Aerobic Blood Culture - Preliminary Blood Venous No Growth Day 1 Anaerobic Blood Culture - Preliminary No Growth Day 1 Assess/Plan/Problems-Billing Assessment: Ms Gomez is a 83 y.o female with past medical hx significant for COPD, anxiety - Patient Problems (1) COPD exacerbation Current Visit: No Status: Acute Code(s): J44.1 - CHRONIC OBSTRUCTIVE PULMONARY DISEASE W (ACUTE) EXACERBATION SNOMED Code(s): 103558446 Comment: Acute on chronic Hypoxic respiratory failure - remains short of breath - improving slowly - Poor reserve; pain and anxiety amplify symptoms - - Continue nebs and prednisone and home inhalers - patient finished z-justin prior to admission - will hold on further antibiotic at this time - carbon dioxide 43 - ABG PCO2 76 - morphine stopped, xanax decreased to TID, O2 decreased to maintain o2 saturations 88-92% - will repeat BMP in the AM (2) Anxiety Current Visit: No Status: Acute Code(s): F41.9 - ANXIETY DISORDER, UNSPECIFIED SNOMED Code(s): 66689964 Comment: - Continue PRN Xanax - patient reports that she feels very anxious in the moring when waking and then symptoms improve throughtout the day - will continue zoloft which was started yesterday (3) Malnutrition Current Visit: Yes Status: Acute Code(s): E46 - UNSPECIFIED PROTEIN-CALORIE MALNUTRITION SNOMED Code(s): 56203618 Comment: Patient with mild to moderate temporal wasting - will liberalize patient's diet - will ad ensure clears as per recommendations (4) Compression fracture Current Visit: No Status: Acute Code(s): FOQ0094 - SNOMED Code(s): 090017227 Comment: - T9 fracture noted in 11/04 - continue brace for comfort (5) DVT prophylaxis Current Visit: No Status: Acute Code(s): RNJ5127 - SNOMED Code(s): 592828851 Comment: heparin sub q (6) Aortic stenosis Current Visit: No Status: Acute Code(s): I35.0 - NONRHEUMATIC AORTIC (VALVE ) STENOSIS SNOMED Code(s): 43117793 Comment: - stable (7) Iron deficiency anemia Current Visit: No Status: Acute Code(s): D50.9 - IRON DEFICIENCY ANEMIA, UNSPECIFIED SNOMED Code(s): 54790116 Comment: - HH stable will continue iron supplementation (8) Full code status Current Visit: No Status: Acute Code(s): Z78.9 - OTHER SPECIFIED HEALTH STATUS SNOMED Code(s): 400087832 Comment: Status and Disposition: inpatient - discharge home when medically stable
[2018-12-06] MEDS ORDERED: ALPRAZolam TAB* 0.25 MG PO ONE (00:33)
[2018-12-06] MEDS: Levalbuterol 0.63MG/3ML NEB* UNIT OF USE INH SCH ×4 (01:23→19:13)
--- NOTE | 2018-12-06 03:17 | PN ---
Hospitalist Progress Note Date of Service: 12/06/18 HOSPITALIST ADDENDUM Called by RN - SBP>200 now, asymptomatic. BP has been elevated throughout hospital stay. Will give Amlodipine 5 mg x 1 dose now. May need further antihypertensives added/adjusted during hospital stay.
[2018-12-06] MEDS ORDERED: amLODIPine TAB* 5 MG ONE (03:19)
[2018-12-06] MEDS: amLODIPine TAB* 5 MG PO ONE ×2 (03:24)
[2018-12-06] MEDS: Saline NASAL SPRAY 0.65%* BTL BOTH NARES PRN (03:29)
[2018-12-06] MEDS: Albuterol HFA INHALER* 8 gm MDI INH PRN (03:43)
[2018-12-06] MEDS: Heparin VIAL(*) 5000 UNITS/ML VIAL (FIVE THOUSAND) SUBCUT SCH ×3 (05:45→21:25)
[2018-12-06] MEDS ORDERED: Morphine INJ* 2 MG/ML 1 ML SYRINGE (TWO MG - NEW SYRINGE VERSION) IV ONE (06:03)
[2018-12-06] MEDS ORDERED: Morphine INJ* 2 MG/ML 1 ML SYRINGE (TWO MG - NEW SYRINGE VERSION) ONE (06:22)
[2018-12-06 07:39] LABS: BUN/Creatinine Ratio 26.2 (8-20); Calcium 9.6 mg/dL (8.6-10.3); EGFR Non-African American 144.8 (>60); Potassium 3.8 mmol/L (3.5-5.0)
[2018-12-06] MEDS: ALPRAZolam TAB* 0.25 MG PO SCH ×3 (07:49→20:27)
[2018-12-06] MEDS: Budesonide NEB* 0.5 MG/2 ML NEB.SOLN INH SCH ×2 (08:03→19:15)
[2018-12-06] MEDS: Tiotropium CAP.INH* CAP.INH/18 MCG (USE ORDER SET !) INH SCH (08:03)
[2018-12-06] MEDS: guaiFENesin ER TAB 600 MG PO SCH ×2 (09:02→20:27)
[2018-12-06] MEDS: CMC:LoraTADine TAB(NF) 10 MG TAB PO SCH (09:02)
[2018-12-06] MEDS: predniSONE TAB* 50 MG PO SCH (09:03)
[2018-12-06] MEDS: Ferrous Gluconate TAB* 324 MG TAB PO SCH (09:03)
[2018-12-06] MEDS: Polyethyl Glycol/Propylene Gly OPHTH.SOLN BOTH EYES SCH (09:03)
[2018-12-06] MEDS: Pantoprazole TAB * 40 MG TAB PO SCH (09:03)
[2018-12-06] MEDS: Docusate CAP* 100 MG PO SCH ×2 (09:03→20:27)
[2018-12-06] MEDS: Montelukast Sodium TAB* 10 MG PO SCH (09:03)
[2018-12-06] MEDS: Sertraline* 25 MG TAB PO SCH (09:03)
--- NOTE | 2018-12-06 19:32 | PN ---
Subjective Date of Service: 12/06/18 Interval History: Reports some improvement in breathing Family History: Unchanged from Admission Social History: Unchanged from Admission Past Medical History: Unchanged from Admission Objective Active Medications: Acetaminophen (Tylenol Tab*) 650 mg PO Q4H PRN PRN Reason: FEVER/PAIN Albuterol (Ventolin Hfa Inhaler*) 1 puff INH RT.[id number] AWAKE PRN PRN Reason: SHORTNESS OF BREATH Last Admin: 12/06/18 03:43 Dose: 1 puff Alprazolam (Xanax Tab*) 0.25 mg PO TID [facility] Last Admin: 12/06/18 13:30 Dose: 0.25 mg Budesonide (Pulmicort Neb*) 0.5 mg INH BID [facility] Last Admin: 12/06/18 19:15 Dose: Not Given Docusate Sodium (Colace Cap*) 100 mg PO BID [facility] Last Admin: 12/06/18 09:03 Dose: 100 mg Famotidine (Pepcid Tab*) 10 mg PO BID PRN PRN Reason: INDIGESTION Ferrous Gluconate (Fergon Tab*) 324 mg PO DAILY [facility] Last Admin: 12/06/18 09:03 Dose: 324 mg Guaifenesin (Mucinex*) 600 mg PO BID [facility] Last Admin: 12/06/18 09:02 Dose: 600 mg Heparin Sodium (Porcine) (Heparin Vial(*)) 5,000 units SUBCUT Q8HR [facility] Last Admin: 12/06/18 13:30 Dose: 5,000 units Levalbuterol HCl (Xopenex 0.63mg/3ml Neb*) 0.63 mg INH [id number] AWAKE [facility] Last Admin: 12/06/18 19:13 Dose: Not Given Loratadine (Claritin Tab(Nf)) 10 mg PO DAILY [facility] Last Admin: 12/06/18 09:02 Dose: 10 mg Montelukast Sodium (Singulair Tab*) 10 mg PO DAILY [facility] Last Admin: 12/06/18 09:03 Dose: 10 mg Ondansetron HCl (Zofran Odt Tab*) 4 mg PO Q6HR PRN PRN Reason: NAUSEA/VOMITING Last Admin: 12/05/18 01:29 Dose: 4 mg Oxycodone/Acetaminophen (Percocet 5/325 Tab*) 1 tab PO Q6H PRN PRN Reason: PAIN Last Admin: 12/04/18 21:07 Dose: 1 tab Pantoprazole Sodium (Protonix Tab (Nf)) 40 mg PO DAILY [facility] Last Admin: 12/06/18 09:03 Dose: 40 mg Polyethyl Glycol/Propylene Glycol (Lubricant Eye Drops) 1 drop BOTH EYES DAILY [facility] Last Admin: 12/06/18 09:03 Dose: 1 drop Polyethylene Glycol/Electrolytes (Miralax*) 17 gm PO DAILY PRN PRN Reason: CONSTIPATION Prednisone (Deltasone Tab*) 50 mg PO DAILY [facility] Last Admin: 12/06/18 09:03 Dose: 50 mg Sertraline HCl (Zoloft*) 25 mg PO DAILY [facility] Last Admin: 12/06/18 09:03 Dose: 25 mg Sodium Chloride (Sodium Chloride 0.65% Nasal [place]*) 1 spray BOTH NARES BID PRN PRN Reason: PER PROTOCOL Last Admin: 12/06/18 03:29 Dose: 1 spray Tiotropium [place] (Spiriva Cap.Inh*) 1 cap INH DAILY [facility] Last Admin: 12/06/18 08:03 Dose: 1 cap Vital Signs - 8 hr 12/06/18 12/06/18 12/06/18 13:30 13:37 15:35 Temperature Pulse Rate 105 Respiratory 18 20 20 Rate Blood Pressure (mmHg) O2 Sat by Pulse 98 Oximetry 12/06/18 15:41 Temperature 98.1 F Pulse Rate 115 Respiratory 20 Rate Blood Pressure 149/79 (mmHg) O2 Sat by Pulse 95 Oximetry Oxygen Devices in Use Now: Nasal Cannula Ears/Nose/Mouth/Throat: NL Teeth, Lips, Gums Neck: NL Appearance and Movements; NL JVP Respiratory: Symmetrical Chest Expansion and Respiratory Effort, - - Bronchial Breath sounds Cardiovascular: RRR Abdominal: NL Sounds; No Tenderness; No Distention Extremities: No Edema Skin: No Rash or Ulcers Neurological: Alert and Oriented x 3 - Nutrition: Malnutrition Diagnosis/Plan Malnutrition Assessment by Registered Dietitian: Malnutrition Assessment Clinical Characteristics Acute,Moderate Malnutrition Assessment: - Mild-moderate temporal muscle wasting Criteria - 7% wt loss x past 1.5 months - <75% or less of estimated energy needs > 7 days Malnutrition Assessment: - recommend liberalizing diet as able Interventions - will trial ensure clear w/ lunch this afternoon (240 kcals, 8 grams of protein) Malnutrition Assessment: Goals 1. Adequate PO intake to promote lean body mass and overall wt repletion while maintaining adequate hydration Result Diagrams: 12/05/18 07:28 12/06/18 06:54 Microbiology and Other Data: Microbiology 12/01/18 08:41 Aerobic Blood Culture - Preliminary Blood Venous No Growth Day 1 Anaerobic Blood Culture - Final Not Reportable 12/01/18 08:48 Aerobic Blood Culture - Preliminary Blood Venous No Growth Day 1 Anaerobic Blood Culture - Preliminary No Growth Day 1 Assess/Plan/Problems-Billing Assessment: Ms Gomez is a 83 y.o female with past medical hx significant for COPD, anxiety - Patient Problems (1) COPD exacerbation Current Visit: No Status: Acute Code(s): J44.1 - CHRONIC OBSTRUCTIVE PULMONARY DISEASE W (ACUTE) EXACERBATION SNOMED Code(s): 147321201 Comment: Acute on chronic Hypoxic respiratory failure - remains short of breath - improving slowly - Poor reserve; pain and anxiety amplify symptoms - - Continue nebs and prednisone and home inhalers - patient finished z-justin prior to admission - will hold on further antibiotic at this time - carbon dioxide 43 - ABG PCO2 76 - morphine stopped, xanax decreased to TID, O2 decreased to maintain o2 saturations 88-92% - will repeat BMP in the AM (2) Anxiety Current Visit: No Status: Acute Code(s): F41.9 - ANXIETY DISORDER, UNSPECIFIED SNOMED Code(s): 21572091 Comment: - Continue PRN Xanax - patient reports that she feels very anxious in the moring when waking and then symptoms improve throughtout the day - will continue zoloft which was started yesterday (3) Malnutrition Current Visit: Yes Status: Acute Code(s): E46 - UNSPECIFIED PROTEIN-CALORIE MALNUTRITION SNOMED Code(s): 59409738 Comment: Patient with mild to moderate temporal wasting - will liberalize patient's diet - will ad ensure clears as per recommendations (4) Aortic stenosis Current Visit: No Status: Acute Code(s): I35.0 - NONRHEUMATIC AORTIC (VALVE ) STENOSIS SNOMED Code(s): 48056730 Comment: - stable (5) Compression fracture Current Visit: No Status: Acute Code(s): RAO7843 - SNOMED Code(s): 393150404 Comment: - T9 fracture noted in 11/04 - continue brace for comfort (6) DVT prophylaxis Current Visit: No Status: Acute Code(s): UVX9261 - SNOMED Code(s): 591914808 Comment: heparin sub q (7) Iron deficiency anemia Current Visit: No Status: Acute Code(s): D50.9 - IRON DEFICIENCY ANEMIA, UNSPECIFIED SNOMED Code(s): 97277291 Comment: - HH stable will continue iron supplementation
[2018-12-06] MEDS: Ondansetron ODT TAB* 4 MG PO PRN (23:30)
[2018-12-07] MEDS ORDERED: amLODIPine TAB* 5 MG PO ONE (00:21)
--- NOTE | 2018-12-07 00:22 | PN ---
Hospitalist Progress Note Date of Service: 12/07/18 HOSPITALIST ADDENDUM Similar to last night, I was called by RN for SBP>200, still asymptomatic. BP has been elevated throughout hospital stay. Will give Amlodipine 5 mg x 1 dose now. Needs further antihypertensives added/adjusted during hospital stay.
[2018-12-07] MEDS ORDERED: ALPRAZolam TAB* 0.25 MG PO ONE (00:59)
[2018-12-07] MEDS: Levalbuterol 0.63MG/3ML NEB* UNIT OF USE INH SCH ×4 (01:20→19:57)
[2018-12-07] MEDS: Heparin VIAL(*) 5000 UNITS/ML VIAL (FIVE THOUSAND) SUBCUT SCH ×3 (04:57→21:54)
[2018-12-07] MEDS: Saline NASAL SPRAY 0.65%* BTL BOTH NARES PRN (05:06)
[2018-12-07 07:05] LABS: ABS Basophils 0 10^3/ul (0-0.2); ABS Eosinophils 0 10^3/ul (0-0.6); ABS Lymphocytes 1.6 10^3/ul (1.0-4.8); ABS Monocytes 0.9 10^3/ul (0-0.8); ABS Neutrophils 5.2 10^3/ul (1.5-7.7); ABS Nucleated RBC 0 10^3/ul; Eosinophil % 0.3 %; Hematocrit 37 % (35-47); Hemoglobin 12.2 g/dl (12.0-16.0); Lymphocyte % 20.3 %; Mean Corpuscular HGB Conc 33 g/dl (31-36); Mean Corpuscular Hemoglobin 30 pg (27-31); Mean Corpuscular Volume 88 fL (80-97); Mean Platelet Volume 7.7 fL (7.4-10.4); Nucleated Red Blood Cells % 0; Platelet Count 352 10^3/ul (150-450); Red Blood Count 4.15 10^6/ul (4.00-5.40); Red Cell Distribution Width 14 % (10.5-15); White Blood Count 7.7 10^3/ul (3.5-10.8)
[2018-12-07 07:22] LABS: BUN/Creatinine Ratio 26.8 (8-20); Calcium 9.7 mg/dL (8.6-10.3); EGFR Non-African American 148.9 (>60); Potassium 3.8 mmol/L (3.5-5.0)
[2018-12-07] MEDS: Budesonide NEB* 0.5 MG/2 ML NEB.SOLN INH SCH ×2 (07:40→19:57)
[2018-12-07] MEDS: Tiotropium CAP.INH* CAP.INH/18 MCG (USE ORDER SET !) INH SCH (07:40)
[2018-12-07] MEDS: CMC:LoraTADine TAB(NF) 10 MG TAB PO SCH (07:43)
[2018-12-07] MEDS: Pantoprazole TAB * 40 MG TAB PO SCH (07:43)
[2018-12-07] MEDS: ALPRAZolam TAB* 0.25 MG PO SCH ×3 (07:43→20:51)
[2018-12-07] MEDS: Docusate CAP* 100 MG PO SCH ×2 (07:43→21:02)
[2018-12-07] MEDS: Polyethyl Glycol/Propylene Gly OPHTH.SOLN BOTH EYES SCH (07:43)
[2018-12-07] MEDS: predniSONE TAB* 50 MG PO SCH (07:43)
[2018-12-07] MEDS: Sertraline* 25 MG TAB PO SCH (07:43)
[2018-12-07] MEDS: guaiFENesin ER TAB 600 MG PO SCH ×2 (07:43→21:01)
[2018-12-07] MEDS: Ferrous Gluconate TAB* 324 MG TAB PO SCH (07:43)
[2018-12-07] MEDS: Montelukast Sodium TAB* 10 MG PO SCH (07:45)
--- NOTE | 2018-12-07 14:34 | PN ---
Subjective Date of Service: 12/07/18 Interval History: Reports some improvement in breathing.Has good and bad days Family History: Unchanged from Admission Social History: Unchanged from Admission Past Medical History: Unchanged from Admission Objective Active Medications: Acetaminophen (Tylenol Tab*) 650 mg PO Q4H PRN PRN Reason: FEVER/PAIN Last Admin: 12/07/18 04:57 Dose: 650 mg Albuterol (Ventolin Hfa Inhaler*) 1 puff INH RT.[id number] AWAKE PRN PRN Reason: SHORTNESS OF BREATH Last Admin: 12/06/18 03:43 Dose: 1 puff Alprazolam (Xanax Tab*) 0.25 mg PO TID [facility] Last Admin: 12/07/18 13:23 Dose: 0.25 mg Budesonide (Pulmicort Neb*) 0.5 mg INH BID [facility] Last Admin: 12/07/18 07:40 Dose: 0.5 mg Docusate Sodium (Colace Cap*) 100 mg PO BID [facility] Last Admin: 12/07/18 07:43 Dose: 100 mg Famotidine (Pepcid Tab*) 10 mg PO BID PRN PRN Reason: INDIGESTION Ferrous Gluconate (Fergon Tab*) 324 mg PO DAILY [facility] Last Admin: 12/07/18 07:43 Dose: 324 mg Guaifenesin (Mucinex*) 600 mg PO BID [facility] Last Admin: 12/07/18 07:43 Dose: 600 mg Heparin Sodium (Porcine) (Heparin Vial(*)) 5,000 units SUBCUT Q8HR [facility] Last Admin: 12/07/18 13:23 Dose: 5,000 units Levalbuterol HCl (Xopenex 0.63mg/3ml Neb*) 0.63 mg INH [id number] AWAKE [facility] Last Admin: 12/07/18 12:52 Dose: 0.63 mg Loratadine (Claritin Tab(Nf)) 10 mg PO DAILY [facility] Last Admin: 12/07/18 07:43 Dose: 10 mg Montelukast Sodium (Singulair Tab*) 10 mg PO DAILY [facility] Last Admin: 12/07/18 07:45 Dose: 10 mg Ondansetron HCl (Zofran Odt Tab*) 4 mg PO Q6HR PRN PRN Reason: NAUSEA/VOMITING Last Admin: 12/06/18 23:30 Dose: 4 mg Oxycodone/Acetaminophen (Percocet 5/325 Tab*) 1 tab PO Q6H PRN PRN Reason: PAIN Last Admin: 12/04/18 21:07 Dose: 1 tab Pantoprazole Sodium (Protonix Tab (Nf)) 40 mg PO DAILY [facility] Last Admin: 12/07/18 07:43 Dose: 40 mg Polyethyl Glycol/Propylene Glycol (Lubricant Eye Drops) 1 drop BOTH EYES DAILY [facility] Last Admin: 12/07/18 07:43 Dose: 1 drop Polyethylene Glycol/Electrolytes (Miralax*) 17 gm PO DAILY PRN PRN Reason: CONSTIPATION Prednisone (Deltasone Tab*) 40 mg PO DAILY [facility] Sertraline HCl (Zoloft*) 25 mg PO DAILY [facility] Last Admin: 12/07/18 07:43 Dose: 25 mg Sodium Chloride (Sodium Chloride 0.65% Nasal [place]*) 1 spray BOTH NARES BID PRN PRN Reason: PER PROTOCOL Last Admin: 12/07/18 05:06 Dose: 1 spray Tiotropium [place] (Spiriva Cap.Inh*) 1 cap INH DAILY [facility] Last Admin: 12/07/18 07:40 Dose: 1 cap Vital Signs - 8 hr 12/07/18 12/07/18 12/07/18 07:12 07:34 07:41 Temperature 98.1 F Pulse Rate 105 82 99 Respiratory 16 20 Rate Blood Pressure 151/76 (mmHg) O2 Sat by Pulse 98 99 Oximetry 12/07/18 12/07/18 12/07/18 07:43 07:47 09:49 Temperature Pulse Rate Respiratory 18 18 18 Rate Blood Pressure (mmHg) O2 Sat by Pulse Oximetry 12/07/18 12/07/18 12/07/18 11:52 12:05 12:52 Temperature 98.0 F Pulse Rate 111 105 Respiratory 22 18 Rate Blood Pressure 174/72 156/78 (mmHg) O2 Sat by Pulse 96 97 Oximetry 12/07/18 13:23 Temperature Pulse Rate Respiratory 18 Rate Blood Pressure (mmHg) O2 Sat by Pulse Oximetry Oxygen Devices in Use Now: Nasal Cannula Eyes: No Scleral Icterus Ears/Nose/Mouth/Throat: NL Teeth, Lips, Gums Neck: NL Appearance and Movements; NL JVP Respiratory: Symmetrical Chest Expansion and Respiratory Effort, - - Dec breath sounds bilaterally Cardiovascular: NL Sounds; No Murmurs; No JVD, RRR Abdominal: NL Sounds; No Tenderness; No Distention Extremities: No Edema Neurological: Alert and Oriented x 3 - Nutrition: Malnutrition Diagnosis/Plan Malnutrition Assessment by Registered Dietitian: Malnutrition Assessment Clinical Characteristics Acute,Moderate Malnutrition Assessment: - Mild-moderate temporal muscle wasting Criteria - 7% wt loss x past 1.5 months - <75% or less of estimated energy needs > 7 days Malnutrition Assessment: - recommend liberalizing diet as able Interventions - will trial ensure clear w/ lunch this afternoon (240 kcals, 8 grams of protein) Malnutrition Assessment: Goals 1. Adequate PO intake to promote lean body mass and overall wt repletion while maintaining adequate hydration Result Diagrams: 12/07/18 06:17 12/07/18 06:17 Microbiology and Other Data: Microbiology 12/01/18 08:41 Aerobic Blood Culture - Preliminary Blood Venous No Growth Day 1 Anaerobic Blood Culture - Final Not Reportable 12/01/18 08:48 Aerobic Blood Culture - Preliminary Blood Venous No Growth Day 1 Anaerobic Blood Culture - Preliminary No Growth Day 1 Assess/Plan/Problems-Billing Assessment: Ms Gomez is a 83 y.o female with past medical hx significant for COPD, anxiety - Patient Problems (1) COPD exacerbation Current Visit: No Status: Acute Code(s): J44.1 - CHRONIC OBSTRUCTIVE PULMONARY DISEASE W (ACUTE) EXACERBATION SNOMED Code(s): 179475724 Comment: Acute on chronic Hypoxic respiratory failure - remains short of breath - improving slowly - Poor reserve; pain and anxiety amplify symptoms - - Continue nebs and prednisone and home inhalers - patient finished z-justin prior to admission - will hold on further antibiotic at this time -morphine stopped, xanax decreased to TID, O2 decreased to maintain o2 saturations 88-92% -Prednisone tapering, reduced to 40 mg (2) Anxiety Current Visit: No Status: Acute Code(s): F41.9 - ANXIETY DISORDER, UNSPECIFIED SNOMED Code(s): 71267558 Comment: - Continue PRN Xanax - patient reports that she feels very anxious in the moring when waking and then symptoms improve throughtout the day - will continue zoloft which was started yesterday (3) Malnutrition Current Visit: Yes Status: Acute Code(s): E46 - UNSPECIFIED PROTEIN-CALORIE MALNUTRITION SNOMED Code(s): 00100446 Comment: Patient with mild to moderate temporal wasting - will liberalize patient's diet - will ad ensure clears as per recommendations (4) Aortic stenosis Current Visit: No Status: Acute Code(s): I35.0 - NONRHEUMATIC AORTIC (VALVE ) STENOSIS SNOMED Code(s): 55772287 Comment: - stable (5) Compression fracture Current Visit: No Status: Acute Code(s): SFM7869 - SNOMED Code(s): 853045121 Comment: - T9 fracture noted in 11/04 - continue brace for comfort (6) DVT prophylaxis Current Visit: No Status: Acute Code(s): DLP9558 - SNOMED Code(s): 226253584 Comment: heparin sub q (7) Iron deficiency anemia Current Visit: No Status: Acute Code(s): D50.9 - IRON DEFICIENCY ANEMIA, UNSPECIFIED SNOMED Code(s): 56990578 Comment: - HH stable will continue iron supplementation Status and Disposition: inpatient - discharge home when medically stable
[2018-12-07] MEDS: oxyCODONE/Acetamin 5/325 MG* TAB PO PRN (21:01)
[2018-12-08] MEDS: Levalbuterol 0.63MG/3ML NEB* UNIT OF USE INH SCH ×4 (01:18→19:43)
[2018-12-08] MEDS: Albuterol HFA INHALER* 8 gm MDI INH PRN ×2 (02:22→11:37)
[2018-12-08] MEDS: Saline NASAL SPRAY 0.65%* BTL BOTH NARES PRN ×2 (04:05→13:20)
[2018-12-08] MEDS: Heparin VIAL(*) 5000 UNITS/ML VIAL (FIVE THOUSAND) SUBCUT SCH ×3 (05:10→20:01)
[2018-12-08 06:44] LABS: ABS Basophils 0 10^3/ul (0-0.2); ABS Eosinophils 0 10^3/ul (0-0.6); ABS Lymphocytes 1.3 10^3/ul (1.0-4.8); ABS Monocytes 0.9 10^3/ul (0-0.8); ABS Nucleated RBC 0 10^3/ul; Eosinophil % 0.1 %; Hematocrit 36 % (35-47); Hemoglobin 12.2 g/dl (12.0-16.0); Lymphocyte % 13.7 %; Mean Corpuscular HGB Conc 34 g/dl (31-36); Mean Corpuscular Hemoglobin 30 pg (27-31); Mean Corpuscular Volume 89 fL (80-97); Mean Platelet Volume 7.5 fL (7.4-10.4); Nucleated Red Blood Cells % 0; Platelet Count 346 10^3/ul (150-450); Red Blood Count 4.08 10^6/ul (4.00-5.40); Red Cell Distribution Width 14 % (10.5-15); White Blood Count 9.2 10^3/ul (3.5-10.8)
[2018-12-08 07:02] LABS: BUN/Creatinine Ratio 36.7 (8-20); Calcium 9.7 mg/dL (8.6-10.3); EGFR Non-African American 121.2 (>60); Potassium 3.7 mmol/L (3.5-5.0)
[2018-12-08] MEDS: Budesonide NEB* 0.5 MG/2 ML NEB.SOLN INH SCH ×2 (07:31→19:43)
[2018-12-08] MEDS: Tiotropium CAP.INH* CAP.INH/18 MCG (USE ORDER SET !) INH SCH (07:32)
[2018-12-08] MEDS: Docusate CAP* 100 MG PO SCH ×2 (08:00→20:01)
[2018-12-08] MEDS: ALPRAZolam TAB* 0.25 MG PO SCH ×3 (08:16→20:01)
[2018-12-08] MEDS: predniSONE TAB* 20 MG PO SCH (08:17)
[2018-12-08] MEDS: CMC:LoraTADine TAB(NF) 10 MG TAB PO SCH (08:17)
[2018-12-08] MEDS: Pantoprazole TAB * 40 MG TAB PO SCH (08:18)
[2018-12-08] MEDS: Polyethyl Glycol/Propylene Gly OPHTH.SOLN BOTH EYES SCH (08:18)
[2018-12-08] MEDS: Montelukast Sodium TAB* 10 MG PO SCH (08:18)
[2018-12-08] MEDS: Ferrous Gluconate TAB* 324 MG TAB PO SCH (08:18)
[2018-12-08] MEDS: guaiFENesin ER TAB 600 MG PO SCH ×2 (08:18→20:01)
[2018-12-08] MEDS: Sertraline* 25 MG TAB PO SCH (08:18)
--- NOTE | 2018-12-08 08:26 | PN ---
Subjective Date of Service: 12/08/18 Interval History: HD #8 on 12/08/18 83 yo F with COPD GOLD 4 on home 2.5L, anxiety, , hx of T9 compression frxr, RANDOLPH who presented with SOB found to have COPD exacerbation, c/b anxiety, FTT, hypoNA. Overnight, no acute events. VS 154/79, afebrile, satting well on 1-2L, RR in the upper 90's sinus. Voiding but no recent BM noted. This morning she continues to feel short of breath, though from nursing report some improvement. Patient reports that she feels scared when she is alone and then she feels her breathing becomes worse. Denies chest pain. Denies fever or chills, denies abd pain n/v/d. Palliative care consulted and VN services to put her in AIM program. Did call her son (she lives with niece) he is concerned about psych consult, not sure what that would offer and we discussed for about 20 mins he is going to have GOC with her and her niece when she gets home. Family History: Unchanged from Admission Social History: Unchanged from Admission Past Medical History: Unchanged from Admission Objective Active Medications: Acetaminophen (Tylenol Tab*) 650 mg PO Q4H PRN PRN Reason: FEVER/PAIN Last Admin: 12/07/18 04:57 Dose: 650 mg Albuterol (Ventolin Hfa Inhaler*) 1 puff INH [id number] AWAKE PRN PRN Reason: SHORTNESS OF BREATH Last Admin: 12/08/18 02:22 Dose: 1 puff Alprazolam (Xanax Tab*) 0.25 mg PO TID [facility] Last Admin: 12/08/18 08:16 Dose: 0.25 mg Budesonide (Pulmicort Neb*) 0.5 mg INH BID [facility] Last Admin: 12/08/18 07:31 Dose: 0.5 mg Docusate Sodium (Colace Cap*) 100 mg PO BID [facility] Last Admin: 12/08/18 08:00 Dose: Not Given Famotidine (Pepcid Tab*) 10 mg PO BID PRN PRN Reason: INDIGESTION Ferrous Gluconate (Fergon Tab*) 324 mg PO DAILY [facility] Last Admin: 12/08/18 08:18 Dose: 324 mg Guaifenesin (Mucinex*) 600 mg PO BID [facility] Last Admin: 12/08/18 08:18 Dose: 600 mg Heparin Sodium (Porcine) (Heparin Vial(*)) 5,000 units SUBCUT Q8HR [facility] Last Admin: 12/08/18 05:10 Dose: 5,000 units Levalbuterol HCl (Xopenex 0.63mg/3ml Neb*) 0.63 mg INH [id number] AWAKE [facility] Last Admin: 12/08/18 07:32 Dose: 0.63 mg Loratadine (Claritin Tab(Nf)) 10 mg PO DAILY [facility] Last Admin: 12/08/18 08:17 Dose: 10 mg Montelukast Sodium (Singulair Tab*) 10 mg PO DAILY [facility] Last Admin: 12/08/18 08:18 Dose: 10 mg Ondansetron HCl (Zofran Odt Tab*) 4 mg PO Q6HR PRN PRN Reason: NAUSEA/VOMITING Last Admin: 12/06/18 23:30 Dose: 4 mg Oxycodone/Acetaminophen (Percocet 5/325 Tab*) 1 tab PO Q6H PRN PRN Reason: PAIN Last Admin: 12/07/18 21:01 Dose: 1 tab Pantoprazole Sodium (Protonix Tab (Nf)) 40 mg PO DAILY [facility] Last Admin: 12/08/18 08:18 Dose: 40 mg Polyethyl Glycol/Propylene Glycol (Lubricant Eye Drops) 1 drop BOTH EYES DAILY [facility] Last Admin: 12/08/18 08:18 Dose: 1 drop Polyethylene Glycol/Electrolytes (Miralax*) 17 gm PO DAILY PRN PRN Reason: CONSTIPATION Prednisone (Deltasone Tab*) 40 mg PO DAILY [facility] Last Admin: 12/08/18 08:17 Dose: 40 mg Sertraline HCl (Zoloft*) 25 mg PO DAILY [facility] Last Admin: 12/08/18 08:18 Dose: 25 mg Sodium Chloride (Sodium Chloride 0.65% Nasal [place]*) 1 spray BOTH NARES BID PRN PRN Reason: PER PROTOCOL Last Admin: 12/08/18 04:05 Dose: 1 spray Tiotropium [place] (Spiriva Cap.Inh*) 1 cap INH DAILY [facility] Last Admin: 12/08/18 07:32 Dose: 1 cap Vital Signs - 8 hr 12/08/18 12/08/18 12/08/18 01:22 02:22 07:33 Temperature 98.0 F 98.2 F Pulse Rate 98 113 Respiratory 16 20 24 Rate Blood Pressure 156/82 189/101 (mmHg) O2 Sat by Pulse 97 96 Oximetry 12/08/18 12/08/18 12/08/18 07:34 07:35 08:16 Temperature Pulse Rate 117 Respiratory 18 20 Rate Blood Pressure (mmHg) O2 Sat by Pulse 96 99 Oximetry Oxygen Devices in Use Now: Nasal Cannula Appearance: Thin anxious woman in NAD Ears/Nose/Mouth/Throat: NL Teeth, Lips, Gums, Mucous Membranes Moist Neck: NL Appearance and Movements; NL JVP Respiratory: Symmetrical Chest Expansion and Respiratory Effort Cardiovascular: NL Sounds; No Murmurs; No JVD, RRR Abdominal: NL Sounds; No Tenderness; No Distention Lymphatic: No Cervical Adenopathy Extremities: No Edema Skin: No Rash or Ulcers Neurological: Alert and Oriented x 3 - Nutrition: Malnutrition Diagnosis/Plan Malnutrition Assessment by Registered Dietitian: Malnutrition Assessment Clinical Characteristics Acute,Moderate Malnutrition Assessment: - Mild-moderate temporal muscle wasting Criteria - 7% wt loss x past 1.5 months - <75% or less of estimated energy needs > 7 days Malnutrition Assessment: - recommend liberalizing diet as able Interventions - will trial ensure clear w/ lunch this afternoon (240 kcals, 8 grams of protein) Malnutrition Assessment: Goals 1. Adequate PO intake to promote lean body mass and overall wt repletion while maintaining adequate hydration Result Diagrams: 12/08/18 06:22 12/08/18 06:22 Microbiology and Other Data: Microbiology 12/01/18 08:41 Aerobic Blood Culture - Preliminary Blood Venous No Growth Day 1 Anaerobic Blood Culture - Final Not Reportable 12/01/18 08:48 Aerobic Blood Culture - Preliminary Blood Venous No Growth Day 1 Anaerobic Blood Culture - Preliminary No Growth Day 1 Assess/Plan/Problems-Billing Assessment: 83 yo F with PMH COPD Gold 4, depression and anxiety, , compression frxr (T9), RANDOLPH, who presented with SOB multifactorial to COPD exacerbation and anxiety. Also with FTT, hypoNA. - Patient Problems (1) COPD exacerbation Current Visit: No Status: Acute Code(s): J44.1 - CHRONIC OBSTRUCTIVE PULMONARY DISEASE W (ACUTE) EXACERBATION SNOMED Code(s): 994400492 Comment: Acute on Chronic Hypoxic Respiratory Failure - Remains short of breath - improving slowly today - Poor reserve; pain and anxiety amplify symptoms - Continue nebs and prednisone and home inhalers - patient finished z-justin prior to admission - will hold on further antibiotic at this time - Morphine stopped, xanax decreased to TID, O2 decreased to maintain o2 saturations 88-92% - Prednisone tapering, reduced to 40 mg (2) Anxiety Current Visit: No Status: Acute Code(s): F41.9 - ANXIETY DISORDER, UNSPECIFIED SNOMED Code(s): 02592221 Comment: - Continue PRN Xanax - patient reports that she feels very anxious in the moring when waking and then symptoms improve throughtout the day - will continue sertraline 50mg (which was increased) which was started this hospitlization, per son has done well on SSRI in the past but self d/c - Palliative care at home, long GOC discussion with the son today who is going to consider discussing palliative formally with her at home (3) Hyponatremia Current Visit: Yes Status: Acute Code(s): E87.1 - HYPO-OSMOLALITY AND HYPONATREMIA SNOMED Code(s): 22815063 Comment: - Appears hypovolemic, hypoNA, will bolus 500cc x 1 (4) Compression fracture Current Visit: No Status: Acute Code(s): NLF1704 - SNOMED Code(s): 347216176 Comment: - T9 fracture noted in 11/04 - continue brace for comfort (5) Malnutrition Current Visit: Yes Status: Acute Code(s): E46 - UNSPECIFIED PROTEIN-CALORIE MALNUTRITION SNOMED Code(s): 42721667 Comment: Patient with mild to moderate temporal wasting - will liberalize patient's diet - will ad ensure clears as per recommendations (6) Aortic stenosis Current Visit: No Status: Acute Code(s): I35.0 - NONRHEUMATIC AORTIC (VALVE ) STENOSIS SNOMED Code(s): 09920542 Comment: - stable (7) DVT prophylaxis Current Visit: No Status: Acute Code(s): BSC7612 - SNOMED Code(s): 816197424 Comment: - heparin sub q Status and Disposition: inpatient - discharge home when medically stable
[2018-12-08] MEDS: Sertraline* 50 MG TAB PO SCH (11:39)
[2018-12-08] MEDS ORDERED: Sertraline* 25 MG TAB PO ONE (12:20)
[2018-12-08] MEDS ORDERED: traZODone TAB* 50 MG TAB PO PRN (18:26)
[2018-12-08] MEDS: NS 0.9% 500 ML* 500 ML IV ONE ×2 (18:44→18:48)
[2018-12-09] MEDS: Levalbuterol 0.63MG/3ML NEB* UNIT OF USE INH SCH ×4 (01:30→14:01)
[2018-12-09] MEDS: Saline NASAL SPRAY 0.65%* BTL BOTH NARES PRN (02:08)
[2018-12-09] MEDS: Heparin VIAL(*) 5000 UNITS/ML VIAL (FIVE THOUSAND) SUBCUT SCH ×2 (05:00→13:11)
[2018-12-09 06:49] LABS: ABS Basophils 0 10^3/ul (0-0.2); ABS Eosinophils 0 10^3/ul (0-0.6); ABS Lymphocytes 1.1 10^3/ul (1.0-4.8); ABS Neutrophils 8.3 10^3/ul (1.5-7.7); ABS Nucleated RBC 0 10^3/ul; Eosinophil % 0 %; Hematocrit 36 % (35-47); Hemoglobin 12.1 g/dl (12.0-16.0); Lymphocyte % 10.7 %; Mean Corpuscular HGB Conc 34 g/dl (31-36); Mean Corpuscular Hemoglobin 30 pg (27-31); Mean Corpuscular Volume 89 fL (80-97); Mean Platelet Volume 7.6 fL (7.4-10.4); Nucleated Red Blood Cells % 0; Platelet Count 331 10^3/ul (150-450); Red Blood Count 4.04 10^6/ul (4.00-5.40); Red Cell Distribution Width 15 % (10.5-15); White Blood Count 10.5 10^3/ul (3.5-10.8)
[2018-12-09 07:09] LABS: BUN/Creatinine Ratio 34.1 (8-20); Calcium 9.4 mg/dL (8.6-10.3); EGFR Non-African American 148.9 (>60); Potassium 3.8 mmol/L (3.5-5.0)
[2018-12-09] MEDS: Tiotropium CAP.INH* CAP.INH/18 MCG (USE ORDER SET !) INH SCH (07:25)
[2018-12-09] MEDS: Budesonide NEB* 0.5 MG/2 ML NEB.SOLN INH SCH (07:25)
[2018-12-09] MEDS: ALPRAZolam TAB* 0.25 MG PO SCH ×2 (08:01→13:14)
[2018-12-09] MEDS: predniSONE TAB* 20 MG PO SCH (10:29)
[2018-12-09] MEDS: Montelukast Sodium TAB* 10 MG PO SCH (10:29)
[2018-12-09] MEDS: Pantoprazole TAB * 40 MG TAB PO SCH (10:29)
[2018-12-09] MEDS: Docusate CAP* 100 MG PO SCH (10:30)
[2018-12-09] MEDS: Polyethyl Glycol/Propylene Gly OPHTH.SOLN BOTH EYES SCH (10:30)
[2018-12-09] MEDS: CMC:LoraTADine TAB(NF) 10 MG TAB PO SCH (10:30)
[2018-12-09] MEDS: Sertraline* 50 MG TAB PO SCH (10:30)
[2018-12-09] MEDS: Ferrous Gluconate TAB* 324 MG TAB PO SCH (10:30)
[2018-12-09] MEDS: guaiFENesin ER TAB 600 MG PO SCH (10:30)
[2018-12-09 13:13] VITALS: BP 187/79
--- NOTE | 2018-12-09 13:16 | PN ---
Subjective Date of Service: 12/09/18 Interval History: HD #9 on 12/09/18 83 yo F with COPD GOLD 4 on home 2.5L, anxiety, , hx of T9 compression frxr, RANDOLPH who presented with SOB found to have COPD exacerbation, c/b anxiety, FTT, hypoNA. Overnight, no acute events. VS 150s/80s, afebrile, satting well on 1-2L, RR in the upper 90's sinus. Voiding but no recent BM noted. This morning she continues to feel short of breath,notable for anxiety, working with dinkey engineer. Patient reports that she feels scared when she is alone and then she feels her breathing becomes worse. Denies chest pain. Denies fever or chills , denies abd pain n/v/d. Palliative care consulted and VN services to put her in AIM program, they could be at the home by tomorrow Yesterday did call her son (she lives with niece) he is concerned about psych consult, not sure what that would offer and we discussed for about 20 mins he is going to have GOC with her and her niece when she gets home. Family History: Unchanged from Admission Social History: Unchanged from Admission Past Medical History: Unchanged from Admission Objective Active Medications: Acetaminophen (Tylenol Tab*) 650 mg PO Q4H PRN PRN Reason: FEVER/PAIN Last Admin: 12/07/18 04:57 Dose: 650 mg Albuterol (Ventolin Hfa Inhaler*) 1 puff INH [id number] AWAKE PRN PRN Reason: SHORTNESS OF BREATH Last Admin: 12/08/18 11:37 Dose: 1 puff Alprazolam (Xanax Tab*) 0.25 mg PO TID [facility] Last Admin: 12/09/18 08:01 Dose: 0.25 mg Budesonide (Pulmicort Neb*) 0.5 mg INH BID [facility] Last Admin: 12/09/18 07:25 Dose: 0.5 mg Docusate Sodium (Colace Cap*) 100 mg PO BID [facility] Last Admin: 12/09/18 10:30 Dose: 100 mg Famotidine (Pepcid Tab*) 10 mg PO BID PRN PRN Reason: INDIGESTION Ferrous Gluconate (Fergon Tab*) 324 mg PO DAILY [facility] Last Admin: 12/09/18 10:30 Dose: 324 mg Guaifenesin (Mucinex*) 600 mg PO BID [facility] Last Admin: 12/09/18 10:30 Dose: 600 mg Heparin Sodium (Porcine) (Heparin Vial(*)) 5,000 units SUBCUT Q8HR [facility] Last Admin: 12/09/18 05:00 Dose: 5,000 units Levalbuterol HCl (Xopenex 0.63mg/3ml Neb*) 0.63 mg INH [id number] AWAKE [facility] Last Admin: 12/09/18 07:25 Dose: 0.63 mg Loratadine (Claritin Tab(Nf)) 10 mg PO DAILY [facility] Last Admin: 12/09/18 10:30 Dose: 10 mg Montelukast Sodium (Singulair Tab*) 10 mg PO DAILY [facility] Last Admin: 12/09/18 10:29 Dose: 10 mg Ondansetron HCl (Zofran Odt Tab*) 4 mg PO Q6HR PRN PRN Reason: NAUSEA/VOMITING Last Admin: 12/06/18 23:30 Dose: 4 mg Pantoprazole Sodium (Protonix Tab (Nf)) 40 mg PO DAILY [facility] Last Admin: 12/09/18 10:29 Dose: 40 mg Polyethyl Glycol/Propylene Glycol (Lubricant Eye Drops) 1 drop BOTH EYES DAILY [facility] Last Admin: 12/09/18 10:30 Dose: 1 drop Polyethylene Glycol/Electrolytes (Miralax*) 17 gm PO DAILY PRN PRN Reason: CONSTIPATION Prednisone (Deltasone Tab*) 40 mg PO DAILY [facility] Last Admin: 12/09/18 10:29 Dose: 40 mg Sertraline HCl (Zoloft*) 50 mg PO DAILY [facility] Last Admin: 12/09/18 10:30 Dose: 50 mg Sodium Chloride (Sodium Chloride 0.65% Nasal [place]*) 1 spray BOTH NARES BID PRN PRN Reason: PER PROTOCOL Last Admin: 12/09/18 02:08 Dose: 1 spray Tiotropium [place] (Spiriva Cap.Inh*) 1 cap INH DAILY [facility] Last Admin: 12/09/18 07:25 Dose: 1 cap Trazodone HCl (Desyrel Tab*) 50 mg PO BEDTIME PRN PRN Reason: INSOMNIA Last Admin: 12/08/18 20:01 Dose: 50 mg Vital Signs - 8 hr 12/09/18 12/09/18 12/09/18 05:59 07:27 08:01 Temperature 97.7 F Pulse Rate 108 106 Respiratory 20 18 18 Rate Blood Pressure 159/84 (mmHg) O2 Sat by Pulse 97 98 Oximetry Oxygen Devices in Use Now: Nasal Cannula Appearance: Frail thin woman in bed in NAD Ears/Nose/Mouth/Throat: NL Teeth, Lips, Gums, Mucous Membranes Moist Neck: NL Appearance and Movements; NL JVP Respiratory: Symmetrical Chest Expansion and Respiratory Effort, Clear to Auscultation, - - Distant Cardiovascular: NL Sounds; No Murmurs; No JVD, RRR Abdominal: NL Sounds; No Tenderness; No Distention Lymphatic: No Cervical Adenopathy Neurological: Alert and Oriented x 3 - Nutrition: Malnutrition Diagnosis/Plan Malnutrition Assessment by Registered Dietitian: Malnutrition Assessment Clinical Characteristics Acute,Moderate Malnutrition Assessment: - Mild-moderate temporal muscle wasting Criteria - 7% wt loss x past 1.5 months - <75% or less of estimated energy needs > 7 days Malnutrition Assessment: - recommend liberalizing diet as able Interventions - will trial ensure clear w/ lunch this afternoon (240 kcals, 8 grams of protein) Malnutrition Assessment: Goals 1. Adequate PO intake to promote lean body mass and overall wt repletion while maintaining adequate hydration Result Diagrams: 12/09/18 06:29 12/09/18 06:29 Microbiology and Other Data: Microbiology 12/01/18 08:41 Aerobic Blood Culture - Preliminary Blood Venous No Growth Day 1 Anaerobic Blood Culture - Final Not Reportable 12/01/18 08:48 Aerobic Blood Culture - Preliminary Blood Venous No Growth Day 1 Anaerobic Blood Culture - Preliminary No Growth Day 1 Assess/Plan/Problems-Billing Assessment: 83 yo F with PMH COPD Gold 4, depression and anxiety, , compression frxr (T9), RANDOLPH, who presented with SOB multifactorial to COPD exacerbation and anxiety. Also with FTT, hypoNA. - Patient Problems (1) COPD exacerbation Current Visit: No Status: Acute Code(s): J44.1 - CHRONIC OBSTRUCTIVE PULMONARY DISEASE W (ACUTE) EXACERBATION SNOMED Code(s): 611352981 Comment: Acute on Chronic Hypoxic Respiratory Failure - Improving today - Poor reserve; pain and anxiety amplify symptoms - Continue nebs and prednisone and home inhalers - patient finished z-justin prior to admission - will hold on further antibiotic at this time - Morphine stopped, xanax decreased to TID, O2 decreased to maintain o2 saturations 88-92% - Prednisone tapering, reduced to 40 mg, taper for ttoal of 9 days on d/c 30mg x 3 days, tehn 20mg x 3 days, then 10mg x 3 days then stop (2) Anxiety Current Visit: No Status: Acute Code(s): F41.9 - ANXIETY DISORDER, UNSPECIFIED SNOMED Code(s): 75171013 Comment: - Continue PRN Xanax - patient reports that she feels very anxious in the moring when waking and then symptoms improve throughtout the day - will continue sertraline 50mg (which was increased) which was started this hospitlization, per son has done well on SSRI in the past but self d/c - Palliative care at home, long GOC discussion with the son today who is going to consider discussing palliative formally with her at home (3) Hyponatremia Current Visit: Yes Status: Acute Code(s): E87.1 - HYPO-OSMOLALITY AND HYPONATREMIA SNOMED Code(s): 72290651 Comment: - Appears hypovolemic, hypoNA, on chronic hypoNA which likely from low salt in diet (4) Compression fracture Current Visit: No Status: Acute Code(s): OSI7307 - SNOMED Code(s): 609603108 Comment: - T9 fracture noted in 11/04 - continue brace for comfort (5) Malnutrition Current Visit: Yes Status: Acute Code(s): E46 - UNSPECIFIED PROTEIN-CALORIE MALNUTRITION SNOMED Code(s): 48544808 Comment: Patient with mild to moderate temporal wasting - will liberalize patient's diet - will ad ensure clears as per recommendations (6) Aortic stenosis Current Visit: No Status: Acute Code(s): I35.0 - NONRHEUMATIC AORTIC (VALVE ) STENOSIS SNOMED Code(s): 03309976 Comment: - stable (7) DVT prophylaxis Current Visit: No Status: Acute Code(s): PXO0708 - SNOMED Code(s): 514265786 Comment: - heparin sub q Status and Disposition: Discharge today
--- NOTE | 2018-12-09 22:31 | DS ---
CC: Dr. Yovnai Bird * DISCHARGE SUMMARY: DATE OF ADMISSION: 12/01/18 DATE OF DISCHARGE: 12/09/18 PRIMARY CARE PHYSICIAN: Dr. Yovani Bird. PRIMARY DIAGNOSES: 1. Chronic obstructive pulmonary disease exacerbation. 2. Anxiety. SECONDARY DIAGNOSES: 1. Chronic obstructive pulmonary disease GOLD stage IV, on home 2.5 L of oxygen. 2. Anxiety. 3. Aortic stenosis. 4. History of T9 compression fracture, old. 5. Iron deficient anemia. MEDICATIONS ON DISCHARGE: Are as follows: 1. Acetaminophen 325 mg p.o. q.6 hours p.r.n. for pain. 2. Albuterol inhaler 2 puffs inhaled 4 times a day. 3. Albuterol/ipratropium nebulizers inhaled 4 times a day as needed for shortness of breath. 4. Alendronate 70 mg p.o. q. week. 5. Alprazolam 0.25 mg p.o. 4 times a day p.r.n. for anxiety. 6. Budesonide 0.5 mg inhaled b.i.d. standing. 7. Clobetasol propionate topical cream 0.05% applied to affected area b.i.d. p.r.n. 8. Desloratadine 10 mg p.o. daily. 9. Docusate 100 mg p.o. b.i.d. 10. Famotidine 10 mg p.o. b.i.d. p.r.n. for GERD. 11. Guaifenesin extended release 600 mg p.o. b.i.d. 12. Systane Gel 10 g 0.3% both eyes q. day. 13. Ketoconazole 2% cream 1 application topically daily to affected area. 14. Montelukast 10 mg p.o. daily. 15. Omeprazole 20 mg p.o. daily. 16. Ondansetron 4 mg p.o. q.6 hours p.r.n. for nausea. 17. Oxycodone/acetaminophen 5/325 one tab p.o. q.6 hours p.r.n. 18. Saline nasal spray inhalations both nares daily. 19. Spiriva 1 inhalation daily. 20. Prednisone 40 mg p.o. daily to be continued 3 days after discharge, followed by prednisone 30 mg p.o. daily to be continued 3 days after completion of the 40 mg dose, and prednisone 5 mg p.o. daily for additional 7 days after completion of 30 mg dose. 21. Sertraline 50 mg p.o. daily. Her medication changes on this hospitalization were the addition of sertraline 50 mg p.o. daily and the prednisone taper described as above, 40 mg for 3 days followed by 30 mg for 3 days followed by 5 mg for 7 days and then stop. HISTORY OF PRESENT ILLNESS/HOSPITAL COURSE: This is an 83-year-old female with above past medical history who presented to the emergency room on 12/01/18, who states that she has had significant change to shortness of breath in the past weeks to month. The night prior to admission, she struggled to breathe and felt that she was the worst that she has been. She generally uses her nebulizer 4 to 5 times a day. She lives at home with a niece and her niece recommended that she come to the emergency room. She had taken a Z-Niraj from her primary care provider just prior to admission and had completed that. In the emergency room, her labs were unremarkable showing mild anemia prior to her baseline. She had a chest x-ray which showed hyperinflation consistent with COPD. She had an EKG that showed sinus tachycardia. She had a negative urinalysis. Her symptoms improved with DuoNebs, Ativan, and IV Solu-Medrol. She was admitted to the medical service for further treatment and evaluation. While on the medical service, her hospital course by problem was as follows: 1. COPD exacerbation. With lack of compelling evidence that this was a true pneumonia, this was treated as a routine COPD exacerbation and treated with steroids, which were initially IV at first and then transitioned to p.o. She had completed azithromycin prior to admission, and thus, we held on further antibiotics given no leukocytosis or evidence of pneumonia or consolidation on admission. Her Xanax was decreased to 3 times a day and Zoloft was started for concern for increase in anxiety, and her symptoms improved gradually over the course of her hospitalization. 2. Anxiety. Patient has longstanding chronic anxiety and this was discussed with her and her son, who is her healthcare proxy. This dates back to very early in life. She has refused counseling and followup with mental health as an outpatient. We discussed with her the pros and cons of seeing psychiatric evaluation while here and she declined. She was of note not on an SSRI prior to admission, and in the past, she has benefitted from them although does not take them long-term. We started sertraline and patient has tolerated medications very well. We encouraged her to continue to take this medication and we have also evaluated her for VNA services who planned to put her in the AIM Program, which helps patients take a palliative approach to the chronic disease. Furthermore, goals of care discussion was held with her and her son to discuss considering a palliative approach to her anxiety, and they will continue these discussions at home and were not ready to change her goals of care status at this time in hospitalization. 3. Hyponatremia. She has mild hyponatremia throughout her hospitalization from 129 to 134, this appears chronic. She is mildly hypovolemic. She also has poor salt intake in the diet. No evidence of SIADH. 4. Compression fracture. She has a T9 fracture noted to be old, she wears a brace for comfort. 5. Failure to thrive. She is underweight which is multifactorial from her severe COPD as well as her anxiety. We have liberalized the patient's diet. We have started an SSRI and consider appetite stimulant as an outpatient. We also did add Ensure Clear after recommendation for nutrition. 6. Aortic stenosis. This was stable and did not contribute to her hospitalization. Otherwise, no active problems were managed. The main changes were, patient was discharged on a steroid taper as well as the addition of SSRI , sertraline, for her anxiety. PHYSICAL EXAMINATION: Her vitals on the day of discharge were blood pressure 150s/80s, temperature 97.7, pulse rate sinus in the high 90s, respiratory rate in the high teens, satting 97% on 1 L. Her physical exam was notable for a frail, thin woman lying in bed, quite anxious. Her lungs are symmetrical chest expansion and clear to auscultation though distant. Cardiovascular: She has 3/ 6 systolic ejection murmur, otherwise regular rate and rhythm. Her belly is soft, nontender, and nondistended. She has no cervical adenopathy. She is alert and oriented x3, though with limited insight to her anxiety. Imaging done on this hospitalization was consistent only with a chest x-ray which showed hyperinflation and chronic COPD changes without obvious infiltrate. Microbiology done on this hospitalization included blood cultures which were no growth today for 5 days. REVIEW OF SYSTEMS: Review of systems was done which was positive for chronic anxiety and shortness of breath, although she does report that this is closer to her baseline. TIME SPENT: Over 45 minutes were spent in the planning of this discharge with over half of that at the bedtime in counseling her and her son. They have no further questions and are comfortable with discharge to home with additional home nursing care and enrollment in [facility]'s AIM Program, which is a bridge to palliative care if and when the patient and her family decide to take a more palliative approach to her anxiety. FOLLOWUP: Items to follow up on after discharge: 1. Her anxiety, this is poorly controlled at baseline and likely secondary to patient's poor compliance with long-acting anti-anxiety medications in the outpatient setting. Encouraged her to follow on sertraline 50 mg and can increase to goal. Also could consider araceli-psychiatric consult if patient is amenable. Continue participation in the AIM program and continue discussion of goals of care for a palliative approach to this patient's anxiety. 2. Her shortness of breath and COPD exacerbation. She remains on prednisone taper. The family is counseled for her to follow up with primary care provider to determine if she should remain on prednisone 5 mg daily for symptom palliation in the setting of advanced COPD or trial off prednisone. She has over 15 days of prednisone taper before she needs to follow up with primary care , then that decision can be made as an outpatient. 3. Hyponatremia. This appears to be chronic at baseline and likely from a " tea and toast diet," poor salt in the diet. Liberalized salt, encouraged the patient to keep up with volume. No evidence of SIADH on urine testing here in the hospital. Please do not hesitate to contact us for any questions regarding this hospitalization or the care that this patient received here. [id number]/[facility] #: [id number] STEFFANY
== END 2018-12-09 15:50 | disposition home or self-care (01) | DRG 190 ==
LOC: ED 07:57 → MED 11:40
PROVIDERS: ADMIT Internal Medicine; ATTEND Internal Medicine
DX: J44.1 Chronic obstructive pulmonary disease with (acute) exacerbation (principal); J96.21 Acute and chronic respiratory failure with hypoxia; E44.0 Moderate protein-calorie malnutrition; Z68.1 Body mass index [BMI] 19.9 or less, adult; E87.1 Hypo-osmolality and hyponatremia; M48.54XA Collapsed vertebra, not elsewhere classified, thoracic region, initial encounter for fracture; F41.9 Anxiety disorder, unspecified; I35.0 Nonrheumatic aortic (valve) stenosis; Z90.710 Acquired absence of both cervix and uterus; Z88.6 Allergy status to analgesic agent; Z88.5 Allergy status to narcotic agent; Z88.8 Allergy status to other drugs, medicaments and biological substances; R62.7 Adult failure to thrive; I10 Essential (primary) hypertension; F32.9 Major depressive disorder, single episode, unspecified; M79.7 Fibromyalgia; M47.896 Other spondylosis, lumbar region; K57.90 Diverticulosis of intestine, part unspecified, without perforation or abscess without bleeding; Z87.891 Personal history of nicotine dependence; D50.9 Iron deficiency anemia, unspecified
CPT/HCPCS: 36415; 36600; 71046; 80048; 80053; 81003; 82550; 82553; 82803; 83605; 83735; 83880; 84484; 85025; 85027; 85610; 85730; 86140; 87040; 93005; 94640; 99284; A9270-GY; G8978-GP-CK; G8979-GP-CI; J1644; J2270; J2930; J3475; J7512

== ENCOUNTER 2018-12-11 11:26 | Inpatient (IN) | payer MEDICARE ==
[2018-12-11] MEDS ORDERED: Nitroglycerin TAB 0.4 MG* 0.4 MG TAB SL ONE (11:55)
--- NOTE | 2018-12-11 12:02 | ED ---
Shortness of Breath - HPI Summary HPI Summary: Patient is a 83 y/o F presenting to ED via ambulance with complaints of SOB, chest pain worse since this am. Patient reports increased SOB this morning. Hx of COPD, patient is on 2L o2 at home all the time. She did a neb at home with no relief in Sx. EMS provided dexamethasone 10mg IV, no duoneb as she was reported to be hypertensive. Patient was admitted 12/01/18 for COPD exacerbation , she was discharged two days ago. In the room, she states that she is experiencing chest pain, has been having this Sx for the past few weeks but currently it is worst that she has ever had. Pain is described as a stabbing/ sharp pain. She states no Hx of SD. Patient believes that she has not had a fever, states she feels congested. In the room, she has a productive cough. She notes that ASA makes her stomach bleed. She states that she takes oxycodone occasionally, Ativan as well without sxs, with her multiple allergies noted. On triage, pain is denied, lying flat is noted to aggravate Sx. Home medications and allergies are reviewed. In room, pulse 112, BP 189/110, O2 96%. Allergies Allergy/AdvReac Type Severity Reaction Status Date / Time diphenhydramine Allergy Unknown Verified 12/11/18 11:40 Reaction Details codeine AdvReac Vomiting Verified 12/11/18 11:40 hydrocodone AdvReac Vomiting Verified 12/11/18 11:40 propoxyphene AdvReac Vomiting Verified 12/11/18 11:40 tramadol AdvReac Vomiting Verified 12/11/18 11:40 - History of Current Complaint Chief Complaint: EDShortnessOfBreath Hx Obtained From: Patient, EMS Onset/Duration: Lasting Hours - this morning SOB, Lasting Weeks - chest pain for past weeks, Still Present, Worse Since - chest pain worse this am. Timing: Constant Current Severity: Moderate Dyspnea At: Rest Aggrevating Factors: Other - lying flat Alleviating Factors: Nothing Associated Signs & Symptoms: Cough (Productive), Nasal Congestion - Allergy/Home Medications Allergies/Adverse Reactions: Allergies Allergy/AdvReac Type Severity Reaction Status Date / Time diphenhydramine Allergy Unknown Verified 12/11/18 11:40 Reaction Details codeine AdvReac Vomiting Verified 12/11/18 11:40 hydrocodone AdvReac Vomiting Verified 12/11/18 11:40 propoxyphene AdvReac Vomiting Verified 12/11/18 11:40 tramadol AdvReac Vomiting Verified 12/11/18 11:40 PMH/Surg Hx/FS Hx/Imm Hx Previously Healthy: No Endocrine/Hematology History: Denies: Hx Diabetes Cardiovascular History: Reports: Hx Angina, Hx Hypertension, Hx Valvular Heart Disease - Aortic stenosis Respiratory History: Reports: Hx Chronic Obstructive Pulmonary Disease (COPD) - pt reports on 2-2.5L O2 at baseline 10/06 Denies: Hx Asthma GI History: Reports: Hx Diverticulosis - divericulitis Musculoskeletal History: Reports: Hx Arthritis - lumbar spine, Hx Back Problems , Hx Fibromyalgia Sensory History: Reports: Hx Contacts or Glasses, Hx Glaucoma, Hx Vision Problem , Hx Hearing Aid Opthamlomology History: Reports: Hx Contacts or Glasses, Hx Glaucoma, Hx Vision Problem Neurological History: Reports: Hx Headaches Psychiatric History: Reports: Hx Anxiety, Hx Depression - Surgical History Surgery Procedure, Year, and Place: HYSTERECTOMY, TONSILLECTOMY, BILAT BREAST BIOPSIES (BENIGN FIBROID CYSTS), APPENDECTOMY Hx Anesthesia Reactions: No Infectious Disease History: No Infectious Disease History: Denies: Traveled Outside the [place] in Last 30 Days - Family History Known Family History: Positive: Cardiac Disease - Positive heart failure to both parents, Other - Positive breast CA to sister - Social History Alcohol Use: None Hx Substance Use: No Substance Use Type: Reports: None Hx Tobacco Use: Yes Smoking Status (MU): Former Smoker Have You Smoked in the Last Year: No Review of Systems Positive: Other - POSITIVE - CONGESTION Positive: Chest Pain Positive: Shortness Of Breath, Cough - productive Gastrointestinal: Negative Positive: no symptoms reported Musculoskeletal: Negative Skin: Negative Neurological: Negative Psychological: Normal All Other Systems Reviewed And Are Negative: Yes Physical Exam - Summary Physical Exam Summary: Appearance: COPD habitus, kyphosis, thin, moderate pain distress, moderate respiratory distress Skin: Warm, color reflects adequate perfusion, dry Head: Normal Head/Face inspection, atraumatic Eyes: Conjunctiva clear ENT: Normal inspection Neck: Supple, no nodes, no JVD Respiratory: Decreased breath sounds throughout, scattered rhonchi, no wheezes, tachypneic, speaks in short bursts Cardio: RRR, No murmur, pulses normal, brisk capillary refill Abdomen: Soft, nontender Bowel sounds: Present Musculoskeletal: Strength Intact/ROM intact, no calf tenderness, no edema. Psychological: Normal Neuro: Alert, muscle tone normal, no focal deficit Triage Information Reviewed: Yes Vital Signs On Initial Exam: Initial Vitals Temp Pulse Resp BP Pulse Ox 98.9 F 114 32 208/99 94 12/11/18 11:29 12/11/18 11:29 12/11/18 11:29 12/11/18 11:29 12/11/18 11:29 Vital Signs Reviewed: Yes Diagnostics - Vital Signs Vital Signs Temp Pulse Resp BP Pulse Ox 12/11/18 11:49 98 12/11/18 11:29 98.9 F 114 32 208/99 94 - Laboratory Result Diagrams: 12/14/18 04:16 12/12/18 05:33 Lab Statement: Any lab studies that have been ordered have been reviewed, and results considered in the medical decision making process. - Radiology CXR Radiology Interpretation Completed By: Radiologist Summary of Radiographic Findings: CXR IMPRESSION: NO ACTIVE CARDIOPULMONARY DISEASE IS NOTED. THIS REPORT WAS REVIEWED BY ED PHYSICIAN. - EKG 1138 Cardiac Rate: Tachycardia - rate of 114 BPM EKG Rhythm: Sinus Tachycardia ST Segment: Non-Specific Ectopy: None EKG Comparison: No Significant Change - compared to 12/01/18 Summary of EKG Findings: EKG showed sinus tachycardia with rate of 114 BPM, nml AVIVCT, nml QTc, nml axis. No ectopy, non-specific ST. No significant changes when compared with 12/01/18 EKG. Re-Evaluation - Re-Evaluation First Eval Re-Evaluation Time: 14:00 Change: Unchanged Comment: Pt continues with wheezing and SOB. Will plan to admit. Course/Dx - Course Course Of Treatment: Patient is a 83 y/o F presenting to ED via ambulance with complaints of SOB, chest pain. Patient reports increased SOB this morning. Hx of COPD, patient is on 2L o2 at home all the time. She did nebulizer at home with no relief in Sx. EMS provided dexamethasone 10mg IV, no duoneb as she was reported to be hypertensive. Patient was admitted 12/01/18 for COPD exacerbation , she was discharged two days ago. In the room, she states that she is experiencing chest pain, has been having this Sx for the past few weeks but currently it is worst that she has ever had. Pain is described as a stabbing/ sharp pain. She states no Hx of SD. Patient believes that she has not had a fever, states she feels congested. In the room, she has a productive cough. She notes that ASA makes her stomach bleed. She states that she takes oxycodone occasionally, Ativan as well. ASA not given as patient states that it makes her stomach bleed. For the chest pain, 1 nitro was given, with no change in her chest pain. On physical exam, COPD habitus, kyphosis, thin-appearing is noted. Lungs have decreased breath sounds throughout, scattered rhonchi, no wheezes. Patient is tachypneic, speaks in short breaths. During ED course, patient was given Percocet 5/325 1 tab PO ONCE, nitro tab 0.4 mg SL ONCE, Xanax tab 0.25 mg PO ONCE, and duoneb 1 neb INH ONCE. CXR IMPRESSION: NO ACTIVE CARDIOPULMONARY DISEASE IS NOTED. EKG showed sinus tachycardia with rate of 114 BPM, nml AVIVCT , nml QTc, nml axis. No ectopy, non-specific ST. No significant changes when compared with 12/01/18 EKG. Influenza A, B were negative. Labs showed Troponin was 0.05, BNP 93, TSH 1.68, total protein 6.1. RBC 3.79, Hgb 11.4, Hct 34, absolute neuts 8.8, absolute lymphs 0.2, D-dimer 351, sodium 127, carbon dioxide 34, chloride 86, BUN/creatinine ratio 41.5, glucose 119, lactic acid 0.7 , magnesium 1.8, alk phos 111, ck-mg 6.9. Blood gas showed pCO2 58, HCO3 31.2, O2 sat 98.7, base excess 8.1. Patient's case was discussed with Dr. Nava at 1407, Dr. Nava accepts for admission. - Diagnoses Differential Diagnosis/HQI/PQRI: Positive: Asthma, Bronchitis, CHF, COPD Exacerbation, Pneumonia, Pulmonary Embolism Provider Diagnoses: COPD exacerbation, Chronic respiratory failure, Hyponatremia, Aortic stenosis, Iron deficiency anemia - Physician Notifications Discussed Care of Patient With: Sandra Nava Time Discussed With Above Provider: 14:07 Instructed by Provider To: Other - Patient's case was discussed with Dr. Nava at 1407, Dr. Nava accepts for admission. Discharge - Sign-Out/Discharge Documenting (check all that apply): Patient Departure - admit All imaging exams completed and their final reports reviewed: Yes - Discharge Plan Condition: Fair Disposition: ADMITTED TO [facility] - Billing Disposition and Condition Condition: FAIR Disposition: Admitted to [facility] - Attestation Statements Document Initiated by Scribe: Yes Documenting Scribe: IMANI PAYNE Provider For Whom Sun is Documenting (Include Credential): MARLENE EDGAR MD Scribe Attestation: IMANI Fortune , scribed for MARLENE EDGAR MD on 12/15/18 at 2301. Scribe Documentation Reviewed: Yes Provider Attestation: The documentation as recorded by the IMANI lopez accurately reflects the service I personally performed and the decisions made by , MARLENE EDGAR MD Status of Scribe Document: Viewed
[2018-12-11 12:11] LABS: ABS Basophils 0 10^3/ul (0-0.2); ABS Eosinophils 0 10^3/ul (0-0.6); ABS Lymphocytes 0.2 10^3/ul (1.0-4.8); ABS Monocytes 0.2 10^3/ul (0-0.8); ABS Neutrophils 8.8 10^3/ul (1.5-7.7); ABS Nucleated RBC 0 10^3/ul; Eosinophil % 0.1 %; Hematocrit 34 % (35-47); Hemoglobin 11.4 g/dl (12.0-16.0); Lymphocyte % 1.9 %; Mean Corpuscular HGB Conc 34 g/dl (31-36); Mean Corpuscular Hemoglobin 30 pg (27-31); Mean Corpuscular Volume 89 fL (80-97); Mean Platelet Volume 7.5 fL (7.4-10.4); Nucleated Red Blood Cells % 0; Platelet Count 291 10^3/ul (150-450); Red Blood Count 3.79 10^6/ul (4.00-5.40); Red Cell Distribution Width 15 % (10.5-15); White Blood Count 9.1 10^3/ul (3.5-10.8)
[2018-12-11 12:23] LABS: INR 0.99 (0.77-1.02)
[2018-12-11 12:37] LABS: Albumin 3.8 g/dL (3.2-5.2); Albumin/Globulin Ratio 1.7 (1-3); BUN/Creatinine Ratio 41.5 (8-20); Calcium 9.2 mg/dL (8.6-10.3); EGFR African American 180.2 (>60); EGFR Non-African American 148.9 (>60); Globulin 2.3 g/dL (2-4); Magnesium 1.8 mg/dL (1.9-2.7); Potassium 3.9 mmol/L (3.5-5.0); Total Bilirubin 0.7 mg/dL (0.2-1.0); Total Protein 6.1 g/dL (6.4-8.9)
[2018-12-11 12:42] LABS: CKMB ng/mL 6.9 ng/mL (0.6-6.3)
[2018-12-11 12:43] LABS: Troponin I 0.05 ng/mL (<0.04)
[2018-12-11] MEDS ORDERED: oxyCODONE/Acetamin 5/325 MG* TAB PO ONE (12:48)
[2018-12-11] MEDS ORDERED: Albuterol/Ipratropium NEB.SOL* Albuterol 2.5 MG/Ipratropium 0.5 MG 3 ML INH ONE (12:53)
[2018-12-11 13:14] LABS: TSH (Thyroid Stimulating Horm) 1.68 mcIU/mL (0.34-5.60)
[2018-12-11 13:53] LABS: Influenza A Molecular NEGATIVE (Negative); Influenza B Molecular NEGATIVE (Negative)
[2018-12-11] MEDS ORDERED: ALPRAZolam TAB* 0.25 MG PO ONE (13:54)
[2018-12-11] MEDS ORDERED: Iohexol 350* (CONTRAST) 500 ML MDV IV ONE (15:04)
[2018-12-11] MEDS ORDERED: Magnesium Sulfate 2 GM IV* 2 GM/50 ML BAG IVPB ONE (15:48)
[2018-12-11] MEDS ORDERED: Famotidine TAB* 20 MG PO PRN (15:51)
[2018-12-11] MEDS ORDERED: oxyCODONE/Acetamin 5/325 MG* TAB PO PRN (15:51)
[2018-12-11] MEDS ORDERED: DESLORATIDINE 5 MG PO PRN (15:51)
[2018-12-11] MEDS ORDERED: NS 0.9% 1000 ML** 1,000 ML IV SCH (16:00)
[2018-12-11 16:12] LABS: C Reactive Protein 4.77 mg/L (<8.01)
[2018-12-11 16:50] LABS: Erythrocyte Sed Rate 5 mm/Hr (0-40)
[2018-12-11 18:45] LABS: Urine Appearance Clear; Urine Bacteria Absent (Absent); Urine Bilirubin Negative (Negative); Urine Blood 1+ (Negative); Urine Color Yellow; Urine Glucose 1+(50 mg/dL) (Negative); Urine Ketones 1+ (Negative); Urine Nitrite Negative (Negative); Urine Protein Negative (Negative); Urine Red Blood Cell 1+(3-5/hpf) (Absent); Urine Squamous Epithelial Cell Present (Absent); Urine Urobilinogen Negative (Negative); Urine White Blood Cell Trace(0-5/hpf) (Absent)
--- NOTE | 2018-12-11 18:54 | HP ---
CC: Dr. Bird * HISTORY AND PHYSICAL: DATE OF ADMISSION: 12/11/18 PRIMARY CARE PROVIDER: Dr. Bird. ATTENDING PHYSICIAN WHILE IN THE HOSPITAL: Sandra Nava MD * (report dictated by Chris Vines NP) CHIEF COMPLAINT: 1. Shortness of breath. 2. Chest pain. HISTORY OF PRESENT ILLNESS: Mrs. Gomez is an 83-year-old female patient with severe COPD, aortic stenosis, who comes in to our ER today. She was just here from 12/01/18 to 12/09/18 with COPD exacerbation. Initially when I walked in to the room, she said "I was sent home too early," that is why she is back, but then in talking to her more, she states she has been having increasing shortness of breath. She states that she feels like she has a congestion in her chest that she just cannot bring up. She admits to having chest pain that she describes as a sharp stabbing pain that comes intermittently, worse with cough and worse with taking a deep breath. She denied having any fevers or chills. She denies having any abdominal pain. She did feel nauseous yesterday. She states her appetite is down again. She denied having any abdominal discomfort with the exception of when she coughs. She admits to dyspnea on exertion. She states that she really has not been taking good p.o. Her niece that lives with her was concerned and she came in to the ED today to be reevaluated for her breathing. She came in, it was noted that she had an elevated troponin at 0.05. There was concern for her increasing shortness of breath, so we were asked to evaluate for admission. PAST MEDICAL HISTORY: Significant for: 1. Aortic stenosis. 2. COPD, on 2.5 L chronically. 3. Anxiety. 4. History of T9 compression fracture. 5. Anemia. 6. Hypoglycemia. PAST SURGICAL HISTORY: 1. She has had . 2. She has had a lumpectomy. 3. Hysterectomy. 4. Tonsillectomy. MEDICATIONS: Home medications include: 1. Prednisone taper take as directed, she started this at discharge. 2. Percocet 1 tablet every 6 hours as needed. 3. Mucinex 600 mg p.o. b.i.d. 4. Spiriva 1 capsule inhale daily. 5. Sodium chloride 50 cc both nares b.i.d. as needed. 6. Zoloft 50 mg daily. 7. Systane eye drops, 1 drop both eyes daily. 8. Zofran 4 mg p.o. every 6 hours as needed. 9. Omeprazole 20 mg daily. 10. Singulair 10 mg daily. 11. Claritin 10 mg daily. 12. Ketoconazole cream 1 application topically b.i.d. as needed. 13. Systane gel 0.3% both eyes daily. 14. Ferrous gluconate 1 tablet p.o. daily. 15. Famotidine 10 mg p.o. b.i.d. as needed. 16. Colace 100 mg p.o. b.i.d. 17. Clarinex 5 mg p.o. daily as needed. 18. Clobetasol 0.05% topically b.i.d. as needed. 19. Pulmicort 0.5 mg inhale b.i.d. 20. Fosamax 70 mg p.o. weekly. 21. DuoNeb 1 neb inhale 4 times a day. 22. ProAir 2 puffs inhale 4 times a day as needed. 23. Tylenol 325 mg p.o. every 6 hours as needed. 24. Xanax 0.25 mg 4 times a day as needed. ALLERGIES TO MEDICATIONS: Include BENADRYL, CODEINE, HYDROCODONE, DARVOCET, and TRAMADOL. FAMILY HISTORY: Her mother had a history of CVA. Father had a history of CVA. SOCIAL HISTORY: She is a former smoker, she quit about 16 to 17 years ago, she smoked for about 40 years. She does not drink alcohol. Surrogate decision maker is her son, Walter. REVIEW OF SYSTEMS: There is no documented fever. She denied having any significant weight change. There is no double vision. She denies having any ear discharge. There is no rhinorrhea. She denied having any sore throat. She does admit to feeling congestion. She denies having any abdominal pain. There was 1 episode of nausea, but no vomiting. There is no dysuria, no frequency. No seizure. There is no loss of consciousness. No pruritus and no skin ulcerations. Review of 14 systems completed, all others negative. PHYSICAL EXAMINATION GENERAL: At this time, Mrs. Gomez is an 83-year-old female patient. She is sitting in the ED stretcher. She does not appear to be in any acute distress. She appears to be cachectic. She appears to be chronically ill appearing. VITAL SIGNS: Blood pressure 128/78, pulse 108, respirations were 18, O2 sat 97% , temperature 98.8. HEENT: Head: Atraumatic and normocephalic. Eyes: EOMs intact. Sclerae anicteric, not pale. Throat: Oral mucosa appears to be dry. No oropharyngeal erythema. NECK: Supple. LUNGS: Diminished throughout. She had no wheezing at this point, but she was very diminished. She has equal diaphragmatic expansion. She did have tenderness on palpation to her chest. HEART: Sounds S1, S2. She is tachycardic at 100. She had no murmurs, rubs, or gallops. She did have grade 2 to 3 systolic murmurs in the aortic listening area. ABDOMEN: Soft, flat, nontender. Bowel sounds were present. EXTREMITIES: Pulses were 2+ throughout. She is moving all 4 extremities with 5 /5 strength. NEUROLOGICAL: She is awake, alert. She is oriented x3. No gross focal deficits. SKIN: Intact with the exception she has a stage II pressure ulcer to her sacrum. Mepilex is being applied by nursing staff. DIAGNOSTIC STUDIES/LAB DATA: Labs revealed a WBC of 9.1, RBC of 3.79, hemoglobin 11.4, hematocrit 34, platelet count of 291. INR 0.99. D-dimer 351. PH was 7.39, pCO2 of 58, pO2 91. She had a sodium of 127, potassium of 3.9, chloride of 86, bicarb 34, BUN 17, creatinine of 0.41, glucose 119, lactate 0.9 , calcium 9.2, mag 1.8. Total bili 0.7, AST 25, ALT 25, alk phos 111. CK 118, CK-MB 6.9. Troponin was 0.05, repeat troponin was 0.005. BNP 93. TSH was normal. Serology was negative. Chest CTA showed no PE is noted, 6 mm nodule in the lingula is noted, this is unchanged from 2016, likely benign, no evidence of aortic dissection. She had a chest x-ray, no active cardiopulmonary disease. EKG showed a sinus tachycardia, rate of 101, she had no ST elevations noted. She did have some slight depression, downsloping ST segment in V5 and V6 that does appear to be similar to her previous EKG, no acute changes were noted. Old medical records were reviewed. She had an echo about a month ago, which showed EF of 60% to 65%. ASSESSMENT AND PLAN: Mrs. Gomez is an 83-year-old female patient coming in to the ED today with complaints of cough, worsening shortness of breath, not feeling well and having chest discomfort. She will be admitted under observation status for: 1. Chest pain and shortness of breath. I suspect she probably is having exacerbation of her COPD. She may need to be on higher dose of steroids. There may be a component of anxiety, but I am concerned because her troponins did bump, so I would like to trend those. I am going to put her on minimally an aspirin. She is not having any chest pain now. My plan would be to repeat this troponin in 3 hours, place her on telemetry, serial EKGs and get an echo. If they continue to elevate, I will certainly get Cardiology input, but this could be demand ischemia. She has aortic stenosis. Her last echo had moderate to severe , so this certainly could be demand ischemia. The chest pain is atypical in the sense it is reproducible and is worse with coughing, it could just be pleurisy or costochondritis. I am checking ESR and CRPs. Continue with current medical regimen and we will continue to follow. 2. Chronic obstructive pulmonary disease with mild exacerbation. I will put her on nebs, steroids. She had azithromycin recently. I do not think she needs it now. Her flu is negative. We will continue with pulmonary toileting. I will send legionella, Strep pneumo antigen and we will continue to follow if she spikes a fever or low threshold for antibiotics. 3. Aortic stenosis. We will continue with monitoring her Is and Os and keeping her hydrated. She does appear to be a little dry. She is tachycardic. I am going to give her fluids. We will follow. 4. Hyponatremia. Again, I think this is from dehydration. She has not eaten in the last couple days. I am going to go ahead and give her some fluids and I will follow up her BMP later tonight after some IV fluids to make sure it is not getting worse. We will continue to follow. 5. Anxiety. Continue supportive care. 6. History of T9 compression fracture. Continue p.r.n. Percocet. 7. Anemia. H and H appeared to be stable. We will continue to monitor. 8. Hypoglycemia. We will follow. 9. DVT prophylaxis. She will be placed on heparin subcu. 10. Code status. Full code. 11. Fluids, electrolytes, and nutrition. She can have a regular diet. TIME SPENT: On the admission was approximately 60 minutes, greater than half the time spent [id number] with the patient obtaining my history and physical; other half time spent going over the plan of care with the patient and implementing plan of care. I did discuss the plan of care with my attending, Dr. Nava; she is in agreement. CHRIS VINES NP [id number]/[facility] #: [id number] STEFFANY
[2018-12-11] MEDS: guaiFENesin ER TAB 600 MG PO SCH (20:03)
[2018-12-11] MEDS: Docusate CAP* 100 MG PO SCH (20:03)
[2018-12-11] MEDS: Albuterol/Ipratropium NEB.SOL* Albuterol 2.5 MG/Ipratropium 0.5 MG 3 ML INH SCH ×2 (20:48→23:19)
[2018-12-11] MEDS: Budesonide NEB* 0.5 MG/2 ML NEB.SOLN INH SCH (20:48)
[2018-12-11 20:53] LABS: Activated Partial Thrombo Time 25.3 seconds (26.0-36.3); INR 0.98 (0.77-1.02)
[2018-12-11] MEDS: Heparin VIAL(*) 5000 UNITS/ML VIAL (FIVE THOUSAND) SUBCUT SCH (21:02)
[2018-12-11 21:06] LABS: BUN/Creatinine Ratio 30.8 (8-20); Calcium 8.5 mg/dL (8.6-10.3); EGFR African American 136.9 (>60); EGFR Non-African American 113.2 (>60); Potassium 4.1 mmol/L (3.5-5.0)
[2018-12-11 21:16] LABS: Troponin I 0.04 ng/mL (<0.04)
[2018-12-11] MEDS: ALPRAZolam TAB* 0.25 MG PO PRN (22:27)
[2018-12-11] MEDS: Saline NASAL SPRAY 0.65%* BTL BOTH NARES PRN (22:27)
[2018-12-12] MEDS: Saline NASAL SPRAY 0.65%* BTL BOTH NARES PRN ×2 (02:50→16:38)
[2018-12-12 02:57] LABS: EGFR African American 202.8 (>60); EGFR Non-African American 167.6 (>60)
[2018-12-12 03:05] LABS: Calcium 8.2 mg/dL (8.6-10.3)
[2018-12-12 03:11] LABS: BUN/Creatinine Ratio 30.8 (8-20)
[2018-12-12] MEDS: Albuterol/Ipratropium NEB.SOL* Albuterol 2.5 MG/Ipratropium 0.5 MG 3 ML INH SCH ×6 (03:32→19:22)
[2018-12-12] MEDS: ALPRAZolam TAB* 0.25 MG PO PRN ×3 (04:16→17:58)
[2018-12-12] MEDS ORDERED: hydrALAZINE IV* 20 MG/ML VIAL IV SLOW PU ONE (04:30)
[2018-12-12] MEDS: Heparin VIAL(*) 5000 UNITS/ML VIAL (FIVE THOUSAND) SUBCUT SCH ×3 (04:38→21:20)
[2018-12-12] MEDS: Albuterol 2.5 MG/3 ML NEB.SOL* (0.083%) INH PRN (05:38)
[2018-12-12 05:47] LABS: ABS Basophils 0 10^3/ul (0-0.2); ABS Eosinophils 0 10^3/ul (0-0.6); ABS Lymphocytes 1.7 10^3/ul (1.0-4.8); ABS Monocytes 1.5 10^3/ul (0-0.8); ABS Neutrophils 7.8 10^3/ul (1.5-7.7); ABS Nucleated RBC 0 10^3/ul; Eosinophil % 0.1 %; Hematocrit 34 % (35-47); Hemoglobin 11.4 g/dl (12.0-16.0); Lymphocyte % 15.1 %; Mean Corpuscular HGB Conc 34 g/dl (31-36); Mean Corpuscular Hemoglobin 30 pg (27-31); Mean Corpuscular Volume 89 fL (80-97); Mean Platelet Volume 7.5 fL (7.4-10.4); Nucleated Red Blood Cells % 0.1; Platelet Count 326 10^3/ul (150-450); Red Blood Count 3.76 10^6/ul (4.00-5.40); Red Cell Distribution Width 15 % (10.5-15)
[2018-12-12 06:08] LABS: BUN/Creatinine Ratio 30.8 (8-20); Calcium 8.9 mg/dL (8.6-10.3); EGFR African American 190.9 (>60); EGFR Non-African American 157.7 (>60); Potassium 4.5 mmol/L (3.5-5.0)
[2018-12-12 06:16] LABS: INR 0.94 (0.77-1.02)
[2018-12-12] MEDS: Budesonide NEB* 0.5 MG/2 ML NEB.SOLN INH SCH ×2 (07:41→19:22)
[2018-12-12] MEDS ORDERED: methylPREDNISolone 125 MG* 2 ML VIAL IV ONE (08:19)
--- NOTE | 2018-12-12 08:25 | PN ---
Progress Note - Progress Note Date of Service: 12/12/18 Note: Called to see patient for increase tachypnea and tachycardia: Patient reporting no change in SOB since admission Poor air movement and prolonged expiratory phase. +expiratory wheezes Chart reviewed. Recent COPD exacerbation. Discharged on oral steroids. Received 1 L NS on admission. History of at least moderate aortic stenosis Recheck ABG stat (previous stay CO2 was higher) Discussed potential need need for transfer to ICU and BiPAP based on results with patient Start 125mg IV methylprenisolone now and then 40mg IV BID tomorrow Duoneb treatment now then reevaluate Discussed plan with primary RN Sign over care to primary provider but I will remain available
[2018-12-12] MEDS: Pantoprazole TAB * 40 MG TAB PO SCH (08:40)
[2018-12-12] MEDS: Docusate CAP* 100 MG PO SCH ×2 (08:40→20:02)
[2018-12-12] MEDS: Sertraline* 50 MG TAB PO SCH (08:40)
[2018-12-12] MEDS: Ferrous Gluconate TAB* 324 MG TAB PO SCH (08:40)
[2018-12-12] MEDS: Montelukast Sodium TAB* 10 MG PO SCH (08:40)
[2018-12-12] MEDS: Cetirizine* 10 MG TAB PO SCH (08:40)
[2018-12-12] MEDS: guaiFENesin ER TAB 600 MG PO SCH ×2 (08:40→20:04)
[2018-12-12] MEDS ORDERED: Albuterol/Ipratropium NEB.SOL* Albuterol 2.5 MG/Ipratropium 0.5 MG 3 ML ONE (08:41)
[2018-12-12] MEDS: Aspirin EC TAB* 81 MG TAB.EC PO SCH (08:46)
[2018-12-12] MEDS ORDERED: predniSONE TAB* 20 MG PO SCH (09:00)
[2018-12-12] MEDS ORDERED: Morphine ORAL CONCENTRATE* 5 MG/0.25 ML ORAL.SYRIN SL PRN (15:53)
--- NOTE | 2018-12-12 15:53 | ECHO ---
Patient: ELIZABETH HOGAN [facility] Rec#: [id number] : 1935 Date: 12/12/2018 Age: 83y Height: 150 cm / 59.1 in Weight: 40.8 kg / 89.9 lbs Sex: F BSA: 1.31 Room#: [facility] Admit Date#: 12/11/2018 Type: Inpatient Referring: Chris Vines NP Reading: Mart Hernandez MD Diagnostics Tech: Frannie Heller RN RDCS CC: Yovani Bird MD Transthoracic Echocardiogram Indication: Shortness of breath BP: 128/78 HR: 124 Rhythm: Tachycardia Findings History: HTN, , COPD, former smoker Technical Comments: The study is technically limited due to the patient's history of COPD. The study was technically limited due to the patient's inability to lay in the left lateral decubitus position. Left Ventricle: The left ventricular chamber size is decreased. Mild concentric left ventricular hypertrophy is observed. There is increased basal septal hypertrophy noted without evidence of an increased gradient across the left ventricular outflow tract. Septal knuckle measures 1.4 cm. Global left ventricular wall motion and contractility are within normal limits. The left ventricle appears hyperdynamic. The estimated ejection fraction is greater than 65%. Abnormal left ventricular diastolic function is observed. Abnormal left ventricular diastolic filling is observed, consistent with impaired relaxation. Left Atrium: The left atrial chamber size is normal. Right Ventricle: The right ventricular cavity size is normal. The right ventricular global systolic function is normal. Right Atrium: The right atrial cavity size is normal. Aortic Valve: The aortic valve leaflets are moderately thickened. Systolic excursion of the aortic valve cusps is reduced. There is a trace of aortic regurgitation. There is moderate to severe aortic stenosis.The peak gradients may be underestimated due to the low cardiac output and the suboptimal doppler angles across the valve. Possible severe low gradient aortic stenosis. The mean gradient of the aortic valve is 12 mmHg. The peak instantaneous gradient of the aortic valve is 20 mmHg. The aortic valve area, by peak velocities, is calculated at 1.1 cm2. The aortic valve area, by VTI's, is calculated at 1 cm2. The highest aortic valve velocity was obtained with the standard probe from the A5C view. Mitral Valve: There is mitral annular calcification. The mitral valve leaflets are mildly thickened. Mitral valve leaflet mobility is mildly restricted. There is a trace of mitral regurgitation. There is no evidence of mitral stenosis. Tricuspid Valve: The tricuspid valve leaflets are normal. There is mild tricuspid regurgitation. There is evidence of mild pulmonary hypertension. There is no tricuspid stenosis. Pulmonic Valve: The pulmonic valve appears normal. There is a trace pulmonic regurgitation. There is no pulmonic stenosis. Pericardium: There is no significant pericardial effusion. Aorta: There is no dilatation of the ascending aorta. The aortic arch is not well visualized. There is no dilation of the aortic root. Pulmonary Artery: The main pulmonary artery is not well visualized. Venous: The inferior vena cava appears normal in size. There is a greater than 50% respiratory change in the inferior vena cava dimension. Conclusions Mild concentric left ventricular hypertrophy is observed. There is increased basal septal hypertrophy noted without evidence of an increased gradient across the left ventricular outflow tract. Septal knuckle measures 1.4 cm. The estimated ejection fraction is greater than 65%. Abnormal left ventricular diastolic filling is observed, consistent with impaired relaxation. There is moderate to severe aortic stenosis. The peak gradients may be underestimated due to the low cardiac output and the suboptimal doppler angles across the valve. Possible severe low gradient aortic stenosis. The aortic valve area, by peak velocities, is calculated at 1.1 cm2. The mitral valve leaflets are mildly thickened. There is mild tricuspid regurgitation. There is evidence of mild pulmonary hypertension. Similar to 10/22/2018 Measurements Name Value Normal Range RVIDd (AP) 2D 2.6 cm (0.9 - 2.6) RVDdMajor (2D) 2.7 cm (2.2 - 4.4) RAd ISD 4CH 3.7 cm (3.4 - 4.9) RA (A4C)W 2.7 cm (2.9 - 4.6) IVSd (2D) 1.1 cm (0.6 - 1) LVPWd (2D) 1.1 cm (0.6 - 1) LVIDd (2D) 2.9 cm (3.6 - 5.4) LVIDs (2D) 1.7 cm - LV FS (2D) 41 % (25 - 45) Aortic Annulus 1.8 cm (1.4 - 2.6) Ao root diameter (2D) 2.5 cm (2.1 - 3.5) Ascending Ao 2.8 cm (2.1 - 3.4) LA dimension (AP) 2D 2.5 cm (2.3 - 3.8) LAd ISD 4CH 3.7 cm (2.9 - 5.3) LA ISD 4CH W 3 cm (2.5 - 4.5) Name Value Normal Range MV E-wave Vmax 0.93 m/sec - MV deceleration time 335 msec - MV A-wave Vmax 1.2 m/sec - MV E:A ratio 0.8 ratio - LV septal e' Vmax 0.07 m/sec - LV lateral e' Vmax 0.08 m/sec - LV E:e' septal ratio 13.3 ratio - LV E:e' lateral ratio 11.6 ratio - Name Value Normal Range AV Vmax 2.3 m/sec - AV VTI 47.3 cm - AV peak gradient 20 mmHg - AV mean gradient 12 mmHg - LVOT diameter 1.6 cm - LVOT Vmax 1.2 m/sec - LVOT VTI 26 cm - LVOT peak gradient 6 mmHg - LVOT mean gradient 3 mmHg - DOI (VTI) 0.55 ratio - DOI (Vmax) 0.52 ratio - BETTINA (continuity Vmax) 1.1 cm2 - BETTINA (continuity VTI) 1 cm2 - Name Value Normal Range TR Vmax 3 m/sec - TR peak gradient 36 mmHg - RAP 3 mmHg - RVSP 39 mmHg - IVC diameter 1.3 cm - Name Value Normal Range PV Vmax 0.89 m/sec -
--- NOTE | 2018-12-12 16:08 | PN ---
Subjective Date of Service: 12/12/18 Interval History: Pt is feeling ok currently. She was in significant respiratory distress this AM as documented by Dr. Alexander. She states while her breathing is better now than it was this AM she still thinks it is worse than her baseline. Her son notes that the patient has been having episodes of severe anxiety with snowballing SOB at home. Objective Active Medications: Albuterol (Ventolin 2.5 Mg/3 Ml Neb.Maureen*) 2.5 mg INH Q2H PRN PRN Reason: SOB/WHEEZING Last Admin: 12/12/18 05:38 Dose: 2.5 mg Albuterol/Ipratropium (Duoneb (Albuterol 2.5 Mg/Ipratropium 0.5 Mg)) 1 neb INH [id number] AWAKE [facility] Last Admin: 12/12/18 13:03 Dose: 1 neb Alprazolam (Xanax Tab*) 0.25 mg PO QID PRN PRN Reason: ANXIETY Last Admin: 12/12/18 11:56 Dose: 0.25 mg Aspirin (Aspirin Ec Tab*) 81 mg PO DAILY [facility] Last Admin: 12/12/18 08:46 Dose: 81 mg Budesonide (Pulmicort Neb*) 0.5 mg INH RT.BID [facility] Last Admin: 12/12/18 07:41 Dose: 0.5 mg Cetirizine HCl (Zyrtec*) 10 mg PO DAILY [facility] Last Admin: 12/12/18 08:40 Dose: 10 mg Docusate Sodium (Colace Cap*) 100 mg PO BID [facility] Last Admin: 12/12/18 08:40 Dose: 100 mg Famotidine (Pepcid Tab*) 10 mg PO BID PRN PRN Reason: INDIGESTION Last Admin: 12/11/18 18:25 Dose: 10 mg Ferrous Gluconate (Fergon Tab*) 324 mg PO DAILY [facility] Last Admin: 12/12/18 08:40 Dose: 324 mg Guaifenesin (Mucinex*) 600 mg PO BID [facility] Last Admin: 12/12/18 08:40 Dose: 600 mg Heparin Sodium (Porcine) (Heparin Vial(*)) 5,000 units SUBCUT Q8HR [facility] Last Admin: 12/12/18 15:11 Dose: 5,000 units Methylprednisolone Sodium Succinate (Solu-Medrol 40 Mg) 40 mg IV Q12H [facility] Montelukast Sodium (Singulair Tab*) 10 mg PO DAILY [facility] Last Admin: 12/12/18 08:40 Dose: 10 mg Morphine Sulfate (Morphine Oral Concentrate*) 5 mg SL Q2H PRN PRN Reason: PAIN Oxycodone/Acetaminophen (Percocet 5/325 Tab*) 1 tab PO Q6H PRN PRN Reason: PAIN Last Admin: 12/11/18 18:25 Dose: 1 tab Pantoprazole Sodium (Protonix Tab*) 40 mg PO DAILY [facility] Last Admin: 12/12/18 08:40 Dose: 40 mg Sertraline HCl (Zoloft*) 50 mg PO DAILY [facility] Last Admin: 12/12/18 08:40 Dose: 50 mg Sodium Chloride (Sodium Chloride 0.65% Nasal [place]*) 2 spray BOTH NARES Q2H PRN PRN Reason: NASAL CONGESTION Vital Signs - 8 hr 12/12/18 12/12/18 12/12/18 08:44 11:28 11:56 Temperature 98.4 F Pulse Rate 110 107 Respiratory 20 18 20 Rate Blood Pressure 152/73 (mmHg) O2 Sat by Pulse 98 98 Oximetry 12/12/18 12/12/18 13:06 15:13 Temperature Pulse Rate 104 Respiratory 20 18 Rate Blood Pressure (mmHg) O2 Sat by Pulse 98 Oximetry Oxygen Devices in Use Now: Nasal Cannula Appearance: Elderly petite female sitting up in bed, NAD Eyes: No Scleral Icterus Ears/Nose/Mouth/Throat: Mucous Membranes Moist Respiratory: Symmetrical Chest Expansion and Respiratory Effort, - - markedly decreased breath sounds throughout but clear Cardiovascular: RRR, No Edema, - - III/ systolic murmur at the RUSB Abdominal: NL Sounds; No Tenderness; No Distention Extremities: No Clubbing, Cyanosis Skin: No Nodules or Sclerosis Neurological: Alert and Oriented x 3 - Nutrition: Malnutrition Diagnosis/Plan Malnutrition Assessment by Registered Dietitian: Malnutrition Assessment Clinical Characteristics Acute,Severe Malnutrition Assessment: - 50% (or less than) estimated energy Criteria expenditure > 5 days - 7.2% - 17.5% wt loss since 10/20/18 (x < 2 months) Malnutrition Assessment: - Pt dislikes Ensure Enlive as is causes Interventions congestion - Unsure if pt has tried Ensure Clear, although will refrain at this time due to fluid restriction - Will trial Ensure pudding daily @ D: 170 kcals , 4 grams protein Malnutrition Assessment: Goals 1. Adequate PO intake to promote repletion of lean body mass, maintain appropriate hydration, and prevent additional undesired wt loss - Goal: > 50% of meals Result Diagrams: 12/12/18 05:33 12/12/18 05:33 Microbiology and Other Data: Microbiology 12/11/18 18:00 Urine Culture - Preliminary Urine Klebsiella Pneumoniae 12/11/18 18:00 Legionella Urinary Antigen - Final Urine Negative Legionella Antigen Streptococcus pneumoniae Ag Screen - Final Negative S. pneumo Antigen 12/11/18 13:26 Influenza Types A,B Antigen - Final Nasal Specimen received for Influenza A/B Molecular testing Assess/Plan/Problems-Billing Ms Gomez is an 83 yo F with advanced COPD with chronic hypoxic respiratory failure on 2.5L O2 continuously, moderate to severe and anxiety who presented to the ER just 2 days after discharge from a prolonged hospitalization from 12/01/18-12/09/18 where she was treated for a COPD exacerbation, now with c/o worsened SOB. - Patient Problems (1) COPD (chronic obstructive pulmonary disease) Current Visit: Yes Status: Acute Code(s): J44.9 - CHRONIC OBSTRUCTIVE PULMONARY DISEASE, UNSPECIFIED SNOMED Code(s): 22056910 Comment: I do not believe the paitent is in an exacerbation of COPD. My suspicion is that the patient became anxious at home and did not know how to control her symptoms which prompted her return to the hospital. I have initiated roxanol for air hunger. She was started on solumedrol this AM when she was in acute respiratory distress. Will continue this into tomorrow but if now wheezing this could be changed back to prednisone which was being tapered off. A long converstation was had today with the patient and her son about her current situation and possible hospice. The patient is contemplating her options. Palliative care consult has been requested. The patient made it very clear that she would like to be home feeling better and not having to go back and forth to the hospital. I believe she would be a good hospice candidate though the question is where she would receive those services as her neice has stated to nursing, that she did not think she could continue to be the patient' s primary critical care rn. (2) Anxiety Current Visit: Yes Status: Acute Code(s): F41.9 - ANXIETY DISORDER, UNSPECIFIED SNOMED Code(s): 70135109 Comment: The patient continues to have significant episodes of anxiety. She remains on sertraline 50mg daily and prn xanax. Continue supportive care. We have initiated roxanol for air hunger which may in turn help with her anxiety related to be dyspnic. (3) Aortic stenosis Current Visit: Yes Status: Acute Code(s): I35.0 - NONRHEUMATIC AORTIC (VALVE ) STENOSIS SNOMED Code(s): 39731153 Comment: Diagnosis noted. (4) DVT prophylaxis Current Visit: Yes Status: Acute Code(s): UDO4274 - SNOMED Code(s): 259720517 Comment: SQ heparin (5) Full code status Current Visit: Yes Status: Acute Code(s): Z78.9 - OTHER SPECIFIED HEALTH STATUS SNOMED Code(s): 190052003 Comment: Pt contemplating DNR/DNI
[2018-12-12] MEDS: Morphine ORAL CONCENTRATE* 5 MG/0.25 ML ORAL.SYRIN SL PRN (17:58)
[2018-12-13] MEDS: Albuterol/Ipratropium NEB.SOL* Albuterol 2.5 MG/Ipratropium 0.5 MG 3 ML INH SCH ×4 (01:00→19:05)
[2018-12-13] MEDS: Morphine ORAL CONCENTRATE* 5 MG/0.25 ML ORAL.SYRIN SL PRN ×4 (01:31→23:24)
[2018-12-13] MEDS: ALPRAZolam TAB* 0.25 MG PO PRN ×3 (01:31→23:24)
[2018-12-13] MEDS: Heparin VIAL(*) 5000 UNITS/ML VIAL (FIVE THOUSAND) SUBCUT SCH ×3 (05:31→22:21)
[2018-12-13] MEDS: Budesonide NEB* 0.5 MG/2 ML NEB.SOLN INH SCH ×2 (07:07→19:05)
[2018-12-13] MEDS: Cetirizine* 10 MG TAB PO SCH (07:53)
[2018-12-13] MEDS: Aspirin EC TAB* 81 MG TAB.EC PO SCH (07:53)
[2018-12-13] MEDS: Ferrous Gluconate TAB* 324 MG TAB PO SCH (07:53)
[2018-12-13] MEDS: guaiFENesin ER TAB 600 MG PO SCH ×2 (07:53→20:25)
[2018-12-13] MEDS: methylPREDNISolone SOD 40 MG* 1 ML VIAL IV SCH ×2 (07:53→20:25)
[2018-12-13] MEDS: Montelukast Sodium TAB* 10 MG PO SCH (07:53)
[2018-12-13] MEDS: Pantoprazole TAB * 40 MG TAB PO SCH (07:53)
[2018-12-13] MEDS: Sertraline* 50 MG TAB PO SCH (07:53)
[2018-12-13] MEDS: Docusate CAP* 100 MG PO SCH ×2 (07:53→20:25)
[2018-12-13] MEDS: Saline NASAL SPRAY 0.65%* BTL BOTH NARES PRN (08:04)
--- NOTE | 2018-12-13 16:43 | PN ---
Subjective Date of Service: 12/13/18 Interval History: Ms. Gomez' breathing is comfortable. She is upset because her son and daughter in law just left and they were encouraging her to go to a jail and she does not want to go to a jail. This morning she was complaining of a lump in her throat to her nurse, which she says is now resolved. She feels her anxiety is well controlled right now. She wants to talk to her niece, who she lives with, about whether she feels she can come home or not. Objective Active Medications: Albuterol (Ventolin 2.5 Mg/3 Ml Neb.Maureen*) 2.5 mg INH Q2H PRN PRN Reason: SOB/WHEEZING Last Admin: 12/12/18 05:38 Dose: 2.5 mg Albuterol/Ipratropium (Duoneb (Albuterol 2.5 Mg/Ipratropium 0.5 Mg)) 1 neb INH [id number] AWAKE [facility] Last Admin: 12/13/18 13:08 Dose: 1 neb Alprazolam (Xanax Tab*) 0.25 mg PO QID PRN PRN Reason: ANXIETY Last Admin: 12/13/18 07:52 Dose: 0.25 mg Aspirin (Aspirin Ec Tab*) 81 mg PO DAILY [facility] Last Admin: 12/13/18 07:53 Dose: 81 mg Budesonide (Pulmicort Neb*) 0.5 mg INH RT.BID [facility] Last Admin: 12/13/18 07:07 Dose: 0.5 mg Cetirizine HCl (Zyrtec*) 10 mg PO DAILY [facility] Last Admin: 12/13/18 07:53 Dose: 10 mg Docusate Sodium (Colace Cap*) 100 mg PO BID [facility] Last Admin: 12/13/18 07:53 Dose: 100 mg Famotidine (Pepcid Tab*) 10 mg PO BID PRN PRN Reason: INDIGESTION Last Admin: 12/11/18 18:25 Dose: 10 mg Ferrous Gluconate (Fergon Tab*) 324 mg PO DAILY [facility] Last Admin: 12/13/18 07:53 Dose: 324 mg Guaifenesin (Mucinex*) 600 mg PO BID [facility] Last Admin: 12/13/18 07:53 Dose: 600 mg Heparin Sodium (Porcine) (Heparin Vial(*)) 5,000 units SUBCUT Q8HR [facility] Last Admin: 12/13/18 14:20 Dose: 5,000 units Methylprednisolone Sodium Succinate (Solu-Medrol 40 Mg) 40 mg IV Q12H [facility] Last Admin: 12/13/18 07:53 Dose: 40 mg Montelukast Sodium (Singulair Tab*) 10 mg PO DAILY [facility] Last Admin: 12/13/18 07:53 Dose: 10 mg Morphine Sulfate (Morphine Oral Concentrate*) 5 mg SL Q2H PRN PRN Reason: air hunger Last Admin: 12/13/18 08:09 Dose: 5 mg Oxycodone/Acetaminophen (Percocet 5/325 Tab*) 1 tab PO Q6H PRN PRN Reason: PAIN Last Admin: 12/11/18 18:25 Dose: 1 tab Pantoprazole Sodium (Protonix Tab*) 40 mg PO DAILY [facility] Last Admin: 12/13/18 07:53 Dose: 40 mg Sertraline HCl (Zoloft*) 50 mg PO DAILY [facility] Last Admin: 12/13/18 07:53 Dose: 50 mg Sodium Chloride (Sodium Chloride 0.65% Nasal [place]*) 2 spray BOTH NARES Q2H PRN PRN Reason: NASAL CONGESTION Last Admin: 12/13/18 08:04 Dose: 2 spray Vital Signs - 8 hr 12/13/18 12/13/18 12/13/18 09:50 13:09 15:22 Temperature 98.2 F Pulse Rate 105 101 Respiratory 18 18 16 Rate Blood Pressure 140/71 (mmHg) O2 Sat by Pulse 98 99 Oximetry Oxygen Devices in Use Now: Nasal Cannula Appearance: alert, comfortable, thin, no distress Eyes: No Scleral Icterus Ears/Nose/Mouth/Throat: NL Teeth, Lips, Gums Neck: NL Appearance and Movements; NL JVP Respiratory: Symmetrical Chest Expansion and Respiratory Effort, - - decreased breath sounds throughout Cardiovascular: NL Sounds; No Murmurs; No JVD, RRR Abdominal: NL Sounds; No Tenderness; No Distention Lymphatic: No Cervical Adenopathy, - - systolic murmur throughout Extremities: No Edema, - - thin skin with scattered echymoses Skin: No Rash or Ulcers Neurological: Alert and Oriented x 3 - Nutrition: Malnutrition Diagnosis/Plan Malnutrition Assessment by Registered Dietitian: Malnutrition Assessment Clinical Characteristics Acute,Severe Malnutrition Assessment: - 50% (or less than) estimated energy Criteria expenditure > 5 days - 7.2% - 17.5% wt loss since 10/20/18 (x < 2 months) Malnutrition Assessment: - Pt dislikes Ensure Enlive as is causes Interventions congestion - Unsure if pt has tried Ensure Clear, although will refrain at this time due to fluid restriction - Will trial Ensure pudding daily @ D: 170 kcals , 4 grams protein Malnutrition Assessment: Goals 1. Adequate PO intake to promote repletion of lean body mass, maintain appropriate hydration, and prevent additional undesired wt loss - Goal: > 50% of meals Result Diagrams: 12/12/18 05:33 12/12/18 05:33 Microbiology and Other Data: Microbiology 12/11/18 18:00 Urine Culture - Preliminary Urine Klebsiella Pneumoniae 12/11/18 18:00 Legionella Urinary Antigen - Final Urine Negative Legionella Antigen Streptococcus pneumoniae Ag Screen - Final Negative S. pneumo Antigen 12/11/18 13:26 Influenza Types A,B Antigen - Final Nasal Specimen received for Influenza A/B Molecular testing Assess/Plan/Problems-Billing Ms Gomez is an 83 yo F with advanced COPD with chronic hypoxic respiratory failure on 2.5L O2 continuously, moderate to severe and anxiety who presented to the ER just 2 days after discharge from a prolonged hospitalization from 12/01/18-12/09/18 where she was treated for a COPD exacerbation, now with c/o worsened SOB. - Patient Problems (1) Anxiety Current Visit: Yes Status: Acute Code(s): F41.9 - ANXIETY DISORDER, UNSPECIFIED SNOMED Code(s): 13492077 Comment: Now with improved controlled. She remains on sertraline 50mg daily and prn xanax. Continue supportive care. We have initiated roxanol for air hunger (2) Aortic stenosis Current Visit: Yes Status: Acute Code(s): I35.0 - NONRHEUMATIC AORTIC (VALVE ) STENOSIS SNOMED Code(s): 56092342 Comment: stable, volume stable (3) COPD exacerbation Current Visit: No Status: Acute Code(s): J44.1 - CHRONIC OBSTRUCTIVE PULMONARY DISEASE W (ACUTE) EXACERBATION SNOMED Code(s): 685293248 Comment: Acute on Chronic Hypoxic Respiratory Failure Poor reserve; pain and anxiety amplify symptoms Continue nebs and solumedrol and inhalers (4) Compression fracture Current Visit: No Status: Acute Code(s): CNQ8458 - SNOMED Code(s): 324718031 Comment: T9 fracture noted no pain at this time
[2018-12-13] MEDS: Albuterol 2.5 MG/3 ML NEB.SOL* (0.083%) INH PRN (23:35)
[2018-12-14] MEDS: Albuterol/Ipratropium NEB.SOL* Albuterol 2.5 MG/Ipratropium 0.5 MG 3 ML INH SCH ×4 (00:55→19:13)
[2018-12-14 04:26] LABS: ABS Basophils 0.1 10^3/ul (0-0.2); ABS Eosinophils 0 10^3/ul (0-0.6); ABS Lymphocytes 0.7 10^3/ul (1.0-4.8); ABS Monocytes 0.6 10^3/ul (0-0.8); ABS Neutrophils 9.5 10^3/ul (1.5-7.7); ABS Nucleated RBC 0 10^3/ul; Eosinophil % 0.1 %; Hematocrit 32 % (35-47); Hemoglobin 10.6 g/dl (12.0-16.0); Lymphocyte % 6.4 %; Mean Corpuscular HGB Conc 33 g/dl (31-36); Mean Corpuscular Hemoglobin 30 pg (27-31); Mean Corpuscular Volume 91 fL (80-97); Mean Platelet Volume 7.4 fL (7.4-10.4); Nucleated Red Blood Cells % 0; Platelet Count 300 10^3/ul (150-450); Red Blood Count 3.57 10^6/ul (4.00-5.40); Red Cell Distribution Width 15 % (10.5-15); White Blood Count 10.9 10^3/ul (3.5-10.8)
[2018-12-14] MEDS: ALPRAZolam TAB* 0.25 MG PO PRN ×4 (04:34→20:47)
[2018-12-14] MEDS: Morphine ORAL CONCENTRATE* 5 MG/0.25 ML ORAL.SYRIN SL PRN ×4 (04:38→16:31)
[2018-12-14] MEDS: Fluticasone NASAL SPRAY 50MCG* 16 gm SPRAY BTL BOTH NARES SCH (05:13)
[2018-12-14] MEDS: Heparin VIAL(*) 5000 UNITS/ML VIAL (FIVE THOUSAND) SUBCUT SCH ×3 (05:14→22:35)
[2018-12-14] MEDS: Budesonide NEB* 0.5 MG/2 ML NEB.SOLN INH SCH ×2 (07:06→19:13)
[2018-12-14] MEDS: methylPREDNISolone SOD 40 MG* 1 ML VIAL IV SCH ×2 (08:32→20:48)
[2018-12-14] MEDS: Pantoprazole TAB * 40 MG TAB PO SCH (08:34)
[2018-12-14] MEDS: Ferrous Gluconate TAB* 324 MG TAB PO SCH (08:35)
[2018-12-14] MEDS: Montelukast Sodium TAB* 10 MG PO SCH (08:35)
[2018-12-14] MEDS: Sertraline* 50 MG TAB PO SCH (08:35)
[2018-12-14] MEDS: Aspirin EC TAB* 81 MG TAB.EC PO SCH (08:35)
[2018-12-14] MEDS: Cetirizine* 10 MG TAB PO SCH (08:35)
[2018-12-14] MEDS: Docusate CAP* 100 MG PO SCH ×2 (08:35→20:47)
[2018-12-14] MEDS: guaiFENesin ER TAB 600 MG PO SCH ×2 (08:36→20:47)
--- NOTE | 2018-12-14 16:16 | PN ---
Subjective Date of Service: 12/14/18 Interval History: Feeling very sad today and repeats "no one wants me." She did talk with her niece last night, who told her she cannot take care of her. They rent their trailer. Her breathing feels much improved. She has no pain. She feels anxious but otherwise she thinks she is getting better. Objective Active Medications: Albuterol (Ventolin 2.5 Mg/3 Ml Neb.Maureen*) 2.5 mg INH Q2H PRN PRN Reason: SOB/WHEEZING Last Admin: 12/13/18 23:35 Dose: 2.5 mg Albuterol/Ipratropium (Duoneb (Albuterol 2.5 Mg/Ipratropium 0.5 Mg)) 1 neb INH [id number] [facility] Last Admin: 12/14/18 12:28 Dose: 1 neb Alprazolam (Xanax Tab*) 0.25 mg PO QID PRN PRN Reason: ANXIETY Last Admin: 12/14/18 10:52 Dose: 0.25 mg Aspirin (Aspirin Ec Tab*) 81 mg PO DAILY [facility] Last Admin: 12/14/18 08:35 Dose: 81 mg Budesonide (Pulmicort Neb*) 0.5 mg INH RT.BID [facility] Last Admin: 12/14/18 07:06 Dose: 0.5 mg Cetirizine HCl (Zyrtec*) 10 mg PO DAILY [facility] Last Admin: 12/14/18 08:35 Dose: 10 mg Docusate Sodium (Colace Cap*) 100 mg PO BID [facility] Last Admin: 12/14/18 08:35 Dose: 100 mg Famotidine (Pepcid Tab*) 10 mg PO BID PRN PRN Reason: INDIGESTION Last Admin: 12/11/18 18:25 Dose: 10 mg Ferrous Gluconate (Fergon Tab*) 324 mg PO DAILY [facility] Last Admin: 12/14/18 08:35 Dose: 324 mg Fluticasone Propionate (Flonase Nasal [place] 50mcg*) 2 spray BOTH NARES 0900 [facility] Last Admin: 12/14/18 05:13 Dose: 2 spray Guaifenesin (Mucinex*) 600 mg PO BID [facility] Last Admin: 12/14/18 08:36 Dose: 600 mg Heparin Sodium (Porcine) (Heparin Vial(*)) 5,000 units SUBCUT Q8HR [facility] Last Admin: 12/14/18 13:28 Dose: 5,000 units Methylprednisolone Sodium Succinate (Solu-Medrol 40 Mg) 40 mg IV Q12H [facility] Last Admin: 12/14/18 08:32 Dose: 40 mg Montelukast Sodium (Singulair Tab*) 10 mg PO DAILY [facility] Last Admin: 12/14/18 08:35 Dose: 10 mg Morphine Sulfate (Morphine Oral Concentrate*) 5 mg SL Q2H PRN PRN Reason: air hunger Last Admin: 12/14/18 13:28 Dose: 5 mg Oxycodone/Acetaminophen (Percocet 5/325 Tab*) 1 tab PO Q6H PRN PRN Reason: PAIN Last Admin: 12/11/18 18:25 Dose: 1 tab Pantoprazole Sodium (Protonix Tab*) 40 mg PO DAILY [facility] Last Admin: 12/14/18 08:34 Dose: 40 mg Sertraline HCl (Zoloft*) 50 mg PO DAILY [facility] Last Admin: 12/14/18 08:35 Dose: 50 mg Sodium Chloride (Sodium Chloride 0.65% Nasal [place]*) 2 spray BOTH NARES Q2H PRN PRN Reason: NASAL CONGESTION Last Admin: 12/13/18 08:04 Dose: 2 spray Vital Signs - 8 hr 12/14/18 12/14/18 12/14/18 08:29 10:51 10:52 Temperature Pulse Rate Respiratory 18 16 16 Rate Blood Pressure (mmHg) O2 Sat by Pulse Oximetry 12/14/18 12/14/18 12/14/18 11:06 12:29 13:27 Temperature 98.7 F Pulse Rate 100 92 Respiratory 16 18 16 Rate Blood Pressure 151/71 (mmHg) O2 Sat by Pulse 99 96 Oximetry 12/14/18 13:28 Temperature Pulse Rate Respiratory 16 Rate Blood Pressure (mmHg) O2 Sat by Pulse Oximetry Oxygen Devices in Use Now: Nasal Cannula Appearance: alert, frail, unable to speak in full sentences but in no distress Eyes: No Scleral Icterus Ears/Nose/Mouth/Throat: NL Teeth, Lips, Gums Neck: NL Appearance and Movements; NL JVP Respiratory: - - poor air movement b/l but improved from yesterday, no wheezing Cardiovascular: NL Sounds; No Murmurs; No JVD, RRR Abdominal: NL Sounds; No Tenderness; No Distention Lymphatic: No Cervical Adenopathy Extremities: No Edema Skin: - - thin skin Neurological: Alert and Oriented x 3 - Nutrition: Malnutrition Diagnosis/Plan Malnutrition Assessment by Registered Dietitian: Malnutrition Assessment Clinical Characteristics Acute,Severe Malnutrition Assessment: - 50% (or less than) estimated energy Criteria expenditure > 5 days - 7.2% - 17.5% wt loss since 10/20/18 (x < 2 months) Malnutrition Assessment: - Pt dislikes Ensure Enlive as is causes Interventions congestion - Unsure if pt has tried Ensure Clear, although will refrain at this time due to fluid restriction - Will trial Ensure pudding daily @ D: 170 kcals , 4 grams protein Malnutrition Assessment: Goals 1. Adequate PO intake to promote repletion of lean body mass, maintain appropriate hydration, and prevent additional undesired wt loss - Goal: > 50% of meals Result Diagrams: 12/14/18 04:16 12/12/18 05:33 Microbiology and Other Data: Microbiology 12/11/18 18:00 Urine Culture - Preliminary Urine Klebsiella Pneumoniae 12/11/18 18:00 Legionella Urinary Antigen - Final Urine Negative Legionella Antigen Streptococcus pneumoniae Ag Screen - Final Negative S. pneumo Antigen 12/11/18 13:26 Influenza Types A,B Antigen - Final Nasal Specimen received for Influenza A/B Molecular testing Assess/Plan/Problems-Billing Ms Gomez is an 83 yo F with advanced COPD with chronic hypoxic respiratory failure on 2.5L O2 continuously, moderate to severe and anxiety who presented to the ER just 2 days after discharge from a prolonged hospitalization from 12/01/18-12/09/18 where she was treated for a COPD exacerbation, now with c/o worsened SOB. - Patient Problems (1) COPD exacerbation Current Visit: No Status: Acute Code(s): J44.1 - CHRONIC OBSTRUCTIVE PULMONARY DISEASE W (ACUTE) EXACERBATION SNOMED Code(s): 644022722 Comment: Acute on Chronic Hypoxic Respiratory Failure Poor reserve; pain and anxiety amplify symptoms Continue nebs and solumedrol and inhalers I have discussed her case with Dr. Blake and asked her to see Yelitza tomorrow She may qualify for hospice or palliative services, which is especially pertinent for dispo planning since none of Yelitza's family will care for her at discharge, and she vehemently does not want to go to a long-term. (2) Anxiety Current Visit: Yes Status: Acute Code(s): F41.9 - ANXIETY DISORDER, UNSPECIFIED SNOMED Code(s): 20254597 Comment: Now with improved controlled. She remains on sertraline 50mg daily and prn xanax. Continue supportive care. We have initiated roxanol for air hunger (3) Aortic stenosis Current Visit: Yes Status: Acute Code(s): I35.0 - NONRHEUMATIC AORTIC (VALVE ) STENOSIS SNOMED Code(s): 44555596 Comment: stable, volume stable (4) Compression fracture Current Visit: No Status: Acute Code(s): VHG2481 - SNOMED Code(s): 000107460 Comment: T9 fracture noted no pain at this time with brace
[2018-12-15] MEDS: Albuterol/Ipratropium NEB.SOL* Albuterol 2.5 MG/Ipratropium 0.5 MG 3 ML INH SCH ×4 (01:13→20:28)
[2018-12-15] MEDS: Morphine ORAL CONCENTRATE* 5 MG/0.25 ML ORAL.SYRIN SL PRN ×5 (02:55→21:23)
[2018-12-15] MEDS: ALPRAZolam TAB* 0.25 MG PO PRN ×4 (02:55→16:42)
[2018-12-15] MEDS: Heparin VIAL(*) 5000 UNITS/ML VIAL (FIVE THOUSAND) SUBCUT SCH ×3 (05:46→21:23)
[2018-12-15] MEDS: Budesonide NEB* 0.5 MG/2 ML NEB.SOLN INH SCH ×2 (07:57→20:28)
[2018-12-15] MEDS: Docusate CAP* 100 MG PO SCH ×2 (08:08→21:24)
[2018-12-15] MEDS: Ferrous Gluconate TAB* 324 MG TAB PO SCH (08:08)
[2018-12-15] MEDS: Pantoprazole TAB * 40 MG TAB PO SCH (08:09)
[2018-12-15] MEDS: Montelukast Sodium TAB* 10 MG PO SCH (08:09)
[2018-12-15] MEDS: Sertraline* 50 MG TAB PO SCH (08:09)
[2018-12-15] MEDS: Aspirin EC TAB* 81 MG TAB.EC PO SCH (08:09)
[2018-12-15] MEDS: Cetirizine* 10 MG TAB PO SCH (08:09)
[2018-12-15] MEDS: guaiFENesin ER TAB 600 MG PO SCH ×2 (08:09→21:24)
[2018-12-15] MEDS: methylPREDNISolone SOD 40 MG* 1 ML VIAL IV SCH (08:09)
[2018-12-15] MEDS: Fluticasone NASAL SPRAY 50MCG* 16 gm SPRAY BTL BOTH NARES SCH (08:09)
--- NOTE | 2018-12-15 13:45 | CONSULT ---
Palliative / Hospice Consult Ordering Provider: Alejandra Calix - [facility]-PCP - Subjective Code Status: DNR Advance Directives Location: Unable to Locate [facility] Part A Completed: Yes - completed by Dr. Calix 12/13 [facility] Part E Completed:: Yes - completed by Dr. Calix 12/13 - History or Present Illness History or Present Illness: 83 yo female presented to ER with increasing SOB and CP who has endstage COPD. She was hospitalized 10/20- and then 12/01- both for COPD exacerbation. her other medical problems include home O2 use, HTN, mod-severe, anxiety and anemia. Ex tob user, but has a son who is her HCP. Echo >65% mild pulmonary HTN, alb 3.8, tprot 6.1 BNP 93 CRP 4.77. She has been living with a niece but the niece doesn't want to care for her anymore because she is requiring more care. She wants to go back to her home. She realizes her COPD is getting worse and will be responsible for her . Overall her health has declined. Pt didn't want me to call her son says he is too busy. Lab Values: Laboratory Last Values WBC 10.9 10^3/ul (3.5-10.8) H 12/14/18 04:16 RBC 3.57 10^6/ul (4.00-5.40) L 12/14/18 04:16 Hgb 10.6 g/dl (12.0-16.0) L 12/14/18 04:16 Hct 32 % (35-47) L 12/14/18 04:16 MCV 91 fL (80-97) 12/14/18 04:16 MCH 30 pg (27-31) 12/14/18 04:16 MCHC 33 g/dl (31-36) 12/14/18 04:16 RDW 15 % (10.5-15) 12/14/18 04:16 Plt Count 300 10^3/ul (150-450) 12/14/18 04:16 MPV 7.4 fL (7.4-10.4) 12/14/18 04:16 Neut % (Auto) 86.9 % 12/14/18 04:16 Lymph % (Auto) 6.4 % 12/14/18 04:16 Liberty % (Auto) 5.9 % 12/14/18 04:16 Eos % (Auto) 0.1 % 12/14/18 04:16 Baso % (Auto) 0.7 % 12/14/18 04:16 Absolute Neuts (auto) 9.5 10^3/ul (1.5-7.7) H 12/14/18 04:16 Absolute Lymphs (auto) 0.7 10^3/ul (1.0-4.8) L 12/14/18 04:16 Absolute Monos (auto) 0.6 10^3/ul (0-0.8) 12/14/18 04:16 Absolute Eos (auto) 0 10^3/ul (0-0.6) 12/14/18 04:16 Absolute Basos (auto) 0.1 10^3/ul (0-0.2) 12/14/18 04:16 Absolute Nucleated RBC 0 10^3/ul 12/14/18 04:16 Nucleated RBC % 0 12/14/18 04:16 ESR 5 mm/Hr (0-40) 12/11/18 11:11 INR (Anticoag Therapy) 0.94 (0.77-1.02) 12/12/18 05:33 APTT 25.3 seconds (26.0-36.3) L 12/11/18 20:37 D-Dimer, Quantitative 351 ng/mL (Less Than 230) H 12/11/18 11:11 Patient Temperature Not Reportable 12/12/18 08:40 ABG pH 7.36 (7.35-7.45) 12/12/18 08:40 ABG pH (Temp Correct) Not Reportable 12/12/18 08:40 ABG pCO2 62 mmHg (35-45) H 12/12/18 08:40 ABG pCO2 (Temp Corrct Not Reportable 12/12/18 08:40 ABG pO2 107 mmHg (80-100) H 12/12/18 08:40 ABG pO2 (Temp Correct Not Reportable 12/12/18 08:40 ABG HCO3 30.7 mmol/L (19-31) 12/12/18 08:40 ABG O2 Saturation 99.2 % (94.0-98.0) H 12/12/18 08:40 ABG Base Excess 7.4 mmol/L (-2.0-2.0) H 12/12/18 08:40 Respiration Rate Not Reportable 12/12/18 08:40 O2 Delivery Device nasal cannula 2lpm 12/12/18 08:40 Ventilator Type Not Reportable 12/12/18 08:40 Vent Mode Not Reportable 12/12/18 08:40 FiO2 Not Reportable 12/12/18 08:40 Inspiratory Time Not Reportable 12/12/18 08:40 PEEP Not Reportable 12/12/18 08:40 Pressure Support Not Reportable 12/12/18 08:40 Pressure Control Not Reportable 12/12/18 08:40 EPAP Not Reportable 12/12/18 08:40 IPAP Not Reportable 12/12/18 08:40 BiPAP Not Reportable 12/12/18 08:40 Sodium 128 mmol/L (135-145) L 12/12/18 05:33 Potassium 4.5 mmol/L (3.5-5.0) 12/12/18 05:33 Chloride 88 mmol/L (101-111) L 12/12/18 05:33 Carbon Dioxide 35 mmol/L (22-32) H 12/12/18 05:33 Anion Gap 5 mmol/L (2-11) 12/12/18 05:33 BUN 12 mg/dL (6-24) 12/12/18 05:33 Creatinine 0.39 mg/dL (0.51-0.95) L 12/12/18 05:33 Est GFR ( Amer) 190.9 (>60) 12/12/18 05:33 Est GFR (Non-Af Amer) 157.7 (>60) 12/12/18 05:33 BUN/Creatinine Ratio 30.8 (8-20) H 12/12/18 05:33 Glucose 100 mg/dL (70-100) 12/12/18 05:33 Lactic Acid 0.7 mmol/L (0.5-2.0) 12/11/18 11:13 Calcium 8.9 mg/dL (8.6-10.3) 12/12/18 05:33 Magnesium 1.8 mg/dL (1.9-2.7) L 12/11/18 11:11 Total Bilirubin 0.70 mg/dL (0.2-1.0) 12/11/18 11:11 AST 25 U/L (13-39) 12/11/18 11:11 ALT 25 U/L (7-52) 12/11/18 11:11 Alkaline Phosphatase 111 U/L (34-104) H 12/11/18 11:11 Total Creatine Kinase 118 U/L (10-223) 12/11/18 11:11 CK-MB (CK-2) 6.9 ng/mL (0.6-6.3) H 12/11/18 11:11 Troponin I 0.04 ng/mL (<0.04) H* 12/11/18 20:37 C-Reactive Protein 4.77 mg/L (<8.01) 12/11/18 11:11 B-Natriuretic Peptide 93 pg/mL (<=100) 12/11/18 11:11 Total Protein 6.1 g/dL (6.4-8.9) L 12/11/18 11:11 Albumin 3.8 g/dL (3.2-5.2) 12/11/18 11:11 Globulin 2.3 g/dL (2-4) 12/11/18 11:11 Albumin/Globulin Ratio 1.7 (1-3) 12/11/18 11:11 TSH 1.68 mcIU/mL (0.34-5.60) 12/11/18 11:11 Cortisol 10.07 mcg/dL 12/11/18 11:11 Urine Color Yellow 12/11/18 18:00 Urine Appearance Clear 12/11/18 18:00 Urine pH 6.0 (5-9) 12/11/18 18:00 Ur Specific [place] 1.050 (1.010-1.030) H 12/11/18 18:00 Urine Protein Negative (Negative) 12/11/18 18:00 Urine Ketones 1+ (Negative) A 12/11/18 18:00 Urine Blood 1+ (Negative) A 12/11/18 18:00 Urine Nitrate Negative (Negative) 12/11/18 18:00 Urine Bilirubin Negative (Negative) 12/11/18 18:00 Urine Urobilinogen Negative (Negative) 12/11/18 18:00 Ur Leukocyte Esterase Negative (Negative) 12/11/18 18:00 Urine WBC (Auto) Trace(0-5/hpf) (Absent) 12/11/18 18:00 Urine RBC (Auto) 1+(3-5/hpf) (Absent) A 12/11/18 18:00 Ur Squamous Epith Cells Present (Absent) A 12/11/18 18:00 Urine Bacteria Absent (Absent) 12/11/18 18:00 Urine Osmolality 246 mOsm/kg (100-1150) 12/13/18 00:01 U Sodium Concentration 19 mmol/L 12/13/18 00:01 Urine Glucose 1+(50 mg/dl) (Negative) A 12/11/18 18:00 Influenza A (Rapid) Negative (Negative) 12/11/18 13:41 Influenza B (Rapid) Negative (Negative) 12/11/18 13:41 - Objective Active Medications: Albuterol (Ventolin 2.5 Mg/3 Ml Neb.Maureen*) 2.5 mg INH Q2H PRN PRN Reason: SOB/WHEEZING Last Admin: 12/13/18 23:35 Dose: 2.5 mg Albuterol/Ipratropium (Duoneb (Albuterol 2.5 Mg/Ipratropium 0.5 Mg)) 1 neb INH [id number] [facility] Last Admin: 12/15/18 13:21 Dose: 1 neb Alprazolam (Xanax Tab*) 0.25 mg PO QID PRN PRN Reason: ANXIETY Last Admin: 12/15/18 12:49 Dose: 0.25 mg Aspirin (Aspirin Ec Tab*) 81 mg PO DAILY [facility] Last Admin: 12/15/18 08:09 Dose: 81 mg Budesonide (Pulmicort Neb*) 0.5 mg INH RT.BID [facility] Last Admin: 12/15/18 07:57 Dose: 0.5 mg Cetirizine HCl (Zyrtec*) 10 mg PO DAILY [facility] Last Admin: 12/15/18 08:09 Dose: 10 mg Docusate Sodium (Colace Cap*) 100 mg PO BID [facility] Last Admin: 12/15/18 08:08 Dose: 100 mg Famotidine (Pepcid Tab*) 10 mg PO BID PRN PRN Reason: INDIGESTION Last Admin: 12/11/18 18:25 Dose: 10 mg Ferrous Gluconate (Fergon Tab*) 324 mg PO DAILY [facility] Last Admin: 12/15/18 08:08 Dose: 324 mg Fluticasone Propionate (Flonase Nasal [place] 50mcg*) 2 spray BOTH NARES 0900 [facility] Last Admin: 12/15/18 08:09 Dose: 2 spray Guaifenesin (Mucinex*) 600 mg PO BID [facility] Last Admin: 12/15/18 08:09 Dose: 600 mg Heparin Sodium (Porcine) (Heparin Vial(*)) 5,000 units SUBCUT Q8HR [facility] Last Admin: 12/15/18 13:02 Dose: 5,000 units Methylprednisolone Sodium Succinate (Solu-Medrol 40 Mg) 40 mg IV Q12H [facility] Last Admin: 12/15/18 08:09 Dose: 40 mg Montelukast Sodium (Singulair Tab*) 10 mg PO DAILY [facility] Last Admin: 12/15/18 08:09 Dose: 10 mg Morphine Sulfate (Morphine Oral Concentrate*) 5 mg SL Q2H PRN PRN Reason: air hunger Last Admin: 12/15/18 06:42 Dose: 5 mg Oxycodone/Acetaminophen (Percocet 5/325 Tab*) 1 tab PO Q6H PRN PRN Reason: PAIN Last Admin: 12/11/18 18:25 Dose: 1 tab Pantoprazole Sodium (Protonix Tab*) 40 mg PO DAILY [facility] Last Admin: 12/15/18 08:09 Dose: 40 mg Sertraline HCl (Zoloft*) 50 mg PO DAILY [facility] Last Admin: 12/15/18 08:09 Dose: 50 mg Sodium Chloride (Sodium Chloride 0.65% Nasal [place]*) 2 spray BOTH NARES Q2H PRN PRN Reason: NASAL CONGESTION Last Admin: 12/13/18 08:04 Dose: 2 spray Vital Signs: Vital Signs: Temp Pulse Resp BP Pulse Ox 98.9 F 94 18 167/72 99 12/15/18 07:51 12/15/18 13:22 12/15/18 13:22 12/15/18 07:51 12/15/18 13:22 Patient Weight: Weight 36.287 kg Intake and Output: Intake & Output 12/13/18 12/14/18 12/15/18 12/16/18 06:59 06:59 06:59 06:59 Intake Total 430 180 240 125 Output Total 950 700 Balance -520 180 -460 125 Intake: Oral 430 180 240 125 Output: Urine 950 700 Other: Estimated Void Small Small # Voids 1 1 ADLs: Meal Record Start: 12/11/18 16: 50 Freq: DAILY@0900,1400,1800 Status: Active Protocol: Created 12/11/18 16:50 System (Rec: 12/11/18 16:50 System [id number]) Document 12/11/18 18:00 [id number] (Rec: 12/11/18 21:08 [id number] TELE-C08) Document 12/12/18 09:00 [id number] (Rec: 12/12/18 10:14 [id number] TELE-C05) Document 12/12/18 14:00 [id number] (Rec: 12/12/18 14:50 [id number] TELE-C05) Document 12/12/18 18:00 [id number] (Rec: 12/12/18 18:30 [id number] TELE-C01) Document 12/13/18 09:00 [id number] (Rec: 12/13/18 10:50 [id number] TELE-C11) Document 12/13/18 13:57 [id number] (Rec: 12/13/18 14:26 [id number] TELE-C11) Document 12/13/18 18:00 [id number] (Rec: 12/13/18 20:23 [id number] TELE-C01) Document 12/14/18 09:00 [id number] (Rec: 12/14/18 09:29 [id number] TELE-C05) Document 12/14/18 14:00 [id number] (Rec: 12/14/18 14:28 [id number] TELE-C05) Document 12/14/18 18:00 [id number] (Rec: 12/14/18 18:24 [id number] TELE-C01) Document 12/15/18 09:00 [id number] (Rec: 12/15/18 09:15 [id number] TELE-C03) Intake and Output Start: 12/11/18 11: 39 Freq: Status: Active Protocol: Created 12/11/18 11:39 System (Rec: 12/11/18 11:39 System [id number]) Intake and Output Start: 12/11/18 16: 50 Freq: DAILY@0600,1400,2200 Status: Active Protocol: Created 12/11/18 16:50 System (Rec: 12/11/18 16:50 System [email or web address]-C08) Document 12/11/18 21:53 (Rec: 12/11/18 21:54 TELE-C08) Document 12/12/18 06:00 [id number] (Rec: 12/12/18 06:11 [id number] TELE-C08) Document 12/12/18 14:00 [id number] (Rec: 12/12/18 14:50 [id number] TELE-C05) Document 12/12/18 22:00 [id number] (Rec: 12/12/18 22:09 [id number] TELE-C06) Document 12/13/18 06:00 [id number] (Rec: 12/13/18 06:23 [id number] TELE-C01) Document 12/13/18 13:57 [id number] (Rec: 12/13/18 14:26 [id number] TELE-C11) Document 12/13/18 21:50 [id number] (Rec: 12/13/18 21:51 [id number] TELE-C01) Document 12/14/18 06:00 [id number] (Rec: 12/14/18 06:09 [id number] TELE-C33) Document 12/14/18 14:00 [id number] (Rec: 12/14/18 15:08 [id number] TELE-C05) Document 12/14/18 22:00 [id number] (Rec: 12/14/18 22:45 [id number] TELE-C01) Document 12/15/18 05:36 [id number] (Rec: 12/15/18 05:37 [id number] TELE-C09) Document 12/15/18 06:49 [id number] (Rec: 12/15/18 06:49 [id number] TELE-C09) Eyes: No Scleral Icterus Ears/Nose/Mouth/Throat: NL Teeth, Lips, Gums Neck: NL Appearance and Movements; NL JVP Cardiovascular: NL Sounds; No Murmurs; No JVD, RRR Abdominal: NL Sounds; No Tenderness; No Distention Extremities: No Edema Neurological: Alert and Oriented x 3 - Assessment Assessment: 83 yo female who presented to ER with SOB, CP and end stage COPD - Plan Consult Plan (MU): Palliative Plan: Spoke with pt for a long time about her treatment options. She was living with a niece who also cares for her mother but the niece said she is unable to care for pt at their home. I spoke with niece on the phone in pts room. She said she cries out at night and gets panicky which is wearing out the caregiver. Pt really wants to go home but that is not an option currently because of the level /amount of care needed. [facility] would not take her back even if home aides came in because of the night time issues. We talked about hospice and even though she had a relative who with hospice and the was peaceful she feels she isn't ready to yet and not interested. She does understand her breathing issues are getting worse and she has more care needs. We talked about pursuing [facility] at [facility] she had a relative who went there for rehab and it went well and there are cats/dogs which was appealing to her. She wants to think about this option saying it was a lot of info to take in and she is feeling a little bad that people don't want her. I stressed to her it's not that people don't want her it's that they are worried they are not able to give her the care she needs. Also, I offered to help with a intermediate closer to her son in [place] but she wants to stay in [place] and because she said her son wouldn't visit her anymore in [place]. Attempted to call son but no answer. - Time On Unit Date of Evaluation: 12/15/18 Hospice Consult Time in: 10:00 Hospice Consult Time Out: 11:30 Hospice Consult Time Total: 90 > 50% of Time Spend In Counseling or Coordinating Care: Yes
--- NOTE | 2018-12-15 15:25 | PN ---
Subjective Date of Service: 12/15/18 Interval History: Pt uses 02 at 2.5-3 L at home.Stated that she "feels safe in the hospital". Breathing is at baseline today Objective Active Medications: Albuterol (Ventolin 2.5 Mg/3 Ml Neb.Maureen*) 2.5 mg INH Q2H PRN PRN Reason: SOB/WHEEZING Last Admin: 12/13/18 23:35 Dose: 2.5 mg Albuterol/Ipratropium (Duoneb (Albuterol 2.5 Mg/Ipratropium 0.5 Mg)) 1 neb INH [id number] AWAKE [facility] Last Admin: 12/15/18 13:21 Dose: 1 neb Alprazolam (Xanax Tab*) 0.25 mg PO QID PRN PRN Reason: ANXIETY Last Admin: 12/15/18 12:49 Dose: 0.25 mg Aspirin (Aspirin Ec Tab*) 81 mg PO DAILY [facility] Last Admin: 12/15/18 08:09 Dose: 81 mg Budesonide (Pulmicort Neb*) 0.5 mg INH RT.BID [facility] Last Admin: 12/15/18 07:57 Dose: 0.5 mg Cetirizine HCl (Zyrtec*) 10 mg PO DAILY [facility] Last Admin: 12/15/18 08:09 Dose: 10 mg Docusate Sodium (Colace Cap*) 100 mg PO BID [facility] Last Admin: 12/15/18 08:08 Dose: 100 mg Famotidine (Pepcid Tab*) 10 mg PO BID PRN PRN Reason: INDIGESTION Last Admin: 12/11/18 18:25 Dose: 10 mg Ferrous Gluconate (Fergon Tab*) 324 mg PO DAILY [facility] Last Admin: 12/15/18 08:08 Dose: 324 mg Fluticasone Propionate (Flonase Nasal [place] 50mcg*) 2 spray BOTH NARES 0900 [facility] Last Admin: 12/15/18 08:09 Dose: 2 spray Guaifenesin (Mucinex*) 600 mg PO BID [facility] Last Admin: 12/15/18 08:09 Dose: 600 mg Heparin Sodium (Porcine) (Heparin Vial(*)) 5,000 units SUBCUT Q8HR [facility] Last Admin: 12/15/18 13:02 Dose: 5,000 units Methylprednisolone Sodium Succinate (Solu-Medrol 40 Mg) 40 mg IV Q12H [facility] Last Admin: 12/15/18 08:09 Dose: 40 mg Montelukast Sodium (Singulair Tab*) 10 mg PO DAILY [facility] Last Admin: 12/15/18 08:09 Dose: 10 mg Morphine Sulfate (Morphine Oral Concentrate*) 5 mg SL Q2H PRN PRN Reason: air hunger Last Admin: 12/15/18 14:46 Dose: 5 mg Oxycodone/Acetaminophen (Percocet 5/325 Tab*) 1 tab PO Q6H PRN PRN Reason: PAIN Last Admin: 12/11/18 18:25 Dose: 1 tab Pantoprazole Sodium (Protonix Tab*) 40 mg PO DAILY [facility] Last Admin: 12/15/18 08:09 Dose: 40 mg Sertraline HCl (Zoloft*) 50 mg PO DAILY [facility] Last Admin: 12/15/18 08:09 Dose: 50 mg Sodium Chloride (Sodium Chloride 0.65% Nasal [place]*) 2 spray BOTH NARES Q2H PRN PRN Reason: NASAL CONGESTION Last Admin: 12/13/18 08:04 Dose: 2 spray Vital Signs - 8 hr 12/15/18 12/15/18 12/15/18 07:43 07:51 07:59 Temperature 98.9 F Pulse Rate 93 95 Respiratory 16 16 20 Rate Blood Pressure 167/72 (mmHg) O2 Sat by Pulse 100 100 Oximetry 12/15/18 12/15/18 12/15/18 08:57 09:01 10:34 Temperature Pulse Rate Respiratory 20 20 20 Rate Blood Pressure (mmHg) O2 Sat by Pulse Oximetry 12/15/18 12/15/18 12/15/18 12:09 12:49 13:22 Temperature 98.6 F Pulse Rate 91 94 Respiratory 18 22 18 Rate Blood Pressure 134/71 (mmHg) O2 Sat by Pulse 100 99 Oximetry 12/15/18 12/15/18 14:27 14:46 Temperature Pulse Rate Respiratory 20 26 Rate Blood Pressure (mmHg) O2 Sat by Pulse Oximetry Oxygen Devices in Use Now: OxyMask Appearance: 83 yo F in nAD, AAOx3, thin body habitus, barrel chest Eyes: No Scleral Icterus, PERRLA Ears/Nose/Mouth/Throat: NL Teeth, Lips, Gums, Mucous Membranes Moist Neck: NL Appearance and Movements; NL JVP, Trachea Midline Respiratory: Symmetrical Chest Expansion and Respiratory Effort, - - dminished breath sounds, b/l , no wheezes Cardiovascular: RRR, - - 2/6 EITAN Abdominal: NL Sounds; No Tenderness; No Distention, No Hepatosplenomegaly Lymphatic: No Cervical Adenopathy Extremities: No Clubbing, Cyanosis, - - +1 pitting pedal edema b/l Skin: No Nodules or Sclerosis, - - pressure ulcer on sacrum noted Neurological: Alert and Oriented x 3, NL Muscle Strength and Tone - Nutrition: Malnutrition Diagnosis/Plan Malnutrition Assessment by Registered Dietitian: Malnutrition Assessment Clinical Characteristics Acute,Severe Malnutrition Assessment: - 50% (or less than) estimated energy Criteria expenditure > 5 days - 7.2% - 17.5% wt loss since 10/20/18 (x < 2 months) Malnutrition Assessment: - Pt dislikes Ensure Enlive as is causes Interventions congestion - Unsure if pt has tried Ensure Clear, although will refrain at this time due to fluid restriction - Will trial Ensure pudding daily @ D: 170 kcals , 4 grams protein Malnutrition Assessment: Goals 1. Adequate PO intake to promote repletion of lean body mass, maintain appropriate hydration, and prevent additional undesired wt loss - Goal: > 50% of meals Result Diagrams: 12/14/18 04:16 12/12/18 05:33 Microbiology and Other Data: Microbiology 12/11/18 18:00 Urine Culture - Preliminary Urine Klebsiella Pneumoniae 12/11/18 18:00 Legionella Urinary Antigen - Final Urine Negative Legionella Antigen Streptococcus pneumoniae Ag Screen - Final Negative S. pneumo Antigen 12/11/18 13:26 Influenza Types A,B Antigen - Final Nasal Specimen received for Influenza A/B Molecular testing Assess/Plan/Problems-Billing Ms Gomez is an 83 yo F with advanced COPD with chronic hypoxic respiratory failure on 2.5L O2 continuously, moderate to severe and anxiety who presented to the ER just 2 days after discharge from a prolonged hospitalization from 12/01/18-12/09/18 where she was treated for a COPD exacerbation, now with c/o worsened SOB. - Patient Problems (1) COPD exacerbation Comment: Acute on Chronic Hypoxic Respiratory Failure Poor reserve; pain and anxiety amplify symptoms Continue nebs and solumedrol will be swithced to Prednisone appreciate hospice or palliative serviceconsult. Pt feels " not ready" for hospice. will ask PT/OT to see pt for possible STR-pt agrees (2) Anxiety Comment: controlled. She remains on sertraline 50mg daily and prn xanax. Continue supportive care. We have initiated roxanol for air hunger (3) Aortic stenosis Comment: stable, volume stable BETTINA 1 cm. (4) Compression fracture Comment: T9 fracture noted no pain at this time with brace (5) Stage II pressure ulcer of buttock Comment: - Bilateral buttocks wound consult ordered, will order air matress (6) Hyponatremia Comment: chronic, sodium level at baseline (7) DVT prophylaxis Comment: SQ heparin Status and Disposition: inpatient. likely will need STR
[2018-12-15] MEDS ORDERED: Morphine VIAL* 4 MG/ML VIAL (1 ml vial) IV ONE (16:04)
[2018-12-15] MEDS ORDERED: Nitroglycerin TAB 0.4 MG* 0.4 MG TAB SL ONE (16:05)
[2018-12-15] MEDS ORDERED: Morphine VIAL* 10 MG/ML 1 ML VIAL IV ONE (17:00)
[2018-12-15] MEDS ORDERED: Furosemide IV* 10 MG/ML 2 ML VIAL (20 MG) IV ONE (17:11)
--- NOTE | 2018-12-15 17:13 | PN ---
Progress Note - Progress Note Date of Service: 12/15/18 Note: Later in PM pt developed CP(c/o heaviness with breathing). EKG showed no new changes and troponin was neg. Pt will be medicated with morphine. On exam noted more crackles at lower lung field auscultation. Possible mild acute diastolic CHF. will tx with Lasix 10 mg IV x1.
[2018-12-16] MEDS: Albuterol/Ipratropium NEB.SOL* Albuterol 2.5 MG/Ipratropium 0.5 MG 3 ML INH SCH ×3 (02:06→13:25)
[2018-12-16] MEDS: Heparin VIAL(*) 5000 UNITS/ML VIAL (FIVE THOUSAND) SUBCUT SCH (05:40)
[2018-12-16 06:18] LABS: BUN/Creatinine Ratio 38.5 (8-20); Calcium 9.2 mg/dL (8.6-10.3); EGFR African American 190.9 (>60); EGFR Non-African American 157.7 (>60); Potassium 4.3 mmol/L (3.5-5.0)
[2018-12-16] MEDS: Morphine ORAL CONCENTRATE* 5 MG/0.25 ML ORAL.SYRIN SL PRN ×4 (07:24→13:10)
[2018-12-16] MEDS: ALPRAZolam TAB* 0.25 MG PO PRN ×3 (07:24→13:10)
[2018-12-16] MEDS: Budesonide NEB* 0.5 MG/2 ML NEB.SOLN INH SCH (07:52)
[2018-12-16] MEDS ORDERED: predniSONE TAB* 20 MG PO SCH (09:00)
[2018-12-16] MEDS: Ferrous Gluconate TAB* 324 MG TAB PO SCH (09:20)
[2018-12-16] MEDS: Aspirin EC TAB* 81 MG TAB.EC PO SCH (09:20)
[2018-12-16] MEDS: Cetirizine* 10 MG TAB PO SCH (09:20)
[2018-12-16] MEDS: Pantoprazole TAB * 40 MG TAB PO SCH (09:20)
[2018-12-16] MEDS: Docusate CAP* 100 MG PO SCH (09:20)
[2018-12-16] MEDS: Montelukast Sodium TAB* 10 MG PO SCH (09:20)
[2018-12-16] MEDS: guaiFENesin ER TAB 600 MG PO SCH (09:20)
[2018-12-16] MEDS: Sertraline* 50 MG TAB PO SCH (09:20)
[2018-12-16] MEDS: Fluticasone NASAL SPRAY 50MCG* 16 gm SPRAY BTL BOTH NARES SCH (09:30)
[2018-12-16 12:34] VITALS: BP 146/74
--- NOTE | 2018-12-16 12:57 | DS ---
CC: Dr. Bird; [facility] * DISCHARGE SUMMARY: DATE OF ADMISSION: 12/11/18 DATE OF DISCHARGE AND TRANSFER: To [facility] facility for short- term rehabilitation is 12/16/18. PRIMARY CARE PROVIDER: Dr. Bird. DISCHARGE DIAGNOSES: 1. Chronic obstructive pulmonary disease exacerbation. 2. Anxiety. 3. Episodes of chest pain related to chronic obstructive pulmonary disease. SECONDARY DIAGNOSES: 1. History of chronic obstructive pulmonary disease, on home oxygen at 2.5 L, endstage. 2. Anxiety. 3. Ltrxfsom-nl-rxrtbr aortic stenosis. 4. History of T9 compression fracture, old. 5. Iron-deficiency anemia. CONSULTATIONS DURING THE HOSPITAL STAY: Included Dr. Neha Blake [facility]. MEDICATIONS AT DISCHARGE: Include: 1. Levaquin 500 mg for a total of 7 days and that is daily. 2. Prednisone taper 60 mg daily for a total of 4 days, then 40 mg daily for a total of 4 days, then 20 mg daily for 4 days, then 10 mg daily for 4 days, then stop. The remaining medications are mostly unchanged and include: 1. Acetaminophen on a p.r.n. basis. 2. Albuterol inhaler on a p.r.n. basis. 3. DuoNeb treatment 4 times a day scheduled. 4. Fosamax 70 mg weekly. 5. Xanax 0.25 mg 4 times a day p.r.n. 6. Pulmicort nebulizer 0.5 mg b.i.d. 7. Clobetasol 0.05% topical cream to affected areas b.i.d. p.r.n. 8. Clarinex 5 mg daily. 9. Colace 100 mg b.i.d. 10. Pepcid 10 mg b.i.d. 11. Ferrous gluconate 325 mg daily. 12. Mucinex ER 600 mg b.i.d. 13. Systane gel 0.3% to both eyes daily. 14. Ketoconazole 2% cream 1 application b.i.d. p.r.n. 15. Claritin 10 mg daily. 16. Singulair 10 mg daily. 17. Omeprazole 20 mg daily. 18. Zofran on a p.r.n. basis. 19. Oxycodone with acetaminophen 5/325 mg 1 tablet every 6 hours p.r.n. 20. Sodium chloride/saline nasal spray on a p.r.n. basis to nostrils. 21. Spiriva 1 inhalation daily. 22. Aspirin 81 mg daily. 23. Morphine oral concentrate 5 mg every 2 hours p.r.n. pain, shortness of breath. LABORATORY DATA AND STUDIES PERFORMED DURING THE HOSPITAL STAY: Included on , white blood cell count is 10.9, hemoglobin of 10.6, hematocrit of 32, and platelets of 300. Sodium was 132, potassium of 4.3, chloride 84, carbon dioxide 44, BUN 15, creatinine 0.39. Troponins initially were 0.04 to 0.05 at admission. Last troponin was noted to be on 12/15/18 was 0.02. Transthoracic echocardiogram obtained on 12/11/18 showed EF of 65% with mild LVH with abnormal left ventricular diastolic filling observed compared with impaired relaxation. There was [id number] aortic stenosis with aortic valve area calculated at 1.[address] angiogram of the chest obtained on 12/11/18, impression: "No pulmonary embolus noted. A 6 mm nodule in the lingula is noted. This was unchanged from 11/26/15 and likely a benign finding. No evidence of dissection is noted." Microbiology studies: Urine cultures were positive for klebsiella at 10,000 to 25,000 colonies that was obtained on 12/11/18. Sputum cultures obtained on were positive for serratia, sensitive to fluoroquinolones, cefepime, aztreonam, meropenem and Bactrim. ABG obtained on 12/12/18 showed pH of 7.36, pCO2 of 62, pO2 of 107, bicarb of 30.7. HOSPITALIZATION COURSE: Yelitza Gomez is an 83-year-old female, who had been hospitalized in November 2018 already twice. This was her second hospital stay. She was hospitalized from 12/01/18 to 12/09/18. At that point, she was refused to be placed into short-term rehabilitation facility and she went back home. On 12/11/18, she came back again complaining of anxiety and shortness of breath. At that point, she was rehospitalized and it became apparent that the patient should be in short-term rehabilitation facility or hospice. She was evaluated by our hospice provider security sales consultant and was noted to may be an appropriate candidate for hospice, but the patient herself refused. The patient also underwent physical therapy and occupational therapy evaluation. She was noted to have stage II sacral ulcer from immobility. She was deemed to be good candidate for short-term rehabilitation and she accepted a bed at [facility] to be transferred on 12/16/18. The patient was managed throughout her hospital stay with Solu-Medrol and prednisone. The patient's cultures from sputum just before her discharge were positive for serratia. At that point, the patient was placed on Levaquin to continue 7 days' treatment. Please note that throughout the patient's both hospital stays of total now almost 2 weeks, the patient really did not feel any drastic change or improvement. She still feels the same shortness of breath as she felt during her first hospital stay and at admission of her second hospital stay this November. I had a long discussion with the patient. We both noted that the patient had severe endstage COPD. Her BMI is 16. She was offered comfort care and hospice, but once again she refused. Most of it is likely due to the patient 's anxiety. I also had a long conversation with the patient's son, Walter Hdez, who is aware that the patient is in endstage COPD and will unlikely have any improvement in her respiratory condition. She was continued on her Xanax that she had been taking at home and she was prescribed Roxanol (morphine ) oral concentrate for dyspnea and pain, which she tolerated well. She is going to be discharged to the [facility] with recommendation to follow up with hospice referral after discharge. PHYSICAL EXAMINATION: At the time of transfer, blood pressure of 150/64, heart rate of 92 and regular, respiratory rate 20, oxygen saturation 100% on 2.5 L of nasal cannula, temperature of 98.1. General: The patient is a pleasant 83-year - old female, who is of thin body habitus. The patient is in no acute distress. Alert, awake, and oriented x3. HEENT: Head: Atraumatic, normocephalic. Eyes: Pupils are equal, reactive to light and accommodation. Oropharynx is clear. Mucosa moist. Neck: Supple. No JVD. No bruits bilaterally. Cardiovascular: Regular rate and rhythm with 2/6 systolic ejection murmur noted on auscultation of the right upper sternal border radiating to bilateral carotids. Respiratory: Very distant breath sounds bilaterally. No wheezes. Abdomen: Soft, nontender. Bowel sounds are present in all 4 quadrants. Extremities: There is no edema. Pulses are +2 bilaterally. No clubbing or cyanosis. On evaluation of the skin, the patient has an approximately 10-cm stage II decubitus sore on her sacrum. The area is blanchable with no open spots. Neuro Evaluation: Speech is clear. Cranial nerves II through XII grossly intact. Motor strength is 5/5 bilaterally. Please note that this is a short summary of the patient's hospital stay. Please refer to further medical records for details. TIME SPENT: Approximately 45 minutes was spent on the patient's discharge. [id number]/[facility] #: [id number] STEFFANY
== END 2018-12-16 13:45 | DRG 190 ==
LOC: ED 11:26 → MEDTELE 15:43
PROVIDERS: ADMIT Internal Medicine; ATTEND Internal Medicine
DX: J44.1 Chronic obstructive pulmonary disease with (acute) exacerbation (principal); I50.31 Acute diastolic (congestive) heart failure; J96.21 Acute and chronic respiratory failure with hypoxia; Z68.1 Body mass index [BMI] 19.9 or less, adult; E87.1 Hypo-osmolality and hyponatremia; L89.152 Pressure ulcer of sacral region, stage 2; Z99.81 Dependence on supplemental oxygen; E86.0 Dehydration; I35.0 Nonrheumatic aortic (valve) stenosis; F41.9 Anxiety disorder, unspecified; R07.9 Chest pain, unspecified; D50.9 Iron deficiency anemia, unspecified; E16.2 Hypoglycemia, unspecified; Z87.311 Personal history of (healed) other pathological fracture; Z79.1 Long term (current) use of non-steroidal anti-inflammatories (NSAID); Z79.51 Long term (current) use of inhaled steroids; Z79.52 Long term (current) use of systemic steroids; Z79.899 Other long term (current) drug therapy; Z88.5 Allergy status to narcotic agent; Z88.8 Allergy status to other drugs, medicaments and biological substances; Z82.3 Family history of stroke; Z87.891 Personal history of nicotine dependence
CPT/HCPCS: 36415; 36600; 71045; 71275; 80048; 80053; 81003; 81015; 82533; 82550; 82553; 82803; 83605; 83735; 83880; 83935; 84300; 84443; 84484; 85025; 85379; 85610; 85652; 85730; 86140; 87070; 87077; 87086; 87186; 87205; 87899; 93005; 93306; 94640; 99284; A9270-GY; G8978-GP-CJ; G8979-GP-CJ; G8980-GP-CJ; G8987-GO-CK; G8988-GO-CI; J0360; J1644; J1940; J2270; J2920; J2930; J3475; J7512; Q9967